=== PATIENT | female | born 1950 | race Caucasian/White ===

== ENCOUNTER → 2018-05-14 15:22 | Outpatient (CLI) | payer OTHER, SELFPAY ==
[2018-05-14 17:30] LABS: Add Manual Diff / Slide Review NO; Basophils Absolute Auto 100 /uL (0-100); Basophils Percent Auto 0.8 % (0-2); Eosinophils Absolute Auto 200 /uL (0-450); Eosinophils Percent Auto 1.7 % (2-4); Hematocrit 35.1 % (36-46); Hemoglobin 11.8 g/dL (12.0-16.0); Lymphocytes Absolute Auto 800 /uL (1100-4500); Mean Corpuscular HGB Conc 33.7 % (30-36); Mean Corpuscular Volume 92.1 fL (80-100); Monocytes Absolute Auto 600 /uL (0-900); Monocytes Percent Auto 6.4 % (3-14); Neutrophils Absolute Auto 7100 /uL (1500-7000); Neutrophils Percent Auto 82.1 % (50-75); Platelet Count 310 X10^3/uL (150-400); Red Blood Cell Count 3.81 X10^6/uL (4.0-5.2); Red Cell Distribution Width 16.1 % (11.6-14.8); White Blood Cell Count 8.6 X10^3/uL (4.5-11.0)
== END ==
DX: D61.818 Other pancytopenia (principal)
CPT/HCPCS: 36415; 85025

== ENCOUNTER → 2018-05-18 15:00 | Oncology outpatient (ONC) | payer OTHER, SELFPAY ==
[2018-04-14 16:05] VITALS: BP 116/63; PULSE 76; RESP 18; TEMP 37.1; O2SAT 99
--- NOTE | 2018-04-14 16:59 | ONC.CONS ---
History of Present Illness - Data of Consult Consult date: 04/14/18 Primary Care Provider: Iraida Elizondo - Consult Narrative Narrative: Diagnosis: Pancytopenia History of present illness: Piper Heath is a 68 year old female who is referred for further evaluation of marked pancytopenia. The patient reports that she has a history of psoriatic arthritis as well as rheumatoid arthritis and diabetes. For the arthritis, she had been taking a combination of methotrexate 7.5 mg weekly as well as Remicade and folic acid. In February, she reports that she had been feeling poorly. She noticed that she was having increasing weakness and fatigue as well as dyspnea on exertion. Her exercise tolerance had been declining. Despite these symptoms, she is anxious to visit her daughter in [place]. While there, she began to have spontaneous bleeding with epistaxis in gingival bleeding as well as vaginal and rectal bleeding and bruising. Because of these symptoms she was brought to the hospital therapy. She was found to have marked pancytopenia with a white count of 0.4 a platelet count of 33 and a hemoglobin of 7.9 and hematocrit of 23. Her neutrophil count was close to 0. Over the ensuing several days, her white count gradually started to improve. She did require both red cell and platelet transfusions. She did have a bone marrow biopsy done that showed a hypocellular marrow but no morphologic evidence of dysplasia or leukemia. There was a left shift suggesting recovery from acute toxic event. 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 Viral studies did not show any have a dense of hepatitis, HIV or EBV or active CMV. The patient was started empirically on steroids and reportedly had rapid recovery after that. During the time when her counts were low, she was treated with antibiotics. She required both platelet and red cell transfusions. She had extensive mucositis as well as what sounds like a petechial skin rash. Those have all resolved. She was put on a prednisone taper at the time of her hospital discharge which she finished about a week or 2 weeks ago. Today, she still has some fatigue but is definitely better than it had been. She has not noted any recent bleeding or bruising. No fevers chills or sweats. She has not had any unexplained pain. Her psoriatic arthritis however has begun to be more active. She notes pain in her hands and her feet. Her past medical history is notable for diabetes. She has chronic renal insufficiency and has had multiple attempts at fistula placement in anticipation of dialysis but has trouble with clotting. She has a history of hypertension and hyperlipidemia. She has a history of psoriatic arthritis. She also has some asthma. Her surgical history is notable for multiple revision the Ann. She has had a prior ankle fracture. She has had a carpal tunnel release. Social history: She is retired. 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 She has a distant history of tobacco but quit many years ago. She does have occasional alcohol use. Her history mother who at age 47 of an unknown rare blood condition. Her father had lymphoma. There is no other family history of malignancy. CC: Ceasar Bear MD Home Medications and Allergies Allergies Allergy/AdvReac Type Severity Reaction Status Date / Time Penicillins Allergy Severe Difficulty Verified 04/14/18 16:12 Breathing Medical History - Social History Smoking Status: Former smoker Substance Use Type: does not use Alcohol Intake: current Alcohol Intake Frequency: 0-2 drinks per day Current Occupational Status: retired Review of Systems - Patient Self-Reported Symptoms SR Constitution: Fatigue/Malaise, Night Sweats SR ears, nose, mouth, throat issues: Cough, Nose bleeds, Mouth sores SR respiratory issues: Shortness of breath SR Cardiovascular issues: Extreme swelling, Dizzy/lightheaded SR Skin issues: Hair loss or scalp prob, Nail changes SR Gastrointestinal issues: Poor or no appetite, Nausea SR Musculoskeletal issues: Joint pain or swelling, Back or neck pain, Difficulty walking SR Neuro issues: Lightheaded/dizzy, Tremors or shaking Constitutional: decreased activity level Ears, nose, mouth, throat: lightheadedness, gingival bleeding, sore throat Cardiovascular: dyspnea on exertion Musculoskeletal: pain Integumentary: rash, bleeding or bruising Exam - Constitutional positive no acute distress, positive average body habitus - Routine HEENT Exam Head: Present: normocephalic, atraumatic Eye: Present: EOMI, PERRL. Absent: conjunctival icterus, scleral injection ENT: Present: mucous membranes moist, oropharynx clear - Routine Neck Exam Present: supple. Absent: lymphadenopathy, thyromegaly - Routine Chest/Breast/Axilla Exam Axillae: Absent: lymphadenopathy - Routine Respiratory Exam Present: Clear to auscultation bilaterally. Absent: rales, wheezes - Routine Cardiovascular Exam Present: RRR, S1, S2. Absent: murmur - Routine Abdominal Exam Present: soft, normoactive bowel sounds. Absent: tenderness, organomegaly, mass - Routine Extremities Exam Absent: cyanosis, clubbing, edema - Routine Back/Spine Exam Back/Spine: Absent: paraspinal tenderness, vertebral tenderness - Routine Skin Exam Present: intact. Absent: petechiae, rash - Routine Neurological Exam Present: alert, oriented X3 - Routine Psychiatric Exam Present: normal affect, normal thought process Results - Labs Her most recent CBC on March 24 showed a white count of 20.8 hemoglobin 10.7 hematocrit 30.8 platelets [id number]. On March 13 her white count had been 0.4 hemoglobin 7.9 hematocrit 23 [place] [address]. Assessment and Plan (1) Pancytopenia Current visit: Yes Status: Acute 68-year-old woman who was hospitalized in [place] with significant pancytopenia. Her bone marrow showed a hypoplasia with a left shift suggesting recovery from a toxic event. She had been on methotrexate and does have chronic renal insufficiency. This could potentially account for cytopenias, thinning of the hair, mucositis and skin rash. Her daughter relates that she recovered quickly after starting on steroids suggesting that there might have been an autoimmune condition as well. Reassuring only this does not look like aplastic anemia or myelodysplasia. There does not seem to be an underlying leukemia. None of her other medications are likely to have caused such profound cytopenias. It is reassuring that she is improving. At this point, I do not think any further evaluation is needed. Instead, we will just observe her blood counts and have her return to clinic in about 4 weeks or so for follow-up. If her counts worsen, we may need to consider additional steroids or perhaps a repeat bone marrow biopsy. Her psoriatic arthritis seems to be flaring. 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 She will return to clinic in about 4 weeks or so for follow-up.
--- NOTE | 2018-05-18 08:21 | ONC.SCHED ---
insurance verified through phone call to patient's insurance [id number], automated response stated patient covered as of 04/20/18
[2018-05-18 15:23] VITALS: BP 122/64; PULSE 64; RESP 16; TEMP 36.6; O2SAT 98
--- NOTE | 2018-05-18 15:37 | P.PNONC_ITS ---
PN -Subjective Interval history: Diagnosis: Pancytopenia Previous treatment has been steroids. Interval history The patient is a 68-year-old woman who returns today for follow-up. She was seen initially in March. She had presented with complaints of fatigue and weakness in [place]. She was found to have a marked pancytopenia requiring both the red cell and platelet transfusions. Her neutrophil count was near 0. She had a bone marrow biopsy done that showed pancytopenia with no significant morphologic abnormalities. Bone marrow was hypocellular. She started treatment with steroids and had rapid improvement in her counts. When I saw her in March, her hemoglobin was 10.7 hematocrit was 30.8 platelets were 387, 000. Her white count was 20.8. Since then, she has tapered off of her prednisone. She has had worsening of her psoriasis. She has had continued fatigue and weakness. She denies any unusual bleeding or bruising. She has had a cold recently but no other infectious complications. Her most recent CBC from earlier this week showed a white count of 8.6 hemoglobin 11.8 hematocrit 35.1 platelets [id number]. Her current medications include albuterol amlodipine try core Advair Lasix gabapentin insulin levothyroxine nortriptyline omeprazole and Crestor. - Patient Self-Reported Symptoms SR Constitution: Fatigue/Malaise, Night Sweats SR ears, nose, mouth, throat issues: Congestion, Hoarseness SR respiratory issues: Cough, Shortness of breath SR Cardiovascular issues: Extreme swelling, Dizzy/lightheaded SR Skin issues: Dry skin, Skin rash or itching, Hair loss or scalp prob SR Gastrointestinal issues: Poor or no appetite, Nausea SR Musculoskeletal issues: Joint pain or swelling, Back or neck pain, Difficulty walking SR Neuro issues: Lightheaded/dizzy Home Medications and Allergies Home Medications Medication Instructions Recorded Confirmed Type Diphenhydramine-Lidocaine Viscous 15 ml PO QID PRN 04/16/18 History Maalox Mouthwash One Touchverio In Vitro Strip 04/16/18 04/16/18 History acebutolol 400 mg PO BID 04/16/18 04/16/18 History albuterol sulfate [Ventolin HFA] 2 puff INHALATION Q4-6H PRN 04/16/18 04/16/18 History amlodipine 5 mg PO DAILY 04/16/18 04/16/18 History fenofibrate nanocrystallized 48 mg PO DAILY 04/16/18 04/16/18 History [Tricor] fluticasone-salmeterol [Advair 1 inh INHALATION BID 04/16/18 04/16/18 History Diskus] furosemide 20 mg PO Q OTHER DAY 04/16/18 04/16/18 History gabapentin 300 mg PO TID 04/16/18 04/16/18 History inhalational spacing device [E-Z 04/16/18 04/16/18 History Spacer] insulin NPH isoph U-100 human 45 unit SUBCUT QPM 04/16/18 04/16/18 History [Novolin N NPH U-100 Insulin] insulin aspart U-100 [Novolog 4 - 10 unit SUBCUT QPM 04/16/18 04/16/18 History Flexpen U-100 Insulin] insulin detemir U-100 [Levemir 36 unit SUBCUT QPM 04/16/18 04/16/18 History FlexTouch U-100 Insuln] insulin syringe-needle U-100 [BD 04/16/18 04/16/18 History Insulin Syringe] levothyroxine [Synthroid] 75 mcg PO DAILY 04/16/18 04/16/18 History nortriptyline 25 mg PO BID 04/16/18 04/16/18 History omega 2-[id number]-fish oil [Fish Oil] 1 cap PO TID 04/16/18 04/16/18 History omeprazole 20 mg PO BID 04/16/18 04/16/18 History pen needle, diabetic [Unifine 04/16/18 04/16/18 History Pentips] rosuvastatin [Crestor] 40 mg PO DAILY 04/16/18 04/16/18 History spironolacton-hydrochlorothiaz 1 tab PO DAILY 04/16/18 04/16/18 History Allergies Allergy/AdvReac Type Severity Reaction Status Date / Time Penicillins Allergy Severe Difficulty Verified 04/14/18 16:12 Breathing Exam - Constitutional positive no acute distress, positive obese - Routine HEENT Exam Head: Present: normocephalic, atraumatic Eye: Present: EOMI, PERRL. Absent: conjunctival icterus, scleral injection ENT: Present: mucous membranes moist, oropharynx clear - Routine Neck Exam Present: supple. Absent: lymphadenopathy, thyromegaly - Routine Respiratory Exam Present: Clear to auscultation bilaterally. Absent: rales, wheezes - Routine Cardiovascular Exam Present: RRR, S1, S2. Absent: murmur - Routine Abdominal Exam Present: soft, normoactive bowel sounds. Absent: tenderness, organomegaly, mass - Routine Extremities Exam Absent: cyanosis, clubbing, edema - Routine Skin Exam Present: intact, rash Comments: She has a rash involving both hands forehead and scalp. - Routine Neurological Exam Present: alert, oriented X3 - Routine Psychiatric Exam Present: normal affect, normal thought process Assessment and Plan (1) Pancytopenia Current visit: Yes Status: Acute 68-year-old woman who was hospitalized in [place] with significant pancytopenia. Her bone marrow showed a hypoplasia with a left shift suggesting recovery from a toxic event. She had been on methotrexate and does have chronic renal insufficiency. This could potentially account for cytopenias, thinning of the hair, mucositis and skin rash. Her daughter relates that she recovered quickly after starting on steroids suggesting that there might have been an autoimmune condition as well. Reassuring only this does not look like aplastic anemia or myelodysplasia. There does not seem to be an underlying leukemia. None of her other medications are likely to have caused such profound cytopenias. It is reassuring that she is improving. Currently, her CBC has almost completely normalized. I think whatever caused her cytopenias has resolved. I think it is okay for her to resume treatment for her psoriasis although I would caution against methotrexate. I have not scheduled a follow-up appointment for her here but would be happy to see her again in the future should the need arise.
== END ==
DX: D61.818 Other pancytopenia (principal)
CPT/HCPCS: 99205; 99214; 99215

== ENCOUNTER 2019-02-18 12:30 | Outpatient (RCR) | payer OTHER, SELFPAY ==
--- NOTE | 2019-01-24 12:44 | PT.OIE ---
Current Diagnoses Fibromyalgia (01/24/19) Visit Care Team Role Provider Type Demetra Winston MD Attending Provider Non-Staff Specialty: Rheumatology Address: [address] [place] [address] [place], [address] Email: Physical Therapy Initial Evaluation PT-OP-A Visit Information Start: 01/24/19 07:53 Freq: Status: Active Protocol: Document 01/24/19 09:45 MB (Rec: 01/24/19 12:42 MB [id number]) Out-Patient Physical Therapy Visit Information Visit Information Visit Type Initial Evaluation Visit Note See assessment Visit Start Time 09:45 Visit Stop Time 10:28 Total Visit Minutes 43 Visit Number 1 Number of PHOTO INTERN Visits 0 Evaluation Information Evaluation Date 01/24/19 Precautions Precautions Pt has fear of falling, reports light-headedness upon sitting up. Lots of pain with little tolerance to ROM and no tolerance to MMT PT-OP-B Current Condition Start: 01/24/19 07:53 Freq: Status: Active Protocol: Document 01/24/19 09:45 MB (Rec: 01/24/19 12:42 MB [id number]) Current Condition History of Current Condition Onset Date Chronic progressive Current Complaints Multi-joint pain History of Current Condition Pt with history of chronic, progressive pain in setting of new dx fibromyaglia. She reports long illness last year d/t immunocompromised. She reports history of psoriatic arthritis and getting Remicade infusions every 6 weeks. She reports pain in B knees, ankles, back, neck and B shoulders. Most pain rated 8/ 10 at rest and with ROM in shoulder and neck. Prior Treatments and Tests Remicade, Methotrexate Treatment Goals Patient/Caregiver Goals To decrease pain and be able to walk with less pain Prior Functional Status Baseline Function- Other I gait with occ use of cane. She does not bring cane to appointment Personal Factors Other Personal Factors That May Effect Multi-joint pain, decreased Therapy/Recovery affect, fear of falling, fear of being looked at (she would like to get in the pool but has concerns about being in her swimsuit), overall fear of movement, balance testing, guarded PT-OP-C Subjective Start: 01/24/19 07:53 Freq: Status: Active Protocol: Document 01/24/19 09:45 MB (Rec: 01/24/19 12:42 MB [id number]) OP-PT Subjective Patient Comments Patient Comments Pt reports constant pain as described above, worse in her shoulders and neck. OP-PT Pain Assessment Comments Pain Comments B ankle, B knee, back, B shoulder and neck pain, worse pain in neck and shoulders rated as 8/10 at rest and with ROM this date. She limits ROM and cannot tolerate MMT d/t pain PT-OP-D Balance Start: 01/24/19 07:53 Freq: Status: Active Protocol: Document 01/24/19 09:45 MB (Rec: 01/24/19 12:44 MB [id number]) Balance Tests Other Other Balance Tests Performed Romberg with socks 30 sec; Romberg eyes closed--pt stops test d/t fear of falling PT-OP-J Posture/Palpation/Skin Start: 01/24/19 07:53 Freq: Status: Active Protocol: Document 01/24/19 09:45 MB (Rec: 01/24/19 12:42 MB [id number]) Posture Evaluation Comments Posture Comments Standing posture: forward head , rounded shoulders, Dowager's hump, decreased thoracic kyphosis, increased lumbar lordosis. Active cervical ROM in standing with reports of 8/ 10 pain and crunching in neck with all movement: extension 10 deg; flexion 20 deg; B SB 10 deg; rotation left 20 deg, right 24 deg Skin Assessment Other Assessments Skin Assessment Comments Some psoriatic patches that are small red dots over her wrists and dorsum of hands PT-OP-M Strength Start: 01/24/19 07:53 Freq: Status: Active Protocol: Document 01/24/19 09:45 MB (Rec: 01/24/19 12:42 MB [id number]) Shoulder Strength Shoulder Manual Muscle Testing Left Comments Pt does not tolerate any MMT. She presents with decreased AROM left shoulder flexion to 70 deg and abduction to 75 deg . Reports neck and scapular pain Right Comments Pt does not tolerate any MMT. She presents with decreased AROM right shoulder flexion to 80 deg and abduction to 80 deg. Reports neck and scapular pain PT-OP-T Assessment and Plan Start: 01/24/19 07:53 Freq: Status: Active Protocol: Document 01/24/19 09:45 MB (Rec: 01/24/19 12:42 MB [id number]) Physical Therapy Assessment Rehab Potential Rehabilitation Potential Fair Evaluation Complexity Number of Personal Factors/Comorbidities 1-2 Impairments Impairments Activity Tolerance,Balance, Gait,Pain,Posture,ROM,Soft Tissue Mobility,Strength, Vestibular Other Impairments Pt reports light headedness when moving from lying to sitting and may benefit from having orthostatics checked in future treatments. She presents with dizziness with eyes closed Romberg and may benefit from having VOR checked/exercises Other Concerns Fall Risk Yes, at least 5 falls in 5 years, light headedness Barriers to Rehabilitation Fearfulness/guarding d/t pain, fear of pain, fear of falling , not wanting people to see her in swimsuit but stating that getting in the pool was helpful on vacation to [place] Goals 5 Fpc Goal (LTG) Pt will perform progressive HEP with I by 03/26/19. LTG Duration 8 weeks 4 Lab Pack Chemist Goal (LTG) Pt will present with improved cervical ROM to at least 30 deg extension, 30 deg flexion, 15 deg B SB and B rotation 35 deg by 03/26/19. LTG Duration 8 weeks 3 Impairment Decreased shoulder range of motion Fpc Goal (LTG) Pt will present with B active shoulder flexion and abduction to at least 140 deg by . LTG Duration 8 weeks 2 Impairment Pain Fpc Goal (LTG) Pt will report a 25% improvement in neck and shoulder pain by 03/26/19. LTG Duration 8 weeks 1 Impairment LOB Fpc Goal (LTG) Pt will perform Romberg with eyes closed with socks donned for at least 30 sec to demonstrate decreased fall risk by 03/26/19. LTG Duration 8 weeks Assessment Summary Assessment Pt is a 68 y/o female presenting with multi-joint pain including ankles, knees, back, shoulders and neck. She reports most pain with her shoulders and neck. She reports 8/10 pain at rest and with PT activities and is very reluctant to participate with ROM, positioning education, and MMT d/t pain and fear of pain. She self-limits balance testing d/t fear of falling. She has a recent dx of fibromyaglia. Other PMH includes automimmune disease, use of Remicade (ongoing infusions), Methotrexate, DM and neuropathy. She reports getting in the pool has helped but is concerned about getting in her swimsuit for acquatic therapy. PT and pt's , Caden, encourage her to consider aquatic therapy and she is agreeable. Pt will benefit from PT to improve flexibility, strength, balance and she may benefit from gentle manual work such as Counterstrain to address fascial changes. PT prognosis is guarded. Physical Therapy Plan Frequency and Duration Frequency of Treatment 2x/Week Duration of Treatment 8 weeks. Start with land treatments and progress to 1x/ wk land, 1x/wk pool Plan of Care Start Date 01/24/19 Plan of Care End Date 03/28/19 Therapeutic Interventions Therapeutic Interventions Aquatic Therapy,Balance Training,Canalithic Repositioning,Coordination Training,Gait Training,Home Exercise Program,Joint Mobilizations,Manual Therapy, Neuromuscular Re-education, Patient/Caregiver Education, Self-Care/Home Management,Soft Tissue Mobilization,Taping, Therapeutic Activities, Therapeutic Exercises, Vestibular Rehabilitation Next Visit Focus/Plan Next Note Type Treatment Note Next Visit Plan Initiate proper positioning, diaphragmatic breathing, tapping, scapular retraction
--- NOTE | 2019-01-26 17:58 | PT.OTN ---
Current Diagnoses Fibromyalgia (01/26/19) Physical Therapy Treatment Note PT-OP-A Visit Information Start: 01/24/19 07:53 Freq: Status: Active Protocol: Document 01/26/19 15:14 MB (Rec: 01/26/19 17:57 MB [id number]) Out-Patient Physical Therapy Visit Information Visit Information Visit Type Treatment Note Visit Note First treatment after eval. Initiated Counterstrain. Progress thoracic flexibility and breathing soon. Visit Start Time 15:14 Visit Stop Time 15:59 Total Visit Minutes 45 Visit Number 2 Number of HABITAT BIOLOGIST Visits 0 PT-OP-B Current Condition Start: 01/24/19 07:53 Freq: Status: Active Protocol: Document 01/24/19 09:45 MB (Rec: 01/24/19 12:42 MB [id number]) Current Condition History of Current Condition Onset Date Chronic progressive Current Complaints Multi-joint pain History of Current Condition Pt with history of chronic, progressive pain in setting of new dx fibromyaglia. She reports long illness last year d/t immunocompromised. She reports history of psoriatic arthritis and getting Remicade infusions every 6 weeks. She reports pain in B knees, ankles, back, neck and B shoulders. Most pain rated 8/ 10 at rest and with ROM in shoulder and neck. Prior Treatments and Tests Remicade, Methotrexate Treatment Goals Patient/Caregiver Goals To decrease pain and be able to walk with less pain Prior Functional Status Baseline Function- Other I gait with occ use of cane. She does not bring cane to appointment Personal Factors Other Personal Factors That May Effect Multi-joint pain, decreased Therapy/Recovery affect, fear of falling, fear of being looked at (she would like to get in the pool but has concerns about being in her swimsuit), overall fear of movement, balance testing, guarded PT-OP-C Subjective Start: 01/24/19 07:53 Freq: Status: Active Protocol: Document 01/26/19 15:14 MB (Rec: 01/26/19 17:57 MB [id number]) OP-PT Subjective Patient Comments Patient Comments Pt states that her left knee is bothering her today. She arrives with cane. PT-OP-D Balance Start: 01/24/19 07:53 Freq: Status: Active Protocol: Document 01/24/19 09:45 MB (Rec: 01/24/19 12:44 MB [id number]) Balance Tests Other Other Balance Tests Performed Romberg with socks 30 sec; Romberg eyes closed--pt stops test d/t fear of falling PT-OP-J Posture/Palpation/Skin Start: 01/24/19 07:53 Freq: Status: Active Protocol: Document 01/24/19 09:45 MB (Rec: 01/24/19 12:42 MB [id number]) Posture Evaluation Comments Posture Comments Standing posture: forward head , rounded shoulders, Dowager's hump, decreased thoracic kyphosis, increased lumbar lordosis. Active cervical ROM in standing with reports of 8/ 10 pain and crunching in neck with all movement: extension 10 deg; flexion 20 deg; B SB 10 deg; rotation left 20 deg, right 24 deg Skin Assessment Other Assessments Skin Assessment Comments Some psoriatic patches that are small red dots over her wrists and dorsum of hands PT-OP-M Strength Start: 01/24/19 07:53 Freq: Status: Active Protocol: Document 01/24/19 09:45 MB (Rec: 01/24/19 12:42 MB [id number]) Shoulder Strength Shoulder Manual Muscle Testing Left Comments Pt does not tolerate any MMT. She presents with decreased AROM left shoulder flexion to 70 deg and abduction to 75 deg . Reports neck and scapular pain Right Comments Pt does not tolerate any MMT. She presents with decreased AROM right shoulder flexion to 80 deg and abduction to 80 deg. Reports neck and scapular pain PT-OP-Q Treatments Start: 01/24/19 07:53 Freq: Status: Active Protocol: Document 01/26/19 15:14 MB (Rec: 01/26/19 17:57 MB [id number]) Manual Therapy Treatment Other Other Manual Treatments Counterstrain to assess and treat fascial restrictions. Treated stacks thoracic lymphatic venous--spinal extension bias, stacks cervical white rami, ALL cervical spine, stacks cervical periosteal. Monitor response. PT-OP-T Assessment and Plan Start: 01/24/19 07:53 Freq: Status: Active Protocol: Document 01/26/19 15:14 MB (Rec: 01/26/19 17:57 MB [id number]) Physical Therapy Assessment Goals 5 Detention Goal (LTG) Pt will perform progressive HEP with I by 03/26/19. LTG Duration 8 weeks 4 [employer] Goal (LTG) Pt will present with improved cervical ROM to at least 30 deg extension, 30 deg flexion, 15 deg B SB and B rotation 35 deg by 03/26/19. LTG Duration 8 weeks 3 Impairment Decreased shoulder range of motion [employer] Goal (LTG) Pt will present with B active shoulder flexion and abduction to at least 140 deg by . LTG Duration 8 weeks 2 Impairment Pain [employer] Goal (LTG) Pt will report a 25% improvement in neck and shoulder pain by 03/26/19. LTG Duration 8 weeks 1 Impairment LOB [employer] Goal (LTG) Pt will perform Romberg with eyes closed with socks donned for at least 30 sec to demonstrate decreased fall risk by 03/26/19. LTG Duration 8 weeks Assessment Summary Assessment Initiated Countestrain this date. Monitor response. Consider thoracic mobility and breathing exercises next treatment date. Physical Therapy Plan Frequency and Duration Frequency of Treatment 2x/Week Duration of Treatment 8 weeks. Start with land treatments and progress to 1x/ wk land, 1x/wk pool Plan of Care Start Date 01/24/19 Plan of Care End Date 03/28/19 Therapeutic Interventions Therapeutic Interventions Aquatic Therapy,Balance Training,Canalithic Repositioning,Coordination Training,Gait Training,Home Exercise Program,Joint Mobilizations,Manual Therapy, Neuromuscular Re-education, Patient/Caregiver Education, Self-Care/Home Management,Soft Tissue Mobilization,Taping, Therapeutic Activities, Therapeutic Exercises, Vestibular Rehabilitation Next Visit Focus/Plan Next Note Type Treatment Note Next Visit Plan Initiate proper positioning, diaphragmatic breathing, tapping, scapular retraction
--- NOTE | 2019-01-31 14:30 | PT-OP ANOTE ---
Pt called late to cancel appt, feeling to sick to come in, thought might feel better earlier in the day to attend.
--- NOTE | 2019-02-02 15:47 | PT.OTN ---
Current Diagnoses Fibromyalgia (02/02/19) Physical Therapy Treatment Note PT-OP-A Visit Information Start: 01/24/19 07:53 Freq: Status: Active Protocol: Document 02/02/19 15:18 SP (Rec: 02/02/19 15:47 SP [id number]) Out-Patient Physical Therapy Visit Information Visit Information Visit Type Treatment Note Visit Start Time 14:28 Visit Stop Time 15:18 Total Visit Minutes 50 Visit Number 3 Number of ROUTE SALES TRAINEE Visits 1 PT-OP-B Current Condition Start: 01/24/19 07:53 Freq: Status: Active Protocol: Document 01/24/19 09:45 MB (Rec: 01/24/19 12:42 MB [id number]) Current Condition History of Current Condition Onset Date Chronic progressive Current Complaints Multi-joint pain History of Current Condition Pt with history of chronic, progressive pain in setting of new dx fibromyaglia. She reports long illness last year d/t immunocompromised. She reports history of psoriatic arthritis and getting Remicade infusions every 6 weeks. She reports pain in B knees, ankles, back, neck and B shoulders. Most pain rated 8/ 10 at rest and with ROM in shoulder and neck. Prior Treatments and Tests Remicade, Methotrexate Treatment Goals Patient/Caregiver Goals To decrease pain and be able to walk with less pain Prior Functional Status Baseline Function- Other I gait with occ use of cane. She does not bring cane to appointment Personal Factors Other Personal Factors That May Effect Multi-joint pain, decreased Therapy/Recovery affect, fear of falling, fear of being looked at (she would like to get in the pool but has concerns about being in her swimsuit), overall fear of movement, balance testing, guarded PT-OP-C Subjective Start: 01/24/19 07:53 Freq: Status: Active Protocol: Document 02/02/19 15:18 SP (Rec: 02/02/19 15:47 SP [id number]) OP-PT Subjective Patient Comments Patient Comments Pt stated reported that her L knee is bothering her still today. She arrived utilizing her SPC. Pt stated still recovering from the counterstrain treatment, it seemed helpful and is more aware of where her is pain is coming from anterior/posterior neck, tension anterior chest forward posture, hard to explain. PT-OP-D Balance Start: 01/24/19 07:53 Freq: Status: Active Protocol: Document 01/24/19 09:45 MB (Rec: 01/24/19 12:44 MB [id number]) Balance Tests Other Other Balance Tests Performed Romberg with socks 30 sec; Romberg eyes closed--pt stops test d/t fear of falling PT-OP-J Posture/Palpation/Skin Start: 01/24/19 07:53 Freq: Status: Active Protocol: Document 01/24/19 09:45 MB (Rec: 01/24/19 12:42 MB [id number]) Posture Evaluation Comments Posture Comments Standing posture: forward head , rounded shoulders, Dowager's hump, decreased thoracic kyphosis, increased lumbar lordosis. Active cervical ROM in standing with reports of 8/ 10 pain and crunching in neck with all movement: extension 10 deg; flexion 20 deg; B SB 10 deg; rotation left 20 deg, right 24 deg Skin Assessment Other Assessments Skin Assessment Comments Some psoriatic patches that are small red dots over her wrists and dorsum of hands PT-OP-M Strength Start: 01/24/19 07:53 Freq: Status: Active Protocol: Document 01/24/19 09:45 MB (Rec: 01/24/19 12:42 MB [id number]) Shoulder Strength Shoulder Manual Muscle Testing Left Comments Pt does not tolerate any MMT. She presents with decreased AROM left shoulder flexion to 70 deg and abduction to 75 deg . Reports neck and scapular pain Right Comments Pt does not tolerate any MMT. She presents with decreased AROM right shoulder flexion to 80 deg and abduction to 80 deg. Reports neck and scapular pain PT-OP-Q Treatments Start: 01/24/19 07:53 Freq: Status: Active Protocol: Document 02/02/19 15:18 SP (Rec: 02/02/19 15:47 SP [id number]) Therapeutic Exercises Supine Exercises scap retraction Reps/Minutes 5 sec hold x5 Comments repeated seated and standing back to wall neck ROM Supine Exercise Name DNF, cervical rotation Side bilateral Reps/Minutes 5 sec hold x5 Comments repeated seated and standing back to wall Sidelying Exercises thoracic rotation Side bilateral Reps/Minutes x5 each side Comments cued for scapular glide into protraction/retraction ROM and TS movement Sitting Exercises scap retraction Reps/Minutes 5 sec hold x5 Comments contact cues for neutral cervical spine with chest lift neck ROM/stretch Sitting Exercise Name DNF, cervical rotation Equipment Used stick behind back (HEP) Reps/Minutes 5 sec hold x5 Comments today therapist arm mid back to back of head for body neutral awareness Standing Exercises scap retraction Reps/Minutes 5 sec hold x5-10 Comments back to wall DNF Reps/Minutes 5 sec hold x5 Comments back to wall Manual Therapy Treatment Soft Tissue Mobilization neck STMs Body Location scm, scalenes, suboccipitals, upper traps Mobilization Type Cross-Friction,Myofascial Release,Rolling,Sustained Pressure Intensity/Depth Superficial Body Position Supine Comments Gentle contact and pressure PT-OP-T Assessment and Plan Start: 01/24/19 07:53 Freq: Status: Active Protocol: Document 02/02/19 15:18 SP (Rec: 02/02/19 15:47 SP [email or web address]) Physical Therapy Assessment Assessment Summary Assessment Tx focused on decreased muscle tension, increase ROM to improve forward posture. Pt reported a little increase in pain from 7/10 pre PT to 8/10 post tx but felt good and able to rotation head more with more open posture. Consider thoracic mobility and breathing exercises next treatment date. Physical Therapy Plan Frequency and Duration Frequency of Treatment 2x/Week Duration of Treatment 8 weeks. Start with land treatments and progress to 1x/ wk land, 1x/wk pool Plan of Care Start Date 01/24/19 Plan of Care End Date 03/28/19 Therapeutic Interventions Therapeutic Interventions Aquatic Therapy,Balance Training,Canalithic Repositioning,Coordination Training,Gait Training,Home Exercise Program,Joint Mobilizations,Manual Therapy, Neuromuscular Re-education, Patient/Caregiver Education, Self-Care/Home Management,Soft Tissue Mobilization,Taping, Therapeutic Activities, Therapeutic Exercises, Vestibular Rehabilitation Next Visit Focus/Plan Next Note Type Treatment Note Next Visit Plan Initiate proper positioning, diaphragmatic breathing, tapping, scapular retraction
--- NOTE | 2019-02-08 15:13 | PT.OTN ---
Current Diagnoses Fibromyalgia (02/08/19) Physical Therapy Treatment Note PT-OP-A Visit Information Start: 01/24/19 07:53 Freq: Status: Active Protocol: Document 02/08/19 12:47 LRN (Rec: 02/08/19 13:31 LRN [id number]) Out-Patient Physical Therapy Visit Information Visit Information Visit Type Treatment Note Visit Start Time 12:47 Visit Stop Time 13:30 Total Visit Minutes 43 Visit Number 4 Number of SALES REVIEW CLERK Visits 1 Evaluation Information Evaluation Date 01/24/19 Precautions Precautions Pt has fear of falling, reports light-headedness upon sitting up. Lots of pain with little tolerance to ROM and no tolerance to MMT PT-OP-B Current Condition Start: 01/24/19 07:53 Freq: Status: Active Protocol: Document 01/24/19 09:45 MB (Rec: 01/24/19 12:42 MB [id number]) Current Condition History of Current Condition Onset Date Chronic progressive Current Complaints Multi-joint pain History of Current Condition Pt with history of chronic, progressive pain in setting of new dx fibromyaglia. She reports long illness last year d/t immunocompromised. She reports history of psoriatic arthritis and getting Remicade infusions every 6 weeks. She reports pain in B knees, ankles, back, neck and B shoulders. Most pain rated 8/ 10 at rest and with ROM in shoulder and neck. Prior Treatments and Tests Remicade, Methotrexate Treatment Goals Patient/Caregiver Goals To decrease pain and be able to walk with less pain Prior Functional Status Baseline Function- Other I gait with occ use of cane. She does not bring cane to appointment Personal Factors Other Personal Factors That May Effect Multi-joint pain, decreased Therapy/Recovery affect, fear of falling, fear of being looked at (she would like to get in the pool but has concerns about being in her swimsuit), overall fear of movement, balance testing, guarded PT-OP-C Subjective Start: 01/24/19 07:53 Freq: Status: Active Protocol: Document 02/08/19 12:47 LRN (Rec: 02/08/19 13:31 LRN [id number]) OP-PT Subjective Patient Comments Patient Comments No change. Patient Reported Progress Same PT-OP-D Balance Start: 01/24/19 07:53 Freq: Status: Active Protocol: Document 01/24/19 09:45 MB (Rec: 01/24/19 12:44 MB [id number]) Balance Tests Other Other Balance Tests Performed Romberg with socks 30 sec; Romberg eyes closed--pt stops test d/t fear of falling PT-OP-J Posture/Palpation/Skin Start: 01/24/19 07:53 Freq: Status: Active Protocol: Document 01/24/19 09:45 MB (Rec: 01/24/19 12:42 MB [id number]) Posture Evaluation Comments Posture Comments Standing posture: forward head , rounded shoulders, Dowager's hump, decreased thoracic kyphosis, increased lumbar lordosis. Active cervical ROM in standing with reports of 8/ 10 pain and crunching in neck with all movement: extension 10 deg; flexion 20 deg; B SB 10 deg; rotation left 20 deg, right 24 deg Skin Assessment Other Assessments Skin Assessment Comments Some psoriatic patches that are small red dots over her wrists and dorsum of hands PT-OP-M Strength Start: 01/24/19 07:53 Freq: Status: Active Protocol: Document 01/24/19 09:45 MB (Rec: 01/24/19 12:42 MB [id number]) Shoulder Strength Shoulder Manual Muscle Testing Left Comments Pt does not tolerate any MMT. She presents with decreased AROM left shoulder flexion to 70 deg and abduction to 75 deg . Reports neck and scapular pain Right Comments Pt does not tolerate any MMT. She presents with decreased AROM right shoulder flexion to 80 deg and abduction to 80 deg. Reports neck and scapular pain PT-OP-Q Treatments Start: 01/24/19 07:53 Freq: Status: Active Protocol: Document 02/08/19 12:47 LRN (Rec: 02/08/19 13:31 LRN [id number]) Therapeutic Exercises Supine Exercises scap retraction Supine Exercise Name Scap retraction Side bilateral Reps/Minutes 5 sec hold x5 Comments repeated seated and standing back to wall neck ROM Supine Exercise Name DNF, cervical rotation Side bilateral Reps/Minutes 5 sec hold x8 Comments repeated seated and standing back to wall Sidelying Exercises thoracic rotation Side bilateral Reps/Minutes x5 each side Comments cued for scapular glide into protraction/retraction ROM and TS movement Sitting Exercises neck ROM/stretch Sitting Exercise Name cervical rotation Reps/Minutes 5 sec hold Comments Corrections needed for head to remain in neutral Manual Therapy Treatment Soft Tissue Mobilization neck STMs Body Location R suboccipitals, upper traps Mobilization Type Sustained Pressure Intensity/Depth Moderate Body Position Supine Manual Techniques MWM Type Mob With Movement: for L facet L3-L4, L4-L5 with C rot right Body Position Sitting Reps/Duration 10 x 2 Comments Pt spouse showed on second set what he can do to assist pt to improve cervical R rotation . PT-OP-T Assessment and Plan Start: 01/24/19 07:53 Freq: Status: Active Protocol: Document 02/08/19 12:47 LRN (Rec: 02/08/19 13:31 LRN [id number]) Physical Therapy Assessment Assessment Summary Assessment Pt needs further training on proper cervical positioning with ex's because she tends to hold her head in flexion. She appears to be doing scapular retraction well, may need to combine with scapular depression. Pt had soft tissue tension in R neck, upper shoulder that was released with sustained pressure but she had limited ability to sustain relaxation of muscle tone. Pt showed improved C/S R rot with MWM and improved mobility immediately after STM. Physical Therapy Plan Frequency and Duration Frequency of Treatment 2x/Week Duration of Treatment 8 weeks. Start with land treatments and progress to 1x/ wk land, 1x/wk pool Plan of Care Start Date 01/24/19 Plan of Care End Date 03/28/19 Next Visit Focus/Plan Next Note Type Treatment Note Next Visit Plan Add diaphragmatic breathing, taping. Continue to work towards improved C/S and shoulder ROM, and progress HEP .
--- NOTE | 2019-02-11 15:21 | PT.OTN ---
Current Diagnoses Fibromyalgia (02/08/19) Physical Therapy Treatment Note PT-OP-A Visit Information Start: 01/24/19 07:53 Freq: Status: Active Protocol: Document 02/11/19 12:30 LJ (Rec: 02/11/19 15:21 LJ [id number]) Out-Patient Physical Therapy Visit Information Visit Information Visit Type Aquatic Treatment Note Visit Start Time 12:30 Visit Stop Time 13:15 Total Visit Minutes 45 Visit Number 5 Number of CUSTOMS COMPLIANCE MANAGER Visits 1 Evaluation Information Evaluation Date 01/24/19 Precautions Precautions Pt has fear of falling, reports light-headedness upon sitting up. Lots of pain with little tolerance to ROM and no tolerance to MMT PT-OP-B Current Condition Start: 01/24/19 07:53 Freq: Status: Active Protocol: Document 01/24/19 09:45 MB (Rec: 01/24/19 12:42 MB [id number]) Current Condition History of Current Condition Onset Date Chronic progressive Current Complaints Multi-joint pain History of Current Condition Pt with history of chronic, progressive pain in setting of new dx fibromyaglia. She reports long illness last year d/t immunocompromised. She reports history of psoriatic arthritis and getting Remicade infusions every 6 weeks. She reports pain in B knees, ankles, back, neck and B shoulders. Most pain rated 8/ 10 at rest and with ROM in shoulder and neck. Prior Treatments and Tests Remicade, Methotrexate Treatment Goals Patient/Caregiver Goals To decrease pain and be able to walk with less pain Prior Functional Status Baseline Function- Other I gait with occ use of cane. She does not bring cane to appointment Personal Factors Other Personal Factors That May Effect Multi-joint pain, decreased Therapy/Recovery affect, fear of falling, fear of being looked at (she would like to get in the pool but has concerns about being in her swimsuit), overall fear of movement, balance testing, guarded PT-OP-C Subjective Start: 01/24/19 07:53 Freq: Status: Active Protocol: Document 02/11/19 12:30 LJ (Rec: 02/11/19 15:21 LJ [id number]) OP-PT Subjective Patient Comments Patient Comments Pt reports she is very tight in her shoulders and neck. Somewhat apprehensive about aquatic therapy. joined her to learn the exercises so he can eventually assist her after DC from therapy. PT-OP-D Balance Start: 01/24/19 07:53 Freq: Status: Active Protocol: Document 01/24/19 09:45 MB (Rec: 01/24/19 12:44 MB [id number]) Balance Tests Other Other Balance Tests Performed Romberg with socks 30 sec; Romberg eyes closed--pt stops test d/t fear of falling PT-OP-J Posture/Palpation/Skin Start: 01/24/19 07:53 Freq: Status: Active Protocol: Document 01/24/19 09:45 MB (Rec: 01/24/19 12:42 MB [id number]) Posture Evaluation Comments Posture Comments Standing posture: forward head , rounded shoulders, Dowager's hump, decreased thoracic kyphosis, increased lumbar lordosis. Active cervical ROM in standing with reports of 8/ 10 pain and crunching in neck with all movement: extension 10 deg; flexion 20 deg; B SB 10 deg; rotation left 20 deg, right 24 deg Skin Assessment Other Assessments Skin Assessment Comments Some psoriatic patches that are small red dots over her wrists and dorsum of hands PT-OP-M Strength Start: 01/24/19 07:53 Freq: Status: Active Protocol: Document 01/24/19 09:45 MB (Rec: 01/24/19 12:42 MB [id number]) Shoulder Strength Shoulder Manual Muscle Testing Left Comments Pt does not tolerate any MMT. She presents with decreased AROM left shoulder flexion to 70 deg and abduction to 75 deg . Reports neck and scapular pain Right Comments Pt does not tolerate any MMT. She presents with decreased AROM right shoulder flexion to 80 deg and abduction to 80 deg. Reports neck and scapular pain PT-OP-Q Treatments Start: 01/24/19 07:53 Freq: Status: Active Protocol: Document 02/08/19 12:47 LRN (Rec: 02/08/19 13:31 LRN [id number]) Therapeutic Exercises Supine Exercises scap retraction Supine Exercise Name Scap retraction Side bilateral Reps/Minutes 5 sec hold x5 Comments repeated seated and standing back to wall neck ROM Supine Exercise Name DNF, cervical rotation Side bilateral Reps/Minutes 5 sec hold x8 Comments repeated seated and standing back to wall Sidelying Exercises thoracic rotation Side bilateral Reps/Minutes x5 each side Comments cued for scapular glide into protraction/retraction ROM and TS movement Sitting Exercises neck ROM/stretch Sitting Exercise Name cervical rotation Reps/Minutes 5 sec hold Comments Corrections needed for head to remain in neutral Manual Therapy Treatment Soft Tissue Mobilization neck STMs Body Location R suboccipitals, upper traps Mobilization Type Sustained Pressure Intensity/Depth Moderate Body Position Supine Manual Techniques MWM Type Mob With Movement: for L facet L3-L4, L4-L5 with C rot right Body Position Sitting Reps/Duration 10 x 2 Comments Pt spouse showed on second set what he can do to assist pt to improve cervical R rotation . PT-OP-S Aquatic Treatment Start: 02/11/19 14:50 Freq: Status: Active Protocol: Document 02/11/19 12:30 LJ (Rec: 02/11/19 15:21 LJ [id number]) Aquatics Treatment Pool Entry/Exit Pool Entry/Exit Method Stairs Assistance Standby Assistance Comments held pts hand getting out of the pool Water Walking forward with UE paddles Water Level Chest Level Walking Equipment UE paddles Level of Assistance Standby Assistance,Contact Guard Assistance,Verbal Cues backwards with breas stroke arms Water Level Chest Level Level of Assistance Standby Assistance,Contact Guard Assistance,Verbal Cues forward with breaststroke arms Water Level Chest Level Level of Assistance Standby Assistance,Contact Guard Assistance,Verbal Cues Backwards Water Level Chest Level Level of Assistance Standby Assistance,Contact Guard Assistance,Verbal Cues Sideways Water Level Chest Level Level of Assistance Standby Assistance,Verbal Cues Forwards Water Level Chest Level Level of Assistance Standby Assistance,Contact Guard Assistance,Verbal Cues Lower Extremity Exercises flex/ext Body Position Standing Water Level Chest Level Reps/Duration 10 ea Comments hand hold on wall, gentle ab,ad Body Position Standing Water Level Chest Level Reps/Duration 10 ea Comments hand hold on wall, gentle hip Details CW CCW Body Position Standing Water Level Chest Level Reps/Duration 10 [address] Comments hand hold on wall, gentle Lower Extremity Stretches adductors Body Position Standing Equipment Small Noodle Reps/Duration 2x30 Comments gentle HS, quads, hip flexor Body Position Standing Water Level Chest Level Equipment Small Noodle Reps/Duration 2x30 Comments gentle Upper Extremity Exercises ab/ad, flex/ext, Body Position Standing Water Level Neck Level Reps/Duration 10 ea Upper Extremity Stretches rhomboids Body Position Standing Water Level Chest Level Reps/Duration 2x30 Comments at wall traps Body Position Standing Water Level Chest Level Reps/Duration 2x30 Comments at wall Spinal Exercises cervical rotation Water Level [place] Comments during gentle movements [place] Activities [place] Activities Bicycle,Bicycle Backwards Other Activities breast stroke arms, flex/ext arms Equipment belt Duration 8 min Comments gentle movements Manual Techniques Bad Ragaz for trunk and UE ROM Aquatic Massage Upper traps, cervical spine, thoracic spine PT-OP-T Assessment and Plan Start: 01/24/19 07:53 Freq: Status: Active Protocol: Document 02/11/19 12:30 VIPUL (Rec: 02/11/19 15:21 LJ [id number]) Physical Therapy Assessment Rehab Potential Rehabilitation Potential Fair Evaluation Complexity Number of Personal Factors/Comorbidities 1-2 Impairments Impairments Activity Tolerance,Balance, Gait,Pain,Posture,ROM,Soft Tissue Mobility,Strength, Vestibular Other Impairments Pt reports light headedness when moving from lying to sitting and may benefit from having orthostatics checked in future treatments. She presents with dizziness with eyes closed Romberg and may benefit from having VOR checked/exercises Other Concerns Fall Risk Yes, at least 5 falls in 5 years, light headedness Barriers to Rehabilitation Fearfulness/guarding d/t pain, fear of pain, fear of falling , not wanting people to see her in swimsuit but stating that getting in the pool was helpful on vacation to [place] Goals 5 Group Home Goal (LTG) Pt will perform progressive HEP with I by 03/26/19. LTG Duration 8 weeks 4 Group Home Goal (LTG) Pt will present with improved cervical ROM to at least 30 deg extension, 30 deg flexion, 15 deg B SB and B rotation 35 deg by 03/26/19. LTG Duration 8 weeks 3 Impairment Decreased shoulder range of motion Group Home Goal (LTG) Pt will present with B active shoulder flexion and abduction to at least 140 deg by . LTG Duration 8 weeks 2 Impairment Pain Group Home Goal (LTG) Pt will report a 25% improvement in neck and shoulder pain by 03/26/19. LTG Duration 8 weeks 1 Impairment LOB Group Home Goal (LTG) Pt will perform Romberg with eyes closed with socks donned for at least 30 sec to demonstrate decreased fall risk by 03/26/19. LTG Duration 8 weeks Assessment Summary Assessment Pt very guarded and somewhat nervous during Bad Ragaz but able to relax for a short duration then tighten up again . Pt did not experience dizziness but but was kept still upon slow standing to regain balance and orientation . Pt could respond to cueing for relaxing shoulders but would tighten up again. Attempted to perform scapular depression but was unable to hold the position. Cervical ROM improved some with massage and Bad Ragaz. Physical Therapy Plan Frequency and Duration Frequency of Treatment 2x/Week Duration of Treatment 8 weeks. Start with land treatments and progress to 1x/ wk land, 1x/wk pool Plan of Care Start Date 01/24/19 Plan of Care End Date 03/28/19 Therapeutic Interventions Therapeutic Interventions Aquatic Therapy,Balance Training,Canalithic Repositioning,Coordination Training,Gait Training,Home Exercise Program,Joint Mobilizations,Manual Therapy, Neuromuscular Re-education, Patient/Caregiver Education, Self-Care/Home Management,Soft Tissue Mobilization,Taping, Therapeutic Activities, Therapeutic Exercises, Vestibular Rehabilitation Next Visit Focus/Plan Next Note Type Treatment Note Next Visit Plan Add diaphragmatic breathing, taping. Continue to work towards improved C/S and shoulder ROM, and progress HEP . Chi for next aquatic visit.
--- NOTE | 2019-02-18 15:32 | PT.OTN ---
Current Diagnoses Fibromyalgia (02/18/19) Physical Therapy Treatment Note PT-OP-A Visit Information Start: 01/24/19 07:53 Freq: Status: Active Protocol: Document 02/18/19 12:30 LJ (Rec: 02/18/19 15:32 LJ [id number]) Out-Patient Physical Therapy Visit Information Visit Information Visit Type Aquatic Treatment Note Visit Start Time 12:30 Visit Stop Time 13:09 Total Visit Minutes 39 Visit Number 6 Number of STRIPER SPRAY GUN Visits 1 Evaluation Information Evaluation Date 01/24/19 Precautions Precautions Pt has fear of falling, reports light-headedness upon sitting up. Lots of pain with little tolerance to ROM and no tolerance to MMT PT-OP-B Current Condition Start: 01/24/19 07:53 Freq: Status: Active Protocol: Document 01/24/19 09:45 MB (Rec: 01/24/19 12:42 MB [id number]) Current Condition History of Current Condition Onset Date Chronic progressive Current Complaints Multi-joint pain History of Current Condition Pt with history of chronic, progressive pain in setting of new dx fibromyaglia. She reports long illness last year d/t immunocompromised. She reports history of psoriatic arthritis and getting Remicade infusions every 6 weeks. She reports pain in B knees, ankles, back, neck and B shoulders. Most pain rated 8/ 10 at rest and with ROM in shoulder and neck. Prior Treatments and Tests Remicade, Methotrexate Treatment Goals Patient/Caregiver Goals To decrease pain and be able to walk with less pain Prior Functional Status Baseline Function- Other I gait with occ use of cane. She does not bring cane to appointment Personal Factors Other Personal Factors That May Effect Multi-joint pain, decreased Therapy/Recovery affect, fear of falling, fear of being looked at (she would like to get in the pool but has concerns about being in her swimsuit), overall fear of movement, balance testing, guarded PT-OP-C Subjective Start: 01/24/19 07:53 Freq: Status: Active Protocol: Document 02/18/19 12:30 LJ (Rec: 02/18/19 15:32 LJ [id number]) OP-PT Subjective Patient Comments Patient Comments Pt reports she has been having anxiety and weakness along wiith tremors for several days . States she might not be able to make it through the whole appointment. PT-OP-D Balance Start: 01/24/19 07:53 Freq: Status: Active Protocol: Document 01/24/19 09:45 MB (Rec: 01/24/19 12:44 MB [id number]) Balance Tests Other Other Balance Tests Performed Romberg with socks 30 sec; Romberg eyes closed--pt stops test d/t fear of falling PT-OP-J Posture/Palpation/Skin Start: 01/24/19 07:53 Freq: Status: Active Protocol: Document 01/24/19 09:45 MB (Rec: 01/24/19 12:42 MB [id number]) Posture Evaluation Comments Posture Comments Standing posture: forward head , rounded shoulders, Dowager's hump, decreased thoracic kyphosis, increased lumbar lordosis. Active cervical ROM in standing with reports of 8/ 10 pain and crunching in neck with all movement: extension 10 deg; flexion 20 deg; B SB 10 deg; rotation left 20 deg, right 24 deg Skin Assessment Other Assessments Skin Assessment Comments Some psoriatic patches that are small red dots over her wrists and dorsum of hands PT-OP-M Strength Start: 01/24/19 07:53 Freq: Status: Active Protocol: Document 01/24/19 09:45 MB (Rec: 01/24/19 12:42 MB [id number]) Shoulder Strength Shoulder Manual Muscle Testing Left Comments Pt does not tolerate any MMT. She presents with decreased AROM left shoulder flexion to 70 deg and abduction to 75 deg . Reports neck and scapular pain Right Comments Pt does not tolerate any MMT. She presents with decreased AROM right shoulder flexion to 80 deg and abduction to 80 deg. Reports neck and scapular pain PT-OP-Q Treatments Start: 01/24/19 07:53 Freq: Status: Active Protocol: Document 02/08/19 12:47 LRN (Rec: 02/08/19 13:31 LRN [id number]) Therapeutic Exercises Supine Exercises scap retraction Supine Exercise Name Scap retraction Side bilateral Reps/Minutes 5 sec hold x5 Comments repeated seated and standing back to wall neck ROM Supine Exercise Name DNF, cervical rotation Side bilateral Reps/Minutes 5 sec hold x8 Comments repeated seated and standing back to wall Sidelying Exercises thoracic rotation Side bilateral Reps/Minutes x5 each side Comments cued for scapular glide into protraction/retraction ROM and TS movement Sitting Exercises neck ROM/stretch Sitting Exercise Name cervical rotation Reps/Minutes 5 sec hold Comments Corrections needed for head to remain in neutral Manual Therapy Treatment Soft Tissue Mobilization neck STMs Body Location R suboccipitals, upper traps Mobilization Type Sustained Pressure Intensity/Depth Moderate Body Position Supine Manual Techniques MWM Type Mob With Movement: for L facet L3-L4, L4-L5 with C rot right Body Position Sitting Reps/Duration 10 x 2 Comments Pt spouse showed on second set what he can do to assist pt to improve cervical R rotation . PT-OP-S Aquatic Treatment Start: 02/11/19 14:50 Freq: Status: Active Protocol: Document 02/18/19 12:30 LJ (Rec: 02/18/19 15:32 LJ [id number]) Aquatics Treatment Pool Entry/Exit Pool Entry/Exit Method Stairs Assistance Standby Assistance Comments held pts hand getting into the pool Water Walking backwards with breas stroke arms Water Level Chest Level Level of Assistance Standby Assistance,Verbal Cues forward with breaststroke arms Water Level Chest Level Level of Assistance Standby Assistance,Verbal Cues Backwards Water Level Chest Level Level of Assistance Standby Assistance,Verbal Cues Sideways Water Level Chest Level Level of Assistance Standby Assistance,Verbal Cues Forwards Water Level Chest Level Level of Assistance Standby Assistance,Verbal Cues Lower Extremity Exercises flex/ext Body Position Standing Water Level Chest Level Reps/Duration 10 ea Comments gentle motions ab,ad Body Position Standing Water Level Chest Level Reps/Duration 10 ea Comments gentle motions hip Details CW CCW Body Position Standing Water Level Chest Level Reps/Duration 10 each dir Comments gentle motion Lower Extremity Stretches adductors Body Position Standing Equipment Small Noodle Reps/Duration 2x30 Comments gentle HS, quads, hip flexor Body Position Standing Water Level Chest Level Equipment Small Noodle Reps/Duration 2x30 Comments gentle Upper Extremity Stretches rhomboids Body Position Standing Water Level Chest Level Reps/Duration 2x30 Comments at wall traps Body Position Standing Water Level Chest Level Reps/Duration 2x30 Comments at wall Spinal Exercises posterior pelvic tilt in standing Body Position Standing Water Level Neck Level Reps/Duration 2x30 Comments during AI Chi cervical rotation Water Level Neck Level Comments during Chi, gentle movements; difficult [place] Activities [place] Activities Bicycle Equipment belt, #2.5 Duration 6 min Comments gentle movements req'd cueing to relax and slow down Chi Chi Duration (Minutes) 15 Comments Pt with difficulty in coordination and relaxation Manual Techniques Aquatic Massage Upper traps, cervical spine, thoracic spine PT-OP-T Assessment and Plan Start: 01/24/19 07:53 Freq: Status: Active Protocol: Document 02/18/19 12:30 VIPUL (Rec: 02/18/19 15:32 VIPUL [id number]) Physical Therapy Assessment Rehab Potential Rehabilitation Potential Fair Evaluation Complexity Number of Personal Factors/Comorbidities 1-2 Impairments Impairments Activity Tolerance,Balance, Gait,Pain,Posture,ROM,Soft Tissue Mobility,Strength, Vestibular Other Impairments Pt reports light headedness when moving from lying to sitting and may benefit from having orthostatics checked in future treatments. She presents with dizziness with eyes closed Romberg and may benefit from having VOR checked/exercises Other Concerns Fall Risk Yes, at least 5 falls in 5 years, light headedness Barriers to Rehabilitation Fearfulness/guarding d/t pain, fear of pain, fear of falling , not wanting people to see her in swimsuit but stating that getting in the pool was helpful on vacation to [place] Goals 5 Shelter Goal (LTG) Pt will perform progressive HEP with I by 03/26/19. LTG Duration 8 weeks 4 Office Rental Clerk Goal (LTG) Pt will present with improved cervical ROM to at least 30 deg extension, 30 deg flexion, 15 deg B SB and B rotation 35 deg by 03/26/19. LTG Duration 8 weeks 3 Impairment Decreased shoulder range of motion Office Rental Clerk Goal (LTG) Pt will present with B active shoulder flexion and abduction to at least 140 deg by . LTG Duration 8 weeks 2 Impairment Pain Shelter Goal (LTG) Pt will report a 25% improvement in neck and shoulder pain by 03/26/19. LTG Duration 8 weeks 1 Impairment LOB Shelter Goal (LTG) Pt will perform Romberg with eyes closed with socks donned for at least 30 sec to demonstrate decreased fall risk by 03/26/19. LTG Duration 8 weeks Assessment Summary Assessment Pt guarded and anxious during session. Reported being able to feel the stretches during Chi portion of therapy. Lcks coordination and balance so she was instructed to brace against wall for support. Was able to remain in the pool for 39 minutes. Exited pool with assist from standing by behind her and therapist on top of stairs for CGA to locker room. Physical Therapy Plan Frequency and Duration Frequency of Treatment 2x/Week Duration of Treatment 8 weeks. Start with land treatments and progress to 1x/ wk land, 1x/wk pool Plan of Care Start Date 01/24/19 Plan of Care End Date 03/28/19 Therapeutic Interventions Therapeutic Interventions Aquatic Therapy,Balance Training,Canalithic Repositioning,Coordination Training,Gait Training,Home Exercise Program,Joint Mobilizations,Manual Therapy, Neuromuscular Re-education, Patient/Caregiver Education, Self-Care/Home Management,Soft Tissue Mobilization,Taping, Therapeutic Activities, Therapeutic Exercises, Vestibular Rehabilitation Next Visit Focus/Plan Next Note Type Treatment Note Next Visit Plan Continue with Chi emphasizing diaphragmaic breathing and relaxing. Continue with Chi and gentle stretching of posterior chain, pectoral mms, and cervical spine.
--- NOTE | 2019-02-22 13:31 | PT.OPDS ---
Current Diagnoses Fibromyalgia (02/18/19) Visit Care Team Role Provider Type Demetra Winston MD Attending Provider Non-Staff Specialty: Rheumatology Address: [address] [place] [address] [place], [address] Email: Visit Number Visit Number 6 Discharge Summary PT-OP-B Current Condition Start: 01/24/19 07:53 Freq: Status: Active Protocol: Document 01/24/19 09:45 MB (Rec: 01/24/19 12:42 MB [id number]) Current Condition History of Current Condition Onset Date Chronic progressive Current Complaints Multi-joint pain History of Current Condition Pt with history of chronic, progressive pain in setting of new dx fibromyaglia. She reports long illness last year d/t immunocompromised. She reports history of psoriatic arthritis and getting Remicade infusions every 6 weeks. She reports pain in B knees, ankles, back, neck and B shoulders. Most pain rated 8/ 10 at rest and with ROM in shoulder and neck. Prior Treatments and Tests Remicade, Methotrexate Treatment Goals Patient/Caregiver Goals To decrease pain and be able to walk with less pain Prior Functional Status Baseline Function- Other I gait with occ use of cane. She does not bring cane to appointment Personal Factors Other Personal Factors That May Effect Multi-joint pain, decreased Therapy/Recovery affect, fear of falling, fear of being looked at (she would like to get in the pool but has concerns about being in her swimsuit), overall fear of movement, balance testing, guarded PT-OP-C Subjective Start: 01/24/19 07:53 Freq: Status: Active Protocol: Document 02/18/19 12:30 LJ (Rec: 02/18/19 15:32 LJ [id number]) OP-PT Subjective Patient Comments Patient Comments Pt reports she has been having anxiety and weakness along wiith tremors for several days . States she might not be able to make it through the whole appointment. PT-OP-D Balance Start: 01/24/19 07:53 Freq: Status: Active Protocol: Document 01/24/19 09:45 MB (Rec: 01/24/19 12:44 MB [id number]) Balance Tests Other Other Balance Tests Performed Romberg with socks 30 sec; Romberg eyes closed--pt stops test d/t fear of falling PT-OP-J Posture/Palpation/Skin Start: 01/24/19 07:53 Freq: Status: Active Protocol: Document 01/24/19 09:45 MB (Rec: 01/24/19 12:42 MB [id number]) Posture Evaluation Comments Posture Comments Standing posture: forward head , rounded shoulders, Dowager's hump, decreased thoracic kyphosis, increased lumbar lordosis. Active cervical ROM in standing with reports of 8/ 10 pain and crunching in neck with all movement: extension 10 deg; flexion 20 deg; B SB 10 deg; rotation left 20 deg, right 24 deg Skin Assessment Other Assessments Skin Assessment Comments Some psoriatic patches that are small red dots over her wrists and dorsum of hands PT-OP-M Strength Start: 01/24/19 07:53 Freq: Status: Active Protocol: Document 01/24/19 09:45 MB (Rec: 01/24/19 12:42 MB [id number]) Shoulder Strength Shoulder Manual Muscle Testing Left Comments Pt does not tolerate any MMT. She presents with decreased AROM left shoulder flexion to 70 deg and abduction to 75 deg . Reports neck and scapular pain Right Comments Pt does not tolerate any MMT. She presents with decreased AROM right shoulder flexion to 80 deg and abduction to 80 deg. Reports neck and scapular pain PT-OP-T Assessment and Plan Start: 01/24/19 07:53 Freq: Status: Active Protocol: Document 02/22/19 13:30 MB (Rec: 02/22/19 13:31 MB [id number]) Physical Therapy Assessment Assessment Summary Assessment PT receives message from front office. Pt's called to cancel all PT treatments d/ t pt having a work-up for PD. Will d/c PT.
== END 2019-02-24 13:09 ==
LOC: PHYS 12:30
PROVIDERS: Visit Provider Internal Medicine Rheumatology
DX: M79.7 Fibromyalgia (principal)
CPT/HCPCS: 97110; 97113; 97140; 97162

== ENCOUNTER 2019-10-28 13:45 | Emergency (ER) | payer MEDICARE, OTHER, SELFPAY ==
[2019-10-28] VITALS (17 sets, daily range): BP systolic 109–146; BP diastolic 54–60; PULSE 66–109; RESP 16–20; TEMP 37.4–38; O2SAT 88–98; BMI 32.1
--- NOTE | 2019-10-28 13:57 | DI.RAD.S_ITS ---
PROCEDURE: XR CHEST 1V INDICATIONS: flu-like symptoms TECHNIQUE: One view of the chest was acquired. COMPARISON: None. FINDINGS: Surgical changes and devices: None. Lungs and pleura: Lungs are clear. No pleural effusions or pneumothorax. Mediastinum: Mediastinal contours appear normal. The heart appears to be enlarged. Bones and chest wall: No suspicious bony lesions. Overlying soft tissues appear unremarkable. IMPRESSION: Cardiomegaly without overt heart failure. No pneumonia. Dictated by: Deion Armstrong M.D. on 10/28/2019 at 14:25 Approved by: Deion Armstrong M.D. on 10/28/2019 at 14:27
--- NOTE | 2019-10-28 13:59 | PC.NURSE ---
Pt's Caden informed of visitor policy, told to wait in car or at home until results were back and we would call when the result are back. Caden [phone]
--- NOTE | 2019-10-28 14:12 | ED.FEVER ---
HPI - Fever General Chief Complaint: Fever Stated Complaint: Weakness, fever Time Seen by Provider: 10/28/19 13:48 Source: patient and EMS Mode of arrival: EMS Limitations: no limitations History of Present Illness HPI Narrative: 70-year-old female former smoker with history of diabetes, arthritis, GERD, asthma, renal failure, elevated liver enzymes, history of neutropenia and mucositis presents by EMS for evaluation of increasing generalized weakness resulting in a fall. She states that over the past few days she has had fever, dry hacking cough and poor appetite. She was so weak today that when trying to ambulate she fell and was caught by her . She did not suffer an injury as a consequence of her fall. She denies any blurred vision or trouble with speech nor any other neurologic findings. She has no chest pain or shortness of breath. She was seen a few days ago at a clinic and swabbed for COVID, but does not know results. MD complaint: fever, malaise and weakness Onset (ago): day(s) Temperature Source: oral Associated symptoms: chills, cough and shortness of breath Relieving factors: nothing Exacerbating factors: nothing Treatments prior to arrival fever: none Related Data Home Medications Medication Instructions Recorded Confirmed Diphenhydramine-Lidocaine Viscous 15 ml PO QID PRN 04/16/18 Maalox Mouthwash One Touchverio In Vitro Strip 04/16/18 04/16/18 acebutolol 400 mg PO BID 04/16/18 04/16/18 albuterol sulfate [Ventolin HFA] 2 puff INHALATION Q4-6H PRN 04/16/18 04/16/18 amlodipine 5 mg PO DAILY 04/16/18 04/16/18 fenofibrate nanocrystallized 48 mg PO DAILY 04/16/18 04/16/18 [Tricor] fluticasone propion-salmeterol 1 inh INHALATION BID 04/16/18 04/16/18 [Advair Diskus] furosemide 20 mg PO Q OTHER DAY 04/16/18 04/16/18 gabapentin 300 mg PO TID 04/16/18 04/16/18 inhalational spacing device [E-Z 04/16/18 04/16/18 Spacer] insulin NPH isoph U-100 human 45 unit SUBCUT QPM 04/16/18 04/16/18 [Novolin N NPH U-100 Insulin] insulin aspart U-100 [Novolog 4 - 10 unit SUBCUT QPM 04/16/18 04/16/18 Flexpen U-100 Insulin] insulin detemir U-100 [Levemir 36 unit SUBCUT QPM 04/16/18 04/16/18 FlexTouch U-100 Insuln] insulin syringe-needle U-100 [BD 04/16/18 04/16/18 Insulin Syringe] levothyroxine [Synthroid] 75 mcg PO DAILY 04/16/18 04/16/18 nortriptyline 25 mg PO BID 04/16/18 04/16/18 omega 4-kxb-[id number]-fish oil [Fish Oil] 1 cap PO TID 04/16/18 04/16/18 omeprazole 20 mg PO BID 04/16/18 04/16/18 pen needle, diabetic [Unifine 04/16/18 04/16/18 Pentips] rosuvastatin [Crestor] 40 mg PO DAILY 04/16/18 04/16/18 spironolacton-hydrochlorothiaz 1 tab PO DAILY 04/16/18 04/16/18 Allergies Allergy/AdvReac Type Severity Reaction Status Date / Time Penicillins Allergy Severe Difficulty Verified 04/14/18 16:12 Breathing Review of Systems Constitutional Constitutional: Reports body ache(s), Reports chills, Reports fatigue, Reports fever(s), Denies frequent falls, Denies lethargy and Denies weakness Eyes Eyes: Denies change in vision, Denies eye discharge, Denies irritation and Denies loss of vision ENT Ears, Nose, Mouth, and Throat: Denies change in voice, Denies dizziness, Denies neck pain, Denies sore throat and Denies throat swelling Cardiovascular Cardiovascular: Denies chest pain, Denies irregular heart rhythm, Denies lightheadedness, Denies palpitations, Reports dyspnea, Denies dyspnea on exertion and Denies orthopnea Respiratory Respiratory: Reports cough, Reports dyspnea, Denies dyspnea on exertion and Denies wheezing Gastrointestinal Gastrointestinal: Denies abdominal pain, Denies change in bowel habits, Denies diarrhea, Denies nausea and Denies vomiting Musculoskeletal Musculoskeletal: Denies neck pain and Denies numbness Integumentary/Breasts Skin/Breast: Denies pruritus, Denies erythema, Denies rash and Denies wounds Neurologic Neurologic: Denies behavioral changes, Denies confusion, Denies dizziness, Denies frequent falls, Denies loss of vision, Denies numbness and Denies weakness Psychiatric Psychiatric: Denies anxiety, Denies behavioral changes, Denies confusion, Denies depression, Denies homicidal ideation and Denies suicidal ideation Endocrine Endocrine: Reports fatigue, Denies flushing and Denies palpitations Hematologic/Lymphatic Hematologic/Lymphatic: Denies easy bruising Allergic/Immunologic Allergic/Immunologic: Denies urticaria, Denies throat swelling and Denies wheezing Patient History Social History Smoking Status: Former smoker alcohol intake: current substance use type: does not use Smoking Status: Former smoker alcohol intake frequency: 0-2 drinks per day Exam Narrative Exam Narrative: GENERAL: [70] year old patient appears stated age. Well-nourished, well-developed patient, in moderate distress. HEAD: Atraumatic. Normocephalic. EYES: Pupils equal round and reactive. Extraocular motions intact. No scleral icterus. No injection or drainage. ENT: Dry mucous membranes Nose without bleeding, purulent drainage. Throat without erythema, tonsillar hypertrophy or exudate. Airway patent. NECK: Trachea midline. Non tender CARDIOVASCULAR: Regular rate and rhythm without murmurs, gallops, or rubs. RESPIRATORY: Faint crackles bilateral bases. GASTROINTESTINAL: Abdomen soft, non-tender, nondistended. EXTREMITIES: No edema or joint tenderness. BACK: Nontender without deformity or crepitance. No flank tenderness. NEURO: AOx3. SKIN: No rash or erythema of visible areas Initial Vital Signs Initial Vital Signs: Vital Signs Pulse Rate 68 10/28/19 13:48 Pulse Oximetry 94 10/28/19 13:48 Course Orders Ordered: ED Orders 10/28/19 13:57 XR chest 1V Stat Blood Culture Stat 10/28/19 14:20 C-Reactive Protein Quant Stat Complete Blood Count AUTO DIFF Stat Comprehensive Metabolic Panel Stat D Dimer Stat Ferritin Stat Lactate (Lactic Acid) Stat NT-proBNP (BNP-Adult 18+) Stat Procalcitonin Stat Troponin & CK Cardiac Panel Stat 10/28/19 15:43 CT chest wo con Stat US renal complete Stat 10/28/19 16:54 Urine Culture Stat Urine Microscopic Stat Sodium Chloride (Normal Saline 0.9%) 1,000 mls @ 125 mls/hr IV CONT WERNER Last Admin: 10/28/19 14:20 Dose: 125 mls/hr Documented by: YESI Discontinued Medications Sodium Chloride (Normal Saline 0.9%) 1,000 mls @ 1,000 mls/hr IV BOLUS ONE Stop: 10/28/19 16:21 Last Infusion: 10/28/19 17:00 Dose: 0 mls/hr Documented by: Admin: 10/28/19 15:29 Dose: 1,000 mls/hr Documented by: YESI Levofloxacin (Levaquin) 500 mg in 100 mls @ 100 mls/hr IV NOW ONE Stop: 10/28/19 16:21 Last Infusion: 10/28/19 17:00 Dose: 0 mls/hr Documented by: Admin: 10/28/19 15:29 Dose: 100 mls/hr Documented by: YESI Consultations Consultation #1: call to hospitalist, unable to keep here given creatinine of over five. Patient certified medical assistant and PCP are in [place], call to [facility] Consultation #2: call to [facility]. Hospitalist is Dr. Najera. Initial call to him, but he is not home energy consultant supervisor for patient's group. Given another number. Dr. Baac at [place] is happy to accept. Vital Signs Vital signs: Vital Signs - 8 hr 10/28/19 13:48 10/28/19 13:49 10/28/19 14:00 Temperature Pulse Rate 68 72 72 Respiratory Rate Blood Pressure 112/57 L 113/57 L Pulse Oximetry 94 95 94 10/28/19 14:30 10/28/19 14:31 10/28/19 15:00 Temperature 100.4 F H Pulse Rate 71 76 71 Respiratory Rate 18 Blood Pressure 117/57 L 112/57 L Pulse Oximetry 95 95 88 L 10/28/19 15:01 Temperature Pulse Rate 70 Respiratory Rate Blood Pressure 146/54 H Pulse Oximetry MDM - Fever Lab Data Result diagrams: 10/28/19 14:20 10/28/19 14:20 Labs: Lab Results 10/28/19 10/28/19 10/28/19 Range/Units 14:10 14:10 14:20 WBC (4.5-11.0) X10^3/uL RBC (4.0-5.2) X10^6/uL Hgb (12.0-16.0) g/dL Hct (36-46) % MCV (80-100) fL MCH (26-34) PG MCHC (30-36) % RDW (11.6-14.8) % Plt Count (150-400) X10^3/uL Neut % (Auto) (50-75) % Lymph % (Auto) (25-40) % [place] % (Auto) (3-14) % Eos % (Auto) (2-4) % Baso % (Auto) (0-2) % Neut # (Auto) (2951-5307) /uL Lymph # (Auto) (4203-1414) /uL [place] # (Auto) (0-900) /uL Eos # (Auto) (0-450) /uL Baso # (Auto) (0-100) /uL D-Dimer 888 H (<230) ng/mL Sodium (137-145) mmol/L Potassium (3.4-5.1) mmol/L Chloride (98-107) mmol/L Carbon Dioxide (22-32) mmol/L BUN (7-17) mg/dL Creatinine (0.52-1.04) mg/dL Estimated GFR (>60) mL/min BUN/Creatinine Ratio (6-22) Glucose (80-110) mg/dL Lactate (0.7-2.1) mmol/L Calcium (8.4-10.2) mg/dL Ferritin (11-264) ng/mL Total Bilirubin (0.2-1.3) mg/dL AST (14-36) IU/L ALT (<35) IU/L Alkaline Phosphatase (38-126) U/L Total Creatine Kinase (30-135) U/L CK-MB (CK-2) (<2.37) ng/mL CK-MB (CK-2) Rel Index (1.5-5.0) % Troponin I (0.01-0.034) ng/mL C-Reactive Protein (<1.0) mg/dL NT-Pro-B Natriuret Pep (<125) pg/mL Total Protein (6.3-8.2) g/dL Albumin (3.5-5.0) g/dL Globulin (1.7-4.1) g/dL Albumin/Globulin Ratio (1.0-2.8) Procalcitonin (<0.5) ng/mL Urine RBC (0-5/HPF) Urine WBC (0-5/HPF) Ur Squamous Epith Cells (0-5/HPF) Ur Renal Epithelial Cell (0-1/HPF) Amorphous Sediment Urine Bacteria (None) Granular Casts (None) Urine Mucus (Negative) Ur Culture Indicated? COVID-19 PCR Cancelled Negative 10/28/19 10/28/19 10/28/19 Range/Units 14:20 14:20 14:20 WBC 18.0 H (4.5-11.0) X10^3/uL RBC 3.37 L (4.0-5.2) X10^6/uL Hgb 10.9 L (12.0-16.0) g/dL Hct 32.1 L (36-46) % MCV 95.5 (80-100) fL MCH 32.2 (26-34) PG MCHC 33.8 (30-36) % RDW 13.2 (11.6-14.8) % Plt Count 138 L (150-400) X10^3/uL Neut % (Auto) 84.7 H (50-75) % Lymph % (Auto) 2.3 L (25-40) % [place] % (Auto) 12.1 (3-14) % Eos % (Auto) 0.2 L (2-4) % Baso % (Auto) 0.7 (0-2) % Neut # (Auto) 15388 H (0970-4983) /uL Lymph # (Auto) 400 L (0016-9653) /uL [place] # (Auto) 2200 H (0-900) /uL Eos # (Auto) 0 (0-450) /uL Baso # (Auto) 100 (0-100) /uL D-Dimer (<230) ng/mL Sodium 127 L (137-145) mmol/L Potassium 3.1 L (3.4-5.1) mmol/L Chloride 88 L (98-107) mmol/L Carbon Dioxide 22 (22-32) mmol/L BUN 64 H (7-17) mg/dL Creatinine 5.13 H (0.52-1.04) mg/dL Estimated GFR 8.4 L (>60) mL/min BUN/Creatinine Ratio 12.5 (6-22) Glucose 227 H (80-110) mg/dL Lactate (0.7-2.1) mmol/L Calcium 9.9 (8.4-10.2) mg/dL Ferritin 279 H (11-264) ng/mL Total Bilirubin 0.6 (0.2-1.3) mg/dL AST 331 H (14-36) IU/L ALT 71 H (<35) IU/L Alkaline Phosphatase 138 H (38-126) U/L Total Creatine Kinase 7953 H (30-135) U/L CK-MB (CK-2) 5.22 H (<2.37) ng/mL CK-MB (CK-2) Rel Index 0.1 L (1.5-5.0) % Troponin I < 0.012 (0.01-0.034) ng/mL C-Reactive Protein 57.2 H (<1.0) mg/dL NT-Pro-B Natriuret Pep 1350 H (<125) pg/mL Total Protein 7.1 (6.3-8.2) g/dL Albumin 3.6 (3.5-5.0) g/dL Globulin 3.5 (1.7-4.1) g/dL Albumin/Globulin Ratio 1.0 (1.0-2.8) Procalcitonin 78.51 H (<0.5) ng/mL Urine RBC (0-5/HPF) Urine WBC (0-5/HPF) Ur Squamous Epith Cells (0-5/HPF) Ur Renal Epithelial Cell (0-1/HPF) Amorphous Sediment Urine Bacteria (None) Granular Casts (None) Urine Mucus (Negative) Ur Culture Indicated? COVID-19 PCR 10/28/19 10/28/19 Range/Units 14:20 16:54 WBC (4.5-11.0) X10^3/uL RBC (4.0-5.2) X10^6/uL Hgb (12.0-16.0) g/dL Hct (36-46) % MCV (80-100) fL MCH (26-34) PG MCHC (30-36) % RDW (11.6-14.8) % Plt Count (150-400) X10^3/uL Neut % (Auto) (50-75) % Lymph % (Auto) (25-40) % [place] % (Auto) (3-14) % Eos % (Auto) (2-4) % Baso % (Auto) (0-2) % Neut # (Auto) (4747-6384) /uL Lymph # (Auto) (5867-1250) /uL [place] # (Auto) (0-900) /uL Eos # (Auto) (0-450) /uL Baso # (Auto) (0-100) /uL D-Dimer (<230) ng/mL Sodium (137-145) mmol/L Potassium (3.4-5.1) mmol/L Chloride (98-107) mmol/L Carbon Dioxide (22-32) mmol/L BUN (7-17) mg/dL Creatinine (0.52-1.04) mg/dL Estimated GFR (>60) mL/min BUN/Creatinine Ratio (6-22) Glucose (80-110) mg/dL Lactate 1.2 (0.7-2.1) mmol/L Calcium (8.4-10.2) mg/dL Ferritin (11-264) ng/mL Total Bilirubin (0.2-1.3) mg/dL AST (14-36) IU/L ALT (<35) IU/L Alkaline Phosphatase (38-126) U/L Total Creatine Kinase (30-135) U/L CK-MB (CK-2) (<2.37) ng/mL CK-MB (CK-2) Rel Index (1.5-5.0) % Troponin I (0.01-0.034) ng/mL C-Reactive Protein (<1.0) mg/dL NT-Pro-B Natriuret Pep (<125) pg/mL Total Protein (6.3-8.2) g/dL Albumin (3.5-5.0) g/dL Globulin (1.7-4.1) g/dL Albumin/Globulin Ratio (1.0-2.8) Procalcitonin (<0.5) ng/mL Urine RBC 5-10/hpf H (0-5/HPF) Urine WBC 30-100/hpf H (0-5/HPF) Ur Squamous Epith Cells 0-1 /hpf (0-5/HPF) Ur Renal Epithelial Cell 0-1/hpf (0-1/HPF) Amorphous Sediment 2+ Urine Bacteria Many (>30) H (None) Granular Casts 5-10/lpf (None) Urine Mucus 1+ H (Negative) Ur Culture Indicated? Specimen cultured COVID-19 PCR Point of Care Testing Glucose POC 223 Urine Dip Bedside Urine Glucose Negative Bedside Urine Bilirubin - Negative Bedside Urine Ketone - Negative Urine Specific [place] 1.025 Bedside Urine Occult Blood +++ Bedside Urine pH 5.5 Bedside Urine Protein ++ 100 Bedside Urine Urobilinogen - Negative Bedside Urine Nitrite - Negative Bedside Urine Leukocytes +++ 500 Esterase Critical Care Time Critical Care Time Critical Care Time: Yes Total Critical Care Time: 30 Attestation: The high probability of a clinically significant, sudden or life threatening deterioration of the [] system(s) required my full and direct attention, intervention and personal management. The aggregate critical care time was [30] minutes. This time is in addition to time spent performing reported procedures but includes the following: [x] Data Review and interpretation [x] Patient assessment and monitoring of vital signs [x] Documentation [x] Medication orders and management Discharge Plan [facility]ression: Sepsis due to urinary tract infection, Acute kidney injury Prescriptions: No Action spironolacton-hydrochlorothiaz 25-25 mg Tablet 1 tab PO DAILY RF: 0 Diphenhydramine-Lidocaine Viscous Maalox Mouthwash 15 ml PO QID PRN (Reason: Mouth Pain) RF: 0 insulin NPH isoph U-100 human [Novolin N NPH U-100 Insulin] 100 unit/mL Suspension 45 unit SUBCUT QPM RF: 0 insulin aspart U-100 [Novolog Flexpen U-100 Insulin] 100 unit/mL Insulin Pen 4 - 10 unit SUBCUT QPM RF: 0 insulin detemir U-100 [Levemir FlexTouch U-100 Insuln] 100 unit/mL (3 mL) Insulin Pen 36 unit SUBCUT QPM RF: 0 amlodipine 5 mg Tablet 5 mg PO DAILY RF: 0 nortriptyline 25 mg Capsule 25 mg PO BID RF: 0 (DME) insulin syringe-needle U-100 [BD Insulin Syringe] 0.3 mL 29 gauge x 1/2 Syringe RF: 0 gabapentin 300 mg Capsule 300 mg PO TID RF: 0 fluticasone propion-salmeterol [Advair Diskus] 250-50 mcg/dose Blister With Device 1 inh INHALATION BID RF: 0 acebutolol 400 mg Capsule 400 mg PO BID RF: 0 levothyroxine [Synthroid] 75 mcg Tablet 75 mcg PO DAILY RF: 0 furosemide 20 mg Tablet 20 mg PO Q OTHER DAY RF: 0 albuterol sulfate [Ventolin HFA] 90 mcg/actuation Hfa Aerosol Inhaler 2 puff INHALATION Q4-6H PRN (Reason: Bronchodilation) RF: 0 rosuvastatin [Crestor] 40 mg Tablet 40 mg PO DAILY RF: 0 fenofibrate nanocrystallized [Tricor] 48 mg Tablet 48 mg PO DAILY RF: 0 omeprazole 20 mg Tablet,Delayed Release (Dr/Ec) 20 mg PO BID RF: 0 (DME) pen needle, diabetic [Unifine Pentips] 31 gauge x 5/16 Needle RF: 0 (DME) inhalational spacing device [E-Z Spacer] Spacer RF: 0 omega 8-jjw-ekf-fish oil [Fish Oil] 1,000 mg (120 mg-180 mg) Capsule 1 cap PO TID RF: 0 (DME) One Touchverio In Vitro Strip strip RF: 0
[2019-10-28] MEDS: SODIUM CHLORIDE 0.9% 1,000 ML 125 ML IV (14:20)
[2019-10-28 14:38] LABS: Add Manual Diff / Slide Review NO; Basophils Absolute Auto 100 /uL (0-100); Basophils Percent Auto 0.7 % (0-2); Eosinophils Absolute Auto 0 /uL (0-450); Eosinophils Percent Auto 0.2 % (2-4); Hematocrit 32.1 % (36-46); Hemoglobin 10.9 g/dL (12.0-16.0); Lymphocytes Absolute Auto 400 /uL (1100-4500); Lymphocytes Percent Auto 2.3 % (25-40); Mean Corpuscular HGB Conc 33.8 % (30-36); Mean Corpuscular Hemoglobin 32.2 PG (26-34); Mean Corpuscular Volume 95.5 fL (80-100); Monocytes Absolute Auto 2200 /uL (0-900); Monocytes Percent Auto 12.1 % (3-14); Neutrophils Absolute Auto 15200 /uL (1500-7000); Neutrophils Percent Auto 84.7 % (50-75); Platelet Count 138 X10^3/uL (150-400); Red Blood Cell Count 3.37 X10^6/uL (4.0-5.2); Red Cell Distribution Width 13.2 % (11.6-14.8)
[2019-10-28 14:48] LABS: D Dimer 888 ng/mL (<230)
[2019-10-28 14:49] LABS: Lactate (Lactic Acid) 1.2 mmol/L (0.7-2.1)
[2019-10-28 14:53] LABS: Alanine Aminotransferase 71 IU/L (<35); Albumin 3.6 g/dL (3.5-5.0); Alkaline Phosphatase 138 U/L (38-126); Aspartate Aminotransferase 331 IU/L (14-36); BUN Creatinine Ratio 12.5 (6-22); Bilirubin Total 0.6 mg/dL (0.2-1.3); Blood Urea Nitrogen 64 mg/dL (7-17); Calcium 9.9 mg/dL (8.4-10.2); Carbon Dioxide 22 mmol/L (22-32); Chloride 88 mmol/L (98-107); Estimated Glomerular Filt Rate 8.4 mL/min (>60); Globulin 3.5 g/dL (1.7-4.1); Glucose 227 mg/dL (80-110); HEMOLYSIS < 15 (0-50); Potassium 3.1 mmol/L (3.4-5.1); Sodium 127 mmol/L (137-145); Total Protein 7.1 g/dL (6.3-8.2)
[2019-10-28 15:03] LABS: NT-proBNP (BNP-Adult 18+) 1350 pg/mL (<125); Troponin I < 0.012 ng/mL (0.01-0.034)
[2019-10-28 15:15] LABS: Procalcitonin 78.51 ng/mL (<0.5)
[2019-10-28 15:25] LABS: Ferritin 279 ng/mL (11-264)
[2019-10-28] MEDS: SODIUM CHLORIDE 0.9% 1,000 ML 1000 ML IV (15:29)
[2019-10-28] MEDS: levoFLOXacin 500 MG/100 ML PIGGYBACK 100 MG IV (15:29)
[2019-10-28 15:36] LABS: Creatine Kinase 7953 U/L (30-135)
[2019-10-28 15:41] LABS: COVID19 -Nasal RAPID Negative (Negative)
--- NOTE | 2019-10-28 15:43 | DI.US.S_ITS ---
PROCEDURE: US RENAL COMPLETE INDICATIONS: RENAL FAILURE TECHNIQUE: Real-time scanning was performed of the kidneys and bladder, with image documentation. COMPARISON: None. FINDINGS: Kidneys: Kidneys are normal in size. Right kidney measures 11.2 cm long; left kidney measures 10.6 cm long. Right renal cortical thickness is 1.4 cm; left renal cortical thickness is 1.7 cm. Renal cortical echotexture is normal. No hydronephrosis or nephrolithiasis. No suspicious solid mass lesions. There is a complex cyst seen involving the superior right kidney with an apparent septation that measures 2.5 x 1.9 x 2.2 cm. No abnormal vascularity is seen. Bladder: The bladder is not seen. Miscellaneous: No free pelvic fluid. IMPRESSION: No hydronephrosis is seen. A 2.5 cm complex cyst is seen involving the right kidney. Please consider a dedicated renal mass protocol CT, when clinically appropriate, for further evaluation. The urinary bladder is not seen. Dictated by: Alfredo Fleming M.D. on 10/28/2019 at 15:17 Approved by: Alfredo Fleming M.D. on 10/28/2019 at 15:19
--- NOTE | 2019-10-28 15:43 | DI.CT.S_ITS ---
PROCEDURE: CT CHEST WO CON INDICATIONS: cough, short of breath, fatigue, weakness TECHNIQUE: Noncontrast 5 mm thick sections acquired from the pulmonary apices to the posterior costophrenic angles. 1 mm lung window, 5 mm thick coronal and sagittal and 7 mm axial MIP reformats were then acquired. For radiation dose reduction, the following was used: automated exposure control, adjustment of mA and/or kV according to patient size. COMPARISON: [facility], US, US RENAL COMPLETE, 10/28/2019, 15:59. [facility], CR, XR CHEST 1V, 10/28/2019, 14:10. FINDINGS: Image quality: Excellent. Lungs and pleura: No acute air space opacities. No pleural effusions or pneumothorax. Central and peripheral airways are patent and normal in caliber. Mediastinum: Heart size is normal. There is a small pericardial effusion. No mediastinal adenopathy by size criteria. Thoracic aorta and central pulmonary arteries are normal in size. Esophagus is normal in caliber. There is a small hiatal hernia. Bones and chest wall: No suspicious bony lesions. There is a remote fracture seen involving the right posterior 1st rib. No vertebral body compression fractures. No axillary or supraclavicular adenopathy by size criteria. Thyroid gland demonstrates no significant noncontrast abnormality. Abdomen: At the posterior aspect of the left kidney, there is an apparent hyperdense cyst seen that measures 15 Hounsfield units and 12 mm. The visualized portions of the upper abdominal structures are otherwise unremarkable for imaging technique. IMPRESSION: Clear lungs. Small pericardial effusion. Apparent hyperdense cyst involving the posterior LEFT kidney. (This is different than the complex cyst involving the RIGHT kidney seen on the accompanying renal ultrasound.) When clinically appropriate, a dedicated renal mass protocol CT is suggested for further evaluation. Incidental note is made of: Small hiatal hernia Remote right posterior 1st rib fracture Dictated by: Alfredo Fleming M.D. on 10/28/2019 at 15:46 Approved by: Alfredo Fleming M.D. on 10/28/2019 at 15:50
[2019-10-28 15:48] LABS: CKMB % Relative Index 0.1 % (1.5-5.0); Creatine Kinase MB 5.22 ng/mL (<2.37)
[2019-10-28 15:57] LABS: C-Reactive Protein Quant 57.2 mg/dL (<1.0)
[2019-10-28 17:24] LABS: RBC Urine 5-10/HPF (0-5/HPF); WBC Urine 30-100/HPF (0-5/HPF)
[2019-10-28 17:25] LABS: Amorphous Sediment Urine 2+; Bacteria Urine Many (>30); Culture Indicated Urine Specimen Cultured; Granular Casts Urine 5-10/LPF; Mucus Urine 1+ (Negative); Renal Epithelial Cells Urine 0-1/HPF (0-1/HPF); Squamous Epithelial Cell Urine 0-1 /HPF (0-5/HPF)
[2019-10-29 07:04] LABS: Enterococcus species Not Detected (Not Detect); Listeria monocytogenes Not Detected (Not Detect); Staphylococcus species Not Detected (Not Detect)
[2019-10-29 07:05] LABS: Acinetobacter baumannii Not Detected (Not Detect); Candida albicans Not Detected (Not Detect); Candida glabrata Not Detected (Not Detect); Candida krusei Not Detected (Not Detect); Candida parapsilosis Not Detected (Not Detect); Candida tropicalis Not Detected (Not Detect); Enterobacter cloacae complex Not Detected (Not Detect); Enterobacteriaceae species Detected (Not Detect); Haemophilus influenzae Not Detected (Not Detect); KPC (carbapenem-resist gene) Not Detected (Not Detect); Neisseria meningitidis Not Detected (Not Detect); Proteus species Not Detected (Not Detect); Pseudomonas aeruginosa Not Detected (Not Detect); Serratia marcescens Not Detected (Not Detect); Streptococcus agalactiae (Gr B Not Detected (Not Detect); Streptococcus pneumonia Not Detected (Not Detect); Streptococcus pyogenes (Gr A) Not Detected (Not Detect); Streptococcus species Not Detected (Not Detect)
[2019-10-29 07:06] LABS: E. coli Detected (Not Detect)
== END 2019-10-28 20:10 | disposition short-term general hospital (02) ==
PROVIDERS: Emergency Provider Emergency Medicine
DX: A41.9 Sepsis, unspecified organism (principal); N39.0 Urinary tract infection, site not specified; N17.9 Acute kidney failure, unspecified; R06.02 Shortness of breath; R05 Cough; R53.1 Weakness; E11.9 Type 2 diabetes mellitus without complications; W19.XXXA Unspecified fall, initial encounter
CPT/HCPCS: 36415; 71045; 71250; 76770; 80053; 81003; 81015; 82550; 82553; 82728; 82962; 83605; 83880; 84145; 84484; 85025; 85379; 86140; 87040; 87077; 87086; 87150; 87186; 87205; 87635; 96365; 96366; 99284; 99291; J1956

== ENCOUNTER 2022-09-29 05:22 | Emergency (ER) | payer MEDICARE, OTHER, SELFPAY ==
[2022-09-29] VITALS (14 sets, daily range): BP systolic 102–176; BP diastolic 55–82; PULSE 85–105; RESP 12–26; TEMP 36.6; O2SAT 94–100; BMI 25.5
--- NOTE | 2022-09-29 05:39 | DI.RAD.S_ITS ---
PROCEDURE: XR CHEST 1V INDICATIONS: cough TECHNIQUE: One view of the chest was acquired. COMPARISON: [facility], CR, XR CHEST 1V, 10/28/2019, 14:10. FINDINGS: Surgical changes and devices: None. Lungs and pleura: Lungs are clear. No pleural effusions or pneumothorax. Mediastinum: Mediastinal contours appear normal. Heart size is normal. Bones and chest wall: No suspicious bony lesions. Overlying soft tissues appear unremarkable. IMPRESSION: No acute cardiopulmonary abnormalities or focal airspace disease. No significant discrepancy with the operations supervisor 2nd shift radiology preliminary report. Dictated by: Chevy Kilpatrick M.D. on 09/29/2022 at 7:10 Approved by: Chevy Kilpatrick M.D. on 09/29/2022 at 7:11
--- NOTE | 2022-09-29 05:39 | ED.NAVMDI ---
HPI - Nausea/Vomiting/Diarrhea <Des Zapata MD - Last Filed: 10/01/22 07:08> General Chief complaint: Nausea/Vomiting/Diarrhea Stated complaint: NVD Time Seen by Provider: 09/29/22 05:32 Source: patient and EMS Mode of arrival: EMS History of Present Illness HPI Narrative: at bedside. Patient brought in by ambulance from home for 1 week of intractable nausea vomiting. No diarrhea. Has had cough congestion as well. states he has been sick as well but no vomiting. They have been both sick for the past 1 week but he is getting better. Patient unable to eat or drink. Has history of kidney failure history of diabetes. Denies any chest pain. No diarrhea. No urinary complaints. Related Data Home Medications Medication Instructions Recorded Confirmed Diphenhydramine-Lidocaine Viscous 15 ml PO QID PRN Mouth Pain 04/16/18 Maalox Mouthwash One Touchverio In Vitro Strip 04/16/18 04/16/18 acebutolol 400 mg capsule 400 mg PO BID 04/16/18 04/16/18 albuterol sulfate 90 mcg/actuation 2 puff inhalation Q4-6H PRN 04/16/18 04/16/18 aerosol inhaler (Ventolin HFA) Bronchodilation amlodipine 5 mg tablet 5 mg PO DAILY 04/16/18 04/16/18 fenofibrate nanocrystallized 48 mg 48 mg PO DAILY 04/16/18 04/16/18 tablet (Tricor) fluticasone 250 mcg-salmeterol 50 1 inh inhalation BID 04/16/18 04/16/18 mcg/dose blistr powdr for inhalation (Advair Diskus) furosemide 20 mg tablet 20 mg PO Q OTHER DAY 04/16/18 04/16/18 gabapentin 300 mg capsule 300 mg PO TID 04/16/18 04/16/18 inhalational spacing device (E-Z 04/16/18 04/16/18 Spacer) insulin NPH isoph U-100 human 100 45 unit SUBCUT QPM 04/16/18 04/16/18 unit/mL subcutaneous suspension (Novolin N NPH U-100 Insulin isophane) insulin aspart U-100 100 unit/mL 4 - 10 unit SUBCUT QPM 04/16/18 04/16/18 (3 mL) subcutaneous pen (Novolog FlexPen U-100 Insulin aspart) insulin detemir U-100 100 unit/mL 36 unit SUBCUT QPM 04/16/18 04/16/18 (3 mL) subcutaneous pen (Levemir FlexTouch U-100 Insulin) insulin syringe-needle U-100 0.3 04/16/18 04/16/18 mL 29 gauge x 1/2 (BD Insulin Syringe) levothyroxine 75 mcg tablet 75 mcg PO DAILY 04/16/18 04/16/18 (Synthroid) nortriptyline 25 mg capsule 25 mg PO BID 04/16/18 04/16/18 omega 7-osc-dpt-fish oil 1,000 mg 1 cap PO TID 04/16/18 04/16/18 (120 mg-180 mg) capsule (Fish Oil) omeprazole 20 mg tablet,delayed 20 mg PO BID 04/16/18 04/16/18 release pen needle, diabetic 31 gauge x 04/16/18 04/16/18/16 (Unifine Pentips) rosuvastatin 40 mg tablet (Crestor) 40 mg PO DAILY 04/16/18 04/16/18 spironolactone 25 1 tab PO DAILY 04/16/18 04/16/18 mg-hydrochlorothiazide 25 mg tablet Previous Rx's Medication Instructions Recorded azithromycin 250 mg tablet See Rx Instructions PO .COMPLEX #6 09/29/22 tabs hydrocodone 5 mg-acetaminophen 325 1 tab PO Q6H PRN pain #10 tabs 09/29/22 mg tablet ondansetron 4 mg disintegrating 4 mg PO Q8H PRN nausea and 09/29/22 tablet vomiting #10 tabs Allergies Allergy/AdvReac Type Severity Reaction Status Date / Time Penicillins Allergy Severe Difficulty Verified 04/14/18 16:12 Breathing Review of Systems <Des Zapata MD - Last Filed: 10/01/22 07:08> Review of Systems Narrative: GENERAL: negative chills, positive fatigue, malaise, negative fever, sweats. HEENT: negative sinus pain, ear pain, sore throat RESPIRATORY: negative dyspnea, positive cough CARDIOVASCULAR: negative chest pain, palpitations GASTROINTESTINAL: Positive nausea, vomiting, abdominal pain : negative dysuria, frequency, hematuria MUSCULOSKELETAL: negative muscle or bony pain SKIN: negative rash, skin lesions NEUROLOGIC: negative weakness, numbness ROS Unobtainable: All systems reviewed & are unremarkable except as noted in HPI and below Patient History <Des Zapata MD - Last Filed: 10/01/22 07:08> Social History Smoking Status: Former smoker alcohol intake: current substance use type: does not use Smoking Status: Former smoker alcohol intake frequency: a few times a week Substance Use Type: does not use Exam <Des Zapata MD - Last Filed: 10/01/22 07:08> Narrative Exam Narrative: GENERAL: in no distress, not toxic not dyspneic HEAD: Normocephalic. EYES: Pupils equal round ENT: Mucous membranes moist. NECK: Trachea midline. CARDIOVASCULAR: Regular rate and rhythm without murmurs RESPIRATORY: Clear to auscultation. Breath sounds equal bilaterally. No wheezes, rales, or rhonchi. GASTROINTESTINAL: Abdomen soft, mild diffuse tenderness but no peritoneal signs bowel sounds are present. No pain out of proportion to exam EXTREMITIES: No gross deformities. NEURO: Patient is awake alert and oriented herself and event. SKIN: Warm and dry PSYCH: Not anxious, is cooperative Initial Vital Signs Initial Vital Signs: Vital Signs Pulse Rate 105 H 09/29/22 05:29 Respiratory Rate 17 09/29/22 05:29 Pulse Oximetry 97 09/29/22 05:29 <Suzi Cazares DO - Last Filed: 09/29/22 18:41> Initial Vital Signs Initial Vital Signs: Vital Signs Pulse Rate 105 H 09/29/22 05:29 Respiratory Rate 17 09/29/22 05:29 Pulse Oximetry 97 09/29/22 05:29 Course <Des Zapata MD - Last Filed: 10/01/22 07:08> Orders Ordered: Discontinued Medications Hydromorphone HCl (Hydromorphone 0.5 Mg Inj) 0.5 mg IV NOW ONE Stop: 09/29/22 09:00 Last Admin: 09/29/22 09:27 Dose: 0.5 mg Documented By: SAUL Sodium Chloride (Normal Saline 0.9%) 1,000 mls @ 1,000 mls/hr IV BOLUS ONE Stop: 09/29/22 06:32 Last Infusion: 09/29/22 06:37 Dose: 0 mls/hr Documented By: Admin: 09/29/22 05:46 Dose: 1,000 mls/hr Documented By: WENDY Sodium Chloride (Normal Saline 0.9%) 1,000 mls @ 1,000 mls/hr IV BOLUS ONE Stop: 09/29/22 08:48 Last Infusion: 09/29/22 09:30 Dose: 0 mls/hr Documented By: Admin: 09/29/22 08:18 Dose: 1,000 mls/hr Documented By: SAUL Morphine Sulfate (Morphine 4 Mg/Ml Inj) 4 mg IV NOW ONE Stop: 09/29/22 05:58 Last Admin: 09/29/22 06:00 Dose: 4 mg Documented By: Ondansetron HCl (Ondansetron 4 Mg/2 Ml Inj) 4 mg IV NOW ONE Stop: 09/29/22 07:59 Last Admin: 09/29/22 08:18 Dose: 4 mg Documented By: SAUL Vital Signs Vital signs: Vital Signs - 8 hr 09/29/22 11:04 Pulse Rate 98 H Respiratory Rate 12 Blood Pressure 169/82 H Pulse Oximetry 96 Oxygen Delivery Method Room Air <Suzi Cazares DO - Last Filed: 09/29/22 18:41> Orders Ordered: Discontinued Medications Hydromorphone HCl (Hydromorphone 0.5 Mg Inj) 0.5 mg IV NOW ONE Stop: 09/29/22 09:00 Last Admin: 09/29/22 09:27 Dose: 0.5 mg Documented By: SAUL Sodium Chloride (Normal Saline 0.9%) 1,000 mls @ 1,000 mls/hr IV BOLUS ONE Stop: 09/29/22 06:32 Last Infusion: 09/29/22 06:37 Dose: 0 mls/hr Documented By: Admin: 09/29/22 05:46 Dose: 1,000 mls/hr Documented By: Sodium Chloride (Normal Saline 0.9%) 1,000 mls @ 1,000 mls/hr IV BOLUS ONE Stop: 09/29/22 08:48 Last Infusion: 09/29/22 09:30 Dose: 0 mls/hr Documented By: Admin: 09/29/22 08:18 Dose: 1,000 mls/hr Documented By: SAUL Morphine Sulfate (Morphine 4 Mg/Ml Inj) 4 mg IV NOW ONE Stop: 09/29/22 05:58 Last Admin: 09/29/22 06:00 Dose: 4 mg Documented By: Ondansetron HCl (Ondansetron 4 Mg/2 Ml Inj) 4 mg IV NOW ONE Stop: 09/29/22 07:59 Last Admin: 09/29/22 08:18 Dose: 4 mg Documented By: SAUL Vital Signs Vital signs: Vital Signs - 8 hr 09/29/22 11:04 Pulse Rate 98 H Respiratory Rate 12 Blood Pressure 169/82 H Pulse Oximetry 96 Oxygen Delivery Method Room Air MDM - Nausea/Vomiting/Diarrhea <Des Zapata MD - Last Filed: 10/01/22 07:08> Lab Data 09/29/22 05:32 09/29/22 08:59 Labs: Lab Results 09/29/22 09/29/22 09/29/22 Range/Units 05:32 05:48 06:35 WBC 9.0 (4.5-11.0) X10^3/uL RBC 3.93 L (4.0-5.2) X10^6/uL Hgb 13.4 (12.0-16.0) g/dL Hct 38.9 (36-46) % MCV 98.9 (80-100) fL MCH 34.2 H (26-34) PG MCHC 34.6 (30-36) % RDW 13.1 (11.6-14.8) % Plt Count 376 (150-400) X10^3/uL Neut % (Auto) 71.1 (50-75) % Lymph % (Auto) 19.9 L (25-40) % Riley % (Auto) 8.5 (3-14) % Eos % (Auto) 0.2 L (2-4) % Baso % (Auto) 0.3 (0-2) % Neut # (Auto) 6400 (1347-8508) /uL Lymph # (Auto) 1800 (8632-5769) /uL Riley # (Auto) 800 (0-900) /uL Eos # (Auto) 0 (0-450) /uL Baso # (Auto) 0 (0-100) /uL Sodium 133 L (137-145) mmol/L Potassium 3.0 L (3.4-5.1) mmol/L Chloride 92 L (98-107) mmol/L Carbon Dioxide 25 (22-32) mmol/L BUN 32 H (7-17) mg/dL Creatinine 2.76 H (0.52-1.04) mg/dL Estimated GFR 18 L (>60) mL/min BUN/Creatinine Ratio 11.6 (6-22) Glucose 272 H (80-110) mg/dL Calcium 8.6 (8.4-10.2) mg/dL Total Bilirubin 0.3 (0.2-1.3) mg/dL AST 38 H (14-36) IU/L ALT 24 (<35) IU/L Alkaline Phosphatase 183 H (38-126) U/L Total Protein 6.7 (6.3-8.2) g/dL Albumin 3.1 L (3.5-5.0) g/dL Globulin 3.6 (1.7-4.1) g/dL Albumin/Globulin Ratio 0.9 L (1.0-2.8) Lipase 111 (23-300) U/L Chlamy pneumoniae PCR Not detected (Not Detect) Adenovirus (PCR) Not detected (Not Detect) B. pertussis DNA (PCR) Not detected (Not Detecte) B.parapertussis DNA PCR Not detected (Not Detecte) Coronavirus OC43 (PCR) Not detected (Not Detect) Coronavirus HKU1 (PCR) Not detected (Not Detect) Coronavirus 229E (PCR) Not detected (Not Detect) SARS-CoV-2 (PCR) Detected H (Not Detecte) Coronavirus NL63 (PCR) Not detected (Not Detect) Human Metapneumovir PCR Not detected (Not Detect) Influenza Type A (PCR) Not detected (Not Detect) Influenza Type B (PCR) Not detected (Not Detect) M. pneumoniae (PCR) Not detected (Not Detect) Parainfluenza 1 (PCR) Not detected (Not Detect) Parainfluenza 2 (PCR) Not detected (Not Detect) Parainfluenza 3 (PCR) Not detected (Not Detect) Parainfluenza 4 (PCR) Not detected (Not Detect) RSV (PCR) Not detected (Not Detect) Entero/Rhino (PCR) Not detected (Not Detect) 09/29/22 Range/Units 08:59 WBC (4.5-11.0) X10^3/uL RBC (4.0-5.2) X10^6/uL Hgb (12.0-16.0) g/dL Hct (36-46) % MCV (80-100) fL MCH (26-34) PG MCHC (30-36) % RDW (11.6-14.8) % Plt Count (150-400) X10^3/uL Neut % (Auto) (50-75) % Lymph % (Auto) (25-40) % Riley % (Auto) (3-14) % Eos % (Auto) (2-4) % Baso % (Auto) (0-2) % Neut # (Auto) (4089-0739) /uL Lymph # (Auto) (3511-1780) /uL Riley # (Auto) (0-900) /uL Eos # (Auto) (0-450) /uL Baso # (Auto) (0-100) /uL Sodium 133 L (137-145) mmol/L Potassium 3.0 L (3.4-5.1) mmol/L Chloride 99 (98-107) mmol/L Carbon Dioxide 23 (22-32) mmol/L BUN 32 H (7-17) mg/dL Creatinine 2.44 H (0.52-1.04) mg/dL Estimated GFR 21 L (>60) mL/min BUN/Creatinine Ratio 13.1 (6-22) Glucose 235 H (80-110) mg/dL Calcium 7.5 L (8.4-10.2) mg/dL Total Bilirubin (0.2-1.3) mg/dL AST (14-36) IU/L ALT (<35) IU/L Alkaline Phosphatase (38-126) U/L Total Protein (6.3-8.2) g/dL Albumin (3.5-5.0) g/dL Globulin (1.7-4.1) g/dL Albumin/Globulin Ratio (1.0-2.8) Lipase (23-300) U/L Chlamy pneumoniae PCR (Not Detect) Adenovirus (PCR) (Not Detect) B. pertussis DNA (PCR) (Not Detecte) B.parapertussis DNA PCR (Not Detecte) Coronavirus OC43 (PCR) (Not Detect) Coronavirus HKU1 (PCR) (Not Detect) Coronavirus 229E (PCR) (Not Detect) SARS-CoV-2 (PCR) (Not Detecte) Coronavirus NL63 (PCR) (Not Detect) Human Metapneumovir PCR (Not Detect) Influenza Type A (PCR) (Not Detect) Influenza Type B (PCR) (Not Detect) M. pneumoniae (PCR) (Not Detect) Parainfluenza 1 (PCR) (Not Detect) Parainfluenza 2 (PCR) (Not Detect) Parainfluenza 3 (PCR) (Not Detect) Parainfluenza 4 (PCR) (Not Detect) RSV (PCR) (Not Detect) Entero/Rhino (PCR) (Not Detect) Imaging Data Chest x-ray: Radiologist's Impression: No acute findings MDM Narrative Medical decision making narrative: at bedside. Patient brought in by ambulance from home for 1 week of intractable nausea vomiting. No diarrhea. Has had cough congestion as well. states he has been sick as well but no vomiting. They have been both sick for the past 1 week but he is getting better. Patient unable to eat or drink. Has history of kidney failure history of diabetes. Denies any chest pain. No diarrhea. No urinary complaints. After history and exam CBC CMP urinalysis normal saline respiratory panel chest x-ray MDM CC: Cough cold congestion vomiting Complicating co-morbidities: History kidney disease/diabetes Data collected from: Patient and Medical records reviewed: No recent visit for this complaint Differential considered: Includes but not limited to viral gastroenteritis UTI dehydration pneumonia Exam documented above, pertinent findings include: Mild diffuse abdominal tenderness Lab Test results independently reviewed as above. Pertinent findings: Viral swab positive for COVID WBC 9.0 hemoglobin 13.4 Imaging studies independently reviewed: Chest x-ray no acute findings Consultations: Treatments: Normal saline Re-evaluations: Discussion: Diagnosis: September 29, 2022 at 7:00 a.m. Benny: Sign out to Dr Cazares respiratory panel is pending. Will need to reassess for improvement with nausea and vomiting <Suzi Cazares, - Last Filed: 09/29/22 18:41> Lab Data Labs: Lab Results 09/29/22 09/29/22 09/29/22 Range/Units 05:32 05:48 06:35 WBC 9.0 (4.5-11.0) X10^3/uL RBC 3.93 L (4.0-5.2) X10^6/uL Hgb 13.4 (12.0-16.0) g/dL Hct 38.9 (36-46) % MCV 98.9 (80-100) fL MCH 34.2 H (26-34) PG MCHC 34.6 (30-36) % RDW 13.1 (11.6-14.8) % Plt Count 376 (150-400) X10^3/uL Neut % (Auto) 71.1 (50-75) % Lymph % (Auto) 19.9 L (25-40) % Riley % (Auto) 8.5 (3-14) % Eos % (Auto) 0.2 L (2-4) % Baso % (Auto) 0.3 (0-2) % Neut # (Auto) 6400 (6547-8753) /uL Lymph # (Auto) 1800 (9652-3648) /uL Riley # (Auto) 800 (0-900) /uL Eos # (Auto) 0 (0-450) /uL Baso # (Auto) 0 (0-100) /uL Sodium 133 L (137-145) mmol/L Potassium 3.0 L (3.4-5.1) mmol/L Chloride 92 L (98-107) mmol/L Carbon Dioxide 25 (22-32) mmol/L BUN 32 H (7-17) mg/dL Creatinine 2.76 H (0.52-1.04) mg/dL Estimated GFR 18 L (>60) mL/min BUN/Creatinine Ratio 11.6 (6-22) Glucose 272 H (80-110) mg/dL Calcium 8.6 (8.4-10.2) mg/dL Total Bilirubin 0.3 (0.2-1.3) mg/dL AST 38 H (14-36) IU/L ALT 24 (<35) IU/L Alkaline Phosphatase 183 H (38-126) U/L Total Protein 6.7 (6.3-8.2) g/dL Albumin 3.1 L (3.5-5.0) g/dL Globulin 3.6 (1.7-4.1) g/dL Albumin/Globulin Ratio 0.9 L (1.0-2.8) Lipase 111 (23-300) U/L Chlamy pneumoniae PCR Not detected (Not Detect) Adenovirus (PCR) Not detected (Not Detect) B. pertussis DNA (PCR) Not detected (Not Detecte) B.parapertussis DNA PCR Not detected (Not Detecte) Coronavirus OC43 (PCR) Not detected (Not Detect) Coronavirus HKU1 (PCR) Not detected (Not Detect) Coronavirus 229E (PCR) Not detected (Not Detect) SARS-CoV-2 (PCR) Detected H (Not Detecte) Coronavirus NL63 (PCR) Not detected (Not Detect) Human Metapneumovir PCR Not detected (Not Detect) Influenza Type A (PCR) Not detected (Not Detect) Influenza Type B (PCR) Not detected (Not Detect) M. pneumoniae (PCR) Not detected (Not Detect) Parainfluenza 1 (PCR) Not detected (Not Detect) Parainfluenza 2 (PCR) Not detected (Not Detect) Parainfluenza 3 (PCR) Not detected (Not Detect) Parainfluenza 4 (PCR) Not detected (Not Detect) RSV (PCR) Not detected (Not Detect) Entero/Rhino (PCR) Not detected (Not Detect) 09/29/22 Range/Units 08:59 WBC (4.5-11.0) X10^3/uL RBC (4.0-5.2) X10^6/uL Hgb (12.0-16.0) g/dL Hct (36-46) % MCV (80-100) fL MCH (26-34) PG MCHC (30-36) % RDW (11.6-14.8) % Plt Count (150-400) X10^3/uL Neut % (Auto) (50-75) % Lymph % (Auto) (25-40) % Riley % (Auto) (3-14) % Eos % (Auto) (2-4) % Baso % (Auto) (0-2) % Neut # (Auto) (0537-3663) /uL Lymph # (Auto) (9755-2396) /uL Riley # (Auto) (0-900) /uL Eos # (Auto) (0-450) /uL Baso # (Auto) (0-100) /uL Sodium 133 L (137-145) mmol/L Potassium 3.0 L (3.4-5.1) mmol/L Chloride 99 (98-107) mmol/L Carbon Dioxide 23 (22-32) mmol/L BUN 32 H (7-17) mg/dL Creatinine 2.44 H (0.52-1.04) mg/dL Estimated GFR 21 L (>60) mL/min BUN/Creatinine Ratio 13.1 (6-22) Glucose 235 H (80-110) mg/dL Calcium 7.5 L (8.4-10.2) mg/dL Total Bilirubin (0.2-1.3) mg/dL AST (14-36) IU/L ALT (<35) IU/L Alkaline Phosphatase (38-126) U/L Total Protein (6.3-8.2) g/dL Albumin (3.5-5.0) g/dL Globulin (1.7-4.1) g/dL Albumin/Globulin Ratio (1.0-2.8) Lipase (23-300) U/L Chlamy pneumoniae PCR (Not Detect) Adenovirus (PCR) (Not Detect) B. pertussis DNA (PCR) (Not Detecte) B.parapertussis DNA PCR (Not Detecte) Coronavirus OC43 (PCR) (Not Detect) Coronavirus HKU1 (PCR) (Not Detect) Coronavirus 229E (PCR) (Not Detect) SARS-CoV-2 (PCR) (Not Detecte) Coronavirus NL63 (PCR) (Not Detect) Human Metapneumovir PCR (Not Detect) Influenza Type A (PCR) (Not Detect) Influenza Type B (PCR) (Not Detect) M. pneumoniae (PCR) (Not Detect) Parainfluenza 1 (PCR) (Not Detect) Parainfluenza 2 (PCR) (Not Detect) Parainfluenza 3 (PCR) (Not Detect) Parainfluenza 4 (PCR) (Not Detect) RSV (PCR) (Not Detect) Entero/Rhino (PCR) (Not Detect) MDM Narrative Medical decision making narrative: at bedside. Patient brought in by ambulance from home for 1 week of intractable nausea vomiting. No diarrhea. Has had cough congestion as well. states he has been sick as well but no vomiting. They have been both sick for the past 1 week but he is getting better. Patient unable to eat or drink. Has history of kidney failure history of diabetes. Denies any chest pain. No diarrhea. No urinary complaints. After history and exam CBC CMP urinalysis normal saline respiratory panel chest x-ray [facility] CC: Cough cold congestion vomiting Complicating co-morbidities: History kidney disease/diabetes Data collected from: Patient and Medical records reviewed: No recent visit for this complaint Differential considered: Includes but not limited to viral gastroenteritis UTI dehydration pneumonia Exam documented above, pertinent findings include: Mild diffuse abdominal tenderness Lab Test results independently reviewed as above. Pertinent findings: Viral swab positive for COVID WBC 9.0 hemoglobin 13.4 Imaging studies independently reviewed: Chest x-ray no acute findings Consultations: Treatments: Normal saline Re-evaluations: Discussion: Diagnosis: September 29, 2022 at 7:00 a.m. Benny: Sign out to Dr Cazares respiratory panel is pending. Will need to reassess for improvement with nausea and vomiting Debora: Patient signed out to me by Dr. Zapata. I have seen evaluated patient myself. She is had nausea vomiting ongoing for last 7-8 days she has a history of chronic kidney disease reports that baseline, assuming that is GFR. Today GFR is 18 with a creatinine of 2.76. She received 1 L of IV fluids mildly hypokalemic 3.0 which has been reports a been trying to get her potassium up for like year probably chronically low. She is positive for COVID but not hypoxic. Now she is asking and tolerating fluids. She also complains of some swelling of her right upper lip and nasal area it is non erythematous she reports that she has chronically poor dentition. She typically gets azithromycin for infection since she has anaphylaxis reaction to penicillin. Shortage on clindamycin will put her on a Z-Shay. Labs improved with 2 L of IV fluids and she is tolerating orals seems appropriate for discharge home Discharge Plan Departure Patient Disposition: Home Clinical Impression: COVID-19, Dental infection, Acute dehydration, Acute hypokalemia Instructions: DI for Dehydration -- Adult Activity Restrictions/Additional Instructions: *You have been diagnosed with dehydration, COVID-19, low potassium *What to do: Increase fluids as tolerated recommend Gatorade or Gatorade like product. 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 You have been prescribed narcotic medications, it does have acetaminophen/Tylenol/paracetamol in it, DO NOT TAKE MORE THAN 4,00mg in 24 hours of Tylenol. TRAMADOL DOES NOT CONTAIN TYLENOL 2. Please understand that we cannot provide further refills of narcotics, benzodiazepines or controlled substances through the ED and her pain management will need to be through your provider. 3. While on these medications you cannot drive or operate heavy machinery. 4. You cannot sign legal documents or perform any duties such as this. 5. As long as you're taking opiate pain medications he should also be taking a stool softener such as Colace, Dulcolax, MiraLAX or prune juice, to help avoid constipation. Prescriptions: New ondansetron 4 mg tablet,disintegrating 4 mg PO Q8H PRN (Reason: nausea and vomiting) Qty: 10 0RF azithromycin 250 mg tablet See Rx Instructions PO .COMPLEX Qty: 6 0RF Rx Instructions: For 250 mg dose pack: take 500 mg today (day 1), then 250 mg for 4 days (days 2-5) hydrocodone-acetaminophen 5-325 mg tablet 1 tab PO Q6H PRN (Reason: pain) Qty: 10 0RF No Action spironolacton-hydrochlorothiaz 25-25 mg Tablet 1 tab PO DAILY Patient Comments: Take by mouth for 7 days Diphenhydramine-Lidocaine Viscous Maalox Mouthwash 15 ml PO QID PRN (Reason: Mouth Pain) insulin NPH isoph U-100 human [Novolin N NPH U-100 Insulin] 100 unit/mL Suspension 45 unit SUBCUT QPM insulin aspart U-100 [Novolog FlexPen U-100 Insulin] 100 unit/mL Insulin Pen 4 - 10 unit SUBCUT QPM insulin detemir U-100 [Levemir FlexTouch U100 Insulin] 100 unit/mL (3 mL) Insulin Pen 36 unit SUBCUT QPM amlodipine 5 mg Tablet 5 mg PO DAILY nortriptyline 25 mg Capsule 25 mg PO BID (DME) insulin syringe-needle U-100 [BD Insulin Syringe] 0.3 mL 29 gauge x 1/2 Syringe gabapentin 300 mg Capsule 300 mg PO TID fluticasone propion-salmeterol [Advair Diskus] 250-50 mcg/dose Blister With Device 1 inh INHALATION BID acebutolol 400 mg Capsule 400 mg PO BID levothyroxine [Synthroid] 75 mcg Tablet 75 mcg PO DAILY furosemide 20 mg Tablet 20 mg PO Q OTHER DAY albuterol sulfate [Ventolin HFA] 90 mcg/actuation Hfa Aerosol Inhaler 2 puff INHALATION Q4-6H PRN (Reason: Bronchodilation) rosuvastatin [Crestor] 40 mg Tablet 40 mg PO DAILY fenofibrate nanocrystallized [Tricor] 48 mg Tablet 48 mg PO DAILY omeprazole 20 mg Tablet,Delayed Release (Dr/Ec) 20 mg PO BID (DME) pen needle, diabetic [Unifine Pentips] 31 gauge x 5/16 Needle (DME) inhalational spacing device [E-Z Spacer] Spacer omega [id number]-[id number]-[id number]-fish oil [Fish Oil] 1,000 mg (120 mg-180 mg) Capsule 1 cap PO TID (DME) One Touchverio In Vitro Strip strip Stand Alone Forms: Patient Portal/API
[2022-09-29 05:40] LABS: Add Manual Diff / Slide Review NO; Basophils Absolute Auto 0 /uL (0-100); Basophils Percent Auto 0.3 % (0-2); Eosinophils Absolute Auto 0 /uL (0-450); Eosinophils Percent Auto 0.2 % (2-4); Hematocrit 38.9 % (36-46); Hemoglobin 13.4 g/dL (12.0-16.0); Lymphocytes Absolute Auto 1800 /uL (1100-4500); Lymphocytes Percent Auto 19.9 % (25-40); Mean Corpuscular HGB Conc 34.6 % (30-36); Mean Corpuscular Hemoglobin 34.2 PG (26-34); Mean Corpuscular Volume 98.9 fL (80-100); Monocytes Absolute Auto 800 /uL (0-900); Monocytes Percent Auto 8.5 % (3-14); Neutrophils Absolute Auto 6400 /uL (1500-7000); Neutrophils Percent Auto 71.1 % (50-75); Platelet Count 376 X10^3/uL (150-400); Red Blood Cell Count 3.93 X10^6/uL (4.0-5.2); Red Cell Distribution Width 13.1 % (11.6-14.8)
[2022-09-29] MEDS: SODIUM CHLORIDE 0.9% 1,000 ML 1000 ML IV ×2 (05:46→08:18)
[2022-09-29] MEDS: MORPHINE 4 MG/ML INJ IV (06:00)
[2022-09-29 06:44] LABS: Adenovirus Not Detected (Not Detect); B. parapertussis Not Detected (Not Detecte); Bordetella pertussis Not Detected (Not Detecte); Chlamydophila pneumoniae Not Detected (Not Detect); Coronavirus 229E Not Detected (Not Detect); Coronavirus HKU1 Not Detected (Not Detect); Coronavirus NL 63 Not Detected (Not Detect); Coronavirus OC43 Not Detected (Not Detect); Human Metapneumovirus Not Detected (Not Detect); Human Rhinovirus/Enterovirus Not Detected (Not Detect); Influenza A Not Detected (Not Detect); Influenza B Not Detected (Not Detect); Mycoplasma pneumoniae Not Detected (Not Detect); Parainfluenza Virus 1 Not Detected (Not Detect); Parainfluenza Virus 2 Not Detected (Not Detect); Parainfluenza Virus 3 Not Detected (Not Detect); Parainfluenza Virus 4 Not Detected (Not Detect); Respiratory Syncytial Virus Not Detected (Not Detect)
[2022-09-29 06:45] LABS: SARS- CoV-2 Detected (Not Detecte)
[2022-09-29 06:54] LABS: Alanine Aminotransferase 24 IU/L (<35); Albumin 3.1 g/dL (3.5-5.0); Albumin Globulin Ratio 0.9 (1.0-2.8); Alkaline Phosphatase 183 U/L (38-126); Aspartate Aminotransferase 38 IU/L (14-36); BUN Creatinine Ratio 11.6 (6-22); Bilirubin Total 0.3 mg/dL (0.2-1.3); Blood Urea Nitrogen 32 mg/dL (7-17); Calcium 8.6 mg/dL (8.4-10.2); Carbon Dioxide 25 mmol/L (22-32); Chloride 92 mmol/L (98-107); Estimated Glomerular Filt Rate 18 mL/min (>60); Globulin 3.6 g/dL (1.7-4.1); Glucose 272 mg/dL (80-110); HEMOLYSIS < 15 (0-50); Lipase 111 U/L (23-300); Sodium 133 mmol/L (137-145); Total Protein 6.7 g/dL (6.3-8.2)
[2022-09-29] MEDS: ONDANSETRON 4 MG/2 ML INJ IV (08:18)
[2022-09-29] MEDS: HYDROMORPHONE 0.5 MG INJ IV (09:27)
[2022-09-29 10:20] LABS: BUN Creatinine Ratio 13.1 (6-22); Blood Urea Nitrogen 32 mg/dL (7-17); Calcium 7.5 mg/dL (8.4-10.2); Carbon Dioxide 23 mmol/L (22-32); Chloride 99 mmol/L (98-107); Estimated Glomerular Filt Rate 21 mL/min (>60); Glucose 235 mg/dL (80-110); HEMOLYSIS < 15 (0-50); Sodium 133 mmol/L (137-145)
== END 2022-09-29 11:08 | disposition home or self-care (01) ==
PROVIDERS: Emergency Medicine; Emergency Provider Emergency Medicine
DX: U07.1 COVID-19 (principal); E87.6 Hypokalemia; E86.0 Dehydration; K04.7 Periapical abscess without sinus; Z79.899 Other long term (current) drug therapy
CPT/HCPCS: 36415; 71045; 80048; 80053; 83690; 85025; 87633; 96361; 96374; 96375; 99284; J1170; J2270; J2405

== ENCOUNTER 2023-03-09 19:14 | Inpatient (IN) | payer OTHER, MEDICARE, SELFPAY ==
[2023-03-09] VITALS (13 sets, daily range): BP systolic 133–155; BP diastolic 65–78; PULSE 76–85; RESP 10–20; TEMP 36.9; O2SAT 91–98; BMI 24.5
--- NOTE | 2023-03-09 19:25 | PC.NURSE ---
EMS reports mika has lost significant amount of weight over last couple months. Has been altering her medications without guidance from PCP.
[2023-03-09 19:38] LABS: Add Manual Diff / Slide Review NO; Alanine Aminotransferase 15 IU/L (<35); Albumin 3.3 g/dL (3.5-5.0); Albumin Globulin Ratio 0.9 (1.0-2.8); Alkaline Phosphatase 183 U/L (38-126); Aspartate Aminotransferase 37 IU/L (14-36); BUN Creatinine Ratio 11.8 (6-22); Basophils Absolute Auto 100 /uL (0-100); Basophils Percent Auto 1.3 % (0-2); Bilirubin Total 0.6 mg/dL (0.2-1.3); Blood Urea Nitrogen 20 mg/dL (7-17); Calcium 8.3 mg/dL (8.4-10.2); Carbon Dioxide 32 mmol/L (22-32); Chloride 84 mmol/L (98-107); Eosinophils Absolute Auto 100 /uL (0-450); Eosinophils Percent Auto 1.1 % (2-4); Estimated Glomerular Filt Rate 32 mL/min (>60); Globulin 3.8 g/dL (1.7-4.1); Glucose 291 mg/dL (80-110); HEMOLYSIS 40 (0-50); Hematocrit 34.7 % (36-46); Hemoglobin 11.7 g/dL (12.0-16.0); Lipase 34 U/L (23-300); Lymphocytes Absolute Auto 1600 /uL (1100-4500); Lymphocytes Percent Auto 29.2 % (25-40); Mean Corpuscular HGB Conc 33.8 % (30-36); Mean Corpuscular Hemoglobin 31.6 PG (26-34); Mean Corpuscular Volume 93.6 fL (80-100); Monocytes Absolute Auto 700 /uL (0-900); Monocytes Percent Auto 11.8 % (3-14); Neutrophils Absolute Auto 3200 /uL (1500-7000); Neutrophils Percent Auto 56.6 % (50-75); Platelet Count 419 X10^3/uL (150-400); Red Blood Cell Count 3.71 X10^6/uL (4.0-5.2); Red Cell Distribution Width 16.6 % (11.6-14.8); Sodium 129 mmol/L (137-145); Total Protein 7.1 g/dL (6.3-8.2); White Blood Cell Count 5.6 X10^3/uL (4.5-11.0)
[2023-03-09 19:42] LABS: Potassium 2.4 mmol/L (3.4-5.1)
--- NOTE | 2023-03-09 19:47 | ED_ITS ---
HPI - General Adult General Chief complaint: Abdominal Pain Stated complaint: AMS Time Seen by Provider: 03/09/23 19:46 Source: EMS Mode of arrival: EMS History of Present Illness HPI narrative: 73-year-old woman with a history of asthma, hypertension, diabetes, hypothyroidism, hyperlipidemia , psoriasis with psoriatic arthritis on Remicade (she did miss her infusion last week) who presents with 3 weeks of progressive ?not doing well?. Her describes an episode on February 19 where she was feeling weak slid forward and had her sternum land against the edge of a chair which apparently caused quite a bit of pain and is back tender insulation board. There was no bruising appreciated to that area. A week later he noticed increasing global weakness, nausea, vomiting, diarrhea. She is had intermittent fevers, intermittent cough. No dysuria no skin changes beyond her usual psoriasis to suggest infection. No significant headaches and aside from global weakness no like localizing neurologic findings Related Data Home Medications Medication Instructions Recorded Confirmed Diphenhydramine-Lidocaine Viscous 15 ml PO QID PRN Mouth Pain 04/16/18 Maalox Mouthwash One Touchverio In Vitro Strip 04/16/18 04/16/18 acebutolol 400 mg capsule 400 mg PO BID 04/16/18 04/16/18 albuterol sulfate 90 mcg/actuation 2 puff inhalation Q4-6H PRN 04/16/18 04/16/18 aerosol inhaler (Ventolin HFA) Bronchodilation amlodipine 5 mg tablet 5 mg PO DAILY 04/16/18 04/16/18 fenofibrate nanocrystallized 48 mg 48 mg PO DAILY 04/16/18 04/16/18 tablet (Tricor) fluticasone 250 mcg-salmeterol 50 1 inh inhalation BID 04/16/18 04/16/18 mcg/dose blistr powdr for inhalation (Advair Diskus) furosemide 20 mg tablet 20 mg PO Q OTHER DAY 04/16/18 04/16/18 gabapentin 300 mg capsule 300 mg PO TID 04/16/18 04/16/18 inhalational spacing device (E-Z 04/16/18 04/16/18 Spacer) insulin NPH isoph U-100 human 100 45 unit SUBCUT QPM 04/16/18 04/16/18 unit/mL subcutaneous suspension (Novolin N NPH U-100 Insulin isophane) insulin aspart U-100 100 unit/mL 4 - 10 unit SUBCUT QPM 04/16/18 04/16/18 (3 mL) subcutaneous pen (Novolog FlexPen U-100 Insulin aspart) insulin detemir U-100 100 unit/mL 36 unit SUBCUT QPM 04/16/18 04/16/18 (3 mL) subcutaneous pen (Levemir FlexTouch U-100 Insulin) insulin syringe-needle U-100 0.3 04/16/18 04/16/18 mL 29 gauge x 1/2 (BD Insulin Syringe) levothyroxine 75 mcg tablet 75 mcg PO DAILY 04/16/18 04/16/18 (Synthroid) nortriptyline 25 mg capsule 25 mg PO BID 04/16/18 04/16/18 omega 1-vjp-mts-fish oil 1,000 mg 1 cap PO TID 04/16/18 04/16/18 (120 mg-180 mg) capsule (Fish Oil) omeprazole 20 mg tablet,delayed 20 mg PO BID 04/16/18 04/16/18 release pen needle, diabetic 31 gauge x 04/16/18 04/16/18 5/16 (Unifine Pentips) rosuvastatin 40 mg tablet (Crestor) 40 mg PO DAILY 04/16/18 04/16/18 spironolactone 25 1 tab PO DAILY 04/16/18 04/16/18 mg-hydrochlorothiazide 25 mg tablet Previous Rx's Medication Instructions Recorded hydrocodone 5 mg-acetaminophen 325 1 tab PO Q6H PRN pain #10 tabs 09/29/22 mg tablet ondansetron 4 mg disintegrating 4 mg PO Q8H PRN nausea and 09/29/22 tablet vomiting #10 tabs Allergies Allergy/AdvReac Type Severity Reaction Status Date / Time Penicillins Allergy Severe Difficulty Verified 03/09/23 19:25 Breathing Review of Systems Review of Systems Narrative: Pertinent positive and negative findings as per HPI Patient History Medical History Chronic hypokalemia Hyperlipidemia Hypertension Type 2 diabetes mellitus Psoriasis Psoriatic arthritis Chronic kidney disease Social History Smoking Status: Former smoker alcohol intake: current substance use type: does not use Smoking Status: Former smoker alcohol intake frequency: a few times a week Substance Use Type: does not use Exam Initial Vital Signs Initial Vital Signs: Vital Signs Temperature 98.5 F 03/09/23 19:20 Pulse Rate 85 03/09/23 19:20 Respiratory Rate 16 03/09/23 19:20 Blood Pressure 155/78 H 03/09/23 19:20 Pulse Oximetry 96 03/09/23 19:20 Oxygen Delivery Method Room Air 03/09/23 19:20 General: Fatigued appearing to the point that she is not participating in history but can answer direct questions. HEENT: Moist mucous membranes, normal sclera with reactive pupils, Neck: No JVD, supple Respiratory: Lungs are clear to auscultation, no wheezing no rales no rhonchi. Full and symmetrical air movement Chest: She does have some sternal tenderness to palpation mid sternum to the xiphoid process without obvious bruising or contusion Cardiac: Regular rate and rhythm no murmurs no bruits Abdomen: Soft, mild diffuse tenderness without rebound or guarding, no flank pain Skin: Warm and dry, no rashes, scattered psoriatic plaques Neurologic: Globally weak but otherwise Grossly neurologically intact with no obvious asymmetries or abnormalities. No complaints of headache and no nuchal rigidity Extremities: No trauma, well perfused Psych: Cooperative, alert and oriented Course Orders Ordered: ED Orders 03/09/23 19:25 Urine Culture Stat Urine Microscopic Stat 03/09/23 19:26 EKG-12 Lead Stat 03/09/23 19:29 Complete Blood Count AUTO DIFF Stat Comprehensive Metabolic Panel Stat Lipase Stat 03/09/23 19:32 Covid-19 + FLU A/B + RSV - PCR Stat Respiratory Panel (Film Array) Stat 03/09/23 20:30 XR chest 2V Stat 03/09/23 20:35 Free T4, Direct Thyroxine Stat Procalcitonin Stat TSH [Thyroid Stimulating Hormone] Stat Troponin & CK Cardiac Panel Stat 03/09/23 20:40 CT head/brain wo con Stat 03/09/23 22:40 BNP [NT-proBNP (BNP-Adult 18+)] Stat Trop I [Troponin I] Stat Hydromorphone HCl (Hydromorphone 0.5 Mg Inj) 0.5 mg IV Q15MIN PRN PRN Reason: Pain, Last Admin: 03/10/23 00:51 Dose: 0.5 mg Documented By: AMJudah Admin: 03/09/23 22:37 Dose: 0.5 mg Documented By: AMV Discontinued Medications Sodium Chloride (Normal Saline 0.9%) 1,000 mls @ 1,000 mls/hr IV BOLUS ONE Stop: 03/09/23 20:54 Last Infusion: 03/09/23 22:27 Dose: Infused Documented By: Infusion: 03/09/23 21:07 Dose: 1,000 mls/hr Documented By: Infusion: 03/09/23 20:43 Dose: 0 mls/hr Documented By: Admin: 03/09/23 20:07 Dose: 1,000 mls/hr Documented By: AMV POTASSIUM CHLORIDE IN WATER (Potassium Cl 10 Meq/100 Ml Adeola) 10 meq in 100 mls @ 100 mls/hr IV Q1H WERNER Stop: 03/09/23 23:59 Last Infusion: 03/10/23 00:49 Dose: Infused Documented By: Admin: 03/09/23 23:45 Dose: 100 mls/hr Documented By: Infusion: 03/09/23 23:34 Dose: Infused Documented By: Admin: 03/09/23 22:34 Dose: 100 mls/hr Documented By: Infusion: 03/09/23 22:29 Dose: Infused Documented By: Admin: 03/09/23 21:29 Dose: 100 mls/hr Documented By: Infusion: 03/09/23 21:29 Dose: Infused Documented By: Infusion: 03/09/23 21:06 Dose: 100 mls/hr Documented By: Infusion: 03/09/23 20:43 Dose: 0 mls/hr Documented By: Admin: 03/09/23 20:07 Dose: 100 mls/hr Documented By: AMV Ondansetron HCl (Ondansetron 4 Mg Odt) 4 mg PO NOW PRN PRN Reason: Nausea And Vomiting Ondansetron HCl (Ondansetron 4 Mg/2 Ml Inj) 4 mg IV NOW PRN PRN Reason: Nausea And Vomiting Vital Signs Vital signs: Vital Signs - 8 hr 03/09/23 19:20 03/09/23 19:20 03/09/23 19:26 Temperature 98.5 F Pulse Rate 85 84 84 Respiratory Rate 16 13 15 Blood Pressure 155/78 H Pulse Oximetry 96 94 94 Oxygen Delivery Method Room Air 03/09/23 19:26 03/09/23 19:30 03/09/23 19:30 Temperature Pulse Rate 80 Respiratory Rate 20 Blood Pressure 149/72 H 137/68 Pulse Oximetry 94 Oxygen Delivery Method 03/09/23 20:00 03/09/23 20:00 03/09/23 20:30 Temperature Pulse Rate 77 76 Respiratory Rate 12 16 Blood Pressure 149/70 H Pulse Oximetry 94 Oxygen Delivery Method 03/09/23 20:30 03/09/23 21:00 03/09/23 21:06 Temperature Pulse Rate 76 76 Respiratory Rate Blood Pressure 148/71 H Pulse Oximetry 96 94 Oxygen Delivery Method 03/09/23 21:06 03/09/23 21:30 03/09/23 21:30 Temperature Pulse Rate 77 Respiratory Rate Blood Pressure 141/70 H 139/65 Pulse Oximetry 94 Oxygen Delivery Method Medical Decision Making Lab Data 03/09/23 19:29 03/09/23 19:29 Labs: Lab Results 03/09/23 03/09/23 03/09/23 Range/Units 19:25 19:29 19:32 WBC 5.6 (4.5-11.0) X10^3/uL RBC 3.71 L (4.0-5.2) X10^6/uL Hgb 11.7 L (12.0-16.0) g/dL Hct 34.7 L (36-46) % MCV 93.6 (80-100) fL MCH 31.6 (26-34) PG MCHC 33.8 (30-36) % RDW 16.6 H (11.6-14.8) % Plt Count 419 H (150-400) X10^3/uL Neut % (Auto) 56.6 (50-75) % Lymph % (Auto) 29.2 (25-40) % [place] % (Auto) 11.8 (3-14) % Eos % (Auto) 1.1 L (2-4) % Baso % (Auto) 1.3 (0-2) % Neut # (Auto) 3200 (0923-4056) /uL Lymph # (Auto) 1600 (2703-4436) /uL [place] # (Auto) 700 (0-900) /uL Eos # (Auto) 100 (0-450) /uL Baso # (Auto) 100 (0-100) /uL Sodium 129 L (137-145) mmol/L Potassium 2.4 L* (3.4-5.1) mmol/L Chloride 84 L (98-107) mmol/L Carbon Dioxide 32 (22-32) mmol/L BUN 20 H (7-17) mg/dL Creatinine 1.69 H (0.52-1.04) mg/dL Estimated GFR 32 L (>60) mL/min BUN/Creatinine Ratio 11.8 (6-22) Glucose 291 H (80-110) mg/dL Calcium 8.3 L (8.4-10.2) mg/dL Total Bilirubin 0.6 (0.2-1.3) mg/dL AST 37 H (14-36) IU/L ALT 15 (<35) IU/L Alkaline Phosphatase 183 H (38-126) U/L Total Creatine Kinase (30-135) U/L Troponin I (0.01-0.034) ng/mL NT-Pro-B Natriuret Pep (<125) pg/mL Total Protein 7.1 (6.3-8.2) g/dL Albumin 3.3 L (3.5-5.0) g/dL Globulin 3.8 (1.7-4.1) g/dL Albumin/Globulin Ratio 0.9 L (1.0-2.8) Lipase 34 (23-300) U/L Procalcitonin (<0.5) ng/mL TSH (0.47-4.68) uIU/mL Free T4 (0.78-2.19) ng/dL Urine RBC 1-5/hpf (0-5/HPF) Urine WBC 1-5/hpf (0-5/HPF) Ur Squamous Epith Cells 1-5 /hpf (0-5/HPF) Urine Bacteria Few (2-10) H (None) Hyaline Casts 1-5/lpf (None) Ur Culture Indicated? Cult not indicated Chlamy pneumoniae PCR Not detected (Not Detect) Adenovirus (PCR) Not detected (Not Detect) B.parapertussis DNA PCR Not detected (Not Detecte) Coronavirus OC43 (PCR) Not detected (Not Detect) Coronavirus HKU1 (PCR) Not detected (Not Detect) Coronavirus 229E (PCR) Not detected (Not Detect) SARS-CoV-2 (PCR) Negative (Negative) Coronavirus NL63 (PCR) (Not Detect) Human Metapneumovir PCR (Not Detect) Influenza A (RT-PCR) (NEGATIVE) Influenza Type A (PCR) (Not Detect) Influenza B (RT-PCR) (NEGATIVE) Influenza Type B (PCR) (Not Detect) M. pneumoniae (PCR) (Not Detect) Parainfluenza 1 (PCR) (Not Detect) Parainfluenza 2 (PCR) (Not Detect) Parainfluenza 3 (PCR) (Not Detect) Parainfluenza 4 (PCR) (Not Detect) RSV (PCR) (Negative) Entero/Rhino (PCR) (Not Detect) 03/09/23 03/09/23 03/09/23 Range/Units 19:32 19:32 20:35 WBC (4.5-11.0) X10^3/uL RBC (4.0-5.2) X10^6/uL Hgb (12.0-16.0) g/dL Hct (36-46) % MCV (80-100) fL MCH (26-34) PG MCHC (30-36) % RDW (11.6-14.8) % Plt Count (150-400) X10^3/uL Neut % (Auto) (50-75) % Lymph % (Auto) (25-40) % [place] % (Auto) (3-14) % Eos % (Auto) (2-4) % Baso % (Auto) (0-2) % Neut # (Auto) (2204-5567) /uL Lymph # (Auto) (3282-0308) /uL [place] # (Auto) (0-900) /uL Eos # (Auto) (0-450) /uL Baso # (Auto) (0-100) /uL Sodium (137-145) mmol/L Potassium (3.4-5.1) mmol/L Chloride (98-107) mmol/L Carbon Dioxide (22-32) mmol/L BUN (7-17) mg/dL Creatinine (0.52-1.04) mg/dL Estimated GFR (>60) mL/min BUN/Creatinine Ratio (6-22) Glucose (80-110) mg/dL Calcium (8.4-10.2) mg/dL Total Bilirubin (0.2-1.3) mg/dL AST (14-36) IU/L ALT (<35) IU/L Alkaline Phosphatase (38-126) U/L Total Creatine Kinase 32 (30-135) U/L Troponin I 0.035 H (0.01-0.034) ng/mL NT-Pro-B Natriuret Pep (<125) pg/mL Total Protein (6.3-8.2) g/dL Albumin (3.5-5.0) g/dL Globulin (1.7-4.1) g/dL Albumin/Globulin Ratio (1.0-2.8) Lipase (23-300) U/L Procalcitonin 0.41 (<0.5) ng/mL TSH 13.2 H (0.47-4.68) uIU/mL Free T4 1.18 (0.78-2.19) ng/dL Urine RBC (0-5/HPF) Urine WBC (0-5/HPF) Ur Squamous Epith Cells (0-5/HPF) Urine Bacteria (None) Hyaline Casts (None) Ur Culture Indicated? Chlamy pneumoniae PCR (Not Detect) Adenovirus (PCR) (Not Detect) B.parapertussis DNA PCR (Not Detecte) Coronavirus OC43 (PCR) (Not Detect) Coronavirus HKU1 (PCR) (Not Detect) Coronavirus 229E (PCR) (Not Detect) SARS-CoV-2 (PCR) Not detected (Negative) Coronavirus NL63 (PCR) Not detected (Not Detect) Human Metapneumovir PCR Not detected (Not Detect) Influenza A (RT-PCR) Flu a negative (NEGATIVE) Influenza Type A (PCR) Not detected (Not Detect) Influenza B (RT-PCR) Flu b negative (NEGATIVE) Influenza Type B (PCR) Not detected (Not Detect) M. pneumoniae (PCR) Not detected (Not Detect) Parainfluenza 1 (PCR) Not detected (Not Detect) Parainfluenza 2 (PCR) Not detected (Not Detect) Parainfluenza 3 (PCR) Not detected (Not Detect) Parainfluenza 4 (PCR) Not detected (Not Detect) RSV (PCR) Negative Not detected (Negative) Entero/Rhino (PCR) Not detected (Not Detect) 03/09/23 Range/Units 22:40 WBC (4.5-11.0) X10^3/uL RBC (4.0-5.2) X10^6/uL Hgb (12.0-16.0) g/dL Hct (36-46) % MCV (80-100) fL MCH (26-34) PG MCHC (30-36) % RDW (11.6-14.8) % Plt Count (150-400) X10^3/uL Neut % (Auto) (50-75) % Lymph % (Auto) (25-40) % [place] % (Auto) (3-14) % Eos % (Auto) (2-4) % Baso % (Auto) (0-2) % Neut # (Auto) (0893-5300) /uL Lymph # (Auto) (4780-0671) /uL [place] # (Auto) (0-900) /uL Eos # (Auto) (0-450) /uL Baso # (Auto) (0-100) /uL Sodium (137-145) mmol/L Potassium (3.4-5.1) mmol/L Chloride (98-107) mmol/L Carbon Dioxide (22-32) mmol/L BUN (7-17) mg/dL Creatinine (0.52-1.04) mg/dL Estimated GFR (>60) mL/min BUN/Creatinine Ratio (6-22) Glucose (80-110) mg/dL Calcium (8.4-10.2) mg/dL Total Bilirubin (0.2-1.3) mg/dL AST (14-36) IU/L ALT (<35) IU/L Alkaline Phosphatase (38-126) U/L Total Creatine Kinase (30-135) U/L Troponin I 0.034 (0.01-0.034) ng/mL NT-Pro-B Natriuret Pep 1880 H (<125) pg/mL Total Protein (6.3-8.2) g/dL Albumin (3.5-5.0) g/dL Globulin (1.7-4.1) g/dL Albumin/Globulin Ratio (1.0-2.8) Lipase (23-300) U/L Procalcitonin (<0.5) ng/mL TSH (0.47-4.68) uIU/mL Free T4 (0.78-2.19) ng/dL Urine RBC (0-5/HPF) Urine WBC (0-5/HPF) Ur Squamous Epith Cells (0-5/HPF) Urine Bacteria (None) Hyaline Casts (None) Ur Culture Indicated? Chlamy pneumoniae PCR (Not Detect) Adenovirus (PCR) (Not Detect) B.parapertussis DNA PCR (Not Detecte) Coronavirus OC43 (PCR) (Not Detect) Coronavirus HKU1 (PCR) (Not Detect) Coronavirus 229E (PCR) (Not Detect) SARS-CoV-2 (PCR) (Negative) Coronavirus NL63 (PCR) (Not Detect) Human Metapneumovir PCR (Not Detect) Influenza A (RT-PCR) (NEGATIVE) Influenza Type A (PCR) (Not Detect) Influenza B (RT-PCR) (NEGATIVE) Influenza Type B (PCR) (Not Detect) M. pneumoniae (PCR) (Not Detect) Parainfluenza 1 (PCR) (Not Detect) Parainfluenza 2 (PCR) (Not Detect) Parainfluenza 3 (PCR) (Not Detect) Parainfluenza 4 (PCR) (Not Detect) RSV (PCR) (Negative) Entero/Rhino (PCR) (Not Detect) Urine Dip Bedside Urine Glucose 100 mg/dl Bedside Urine Bilirubin - Negative Bedside Urine Ketone - Negative Urine Specific [place] 1.015 Bedside Urine Occult Blood + Bedside Urine pH 7.0 Bedside Urine Protein +++ 300 Bedside Urine Urobilinogen - Negative Bedside Urine Nitrite - Negative Bedside Urine Leukocytes - Negative Esterase Point of care testing: Urine Dip Bedside Urine Glucose 100 mg/dl Bedside Urine Bilirubin - Negative Bedside Urine Ketone - Negative Urine Specific [place] 1.015 Bedside Urine Occult Blood + Bedside Urine pH 7.0 Bedside Urine Protein +++ 300 Bedside Urine Urobilinogen - Negative Bedside Urine Nitrite - Negative Bedside Urine Leukocytes - Negative Esterase MDM Narrative Medical decision making narrative: CC: Global weakness progressive over the last 3 weeks Complicating co-morbidities: Kidney disease, chronically low potassium, on Remicade for psoriatic arthritis and psoriasis, diabetes hypertension hyperlipidemia Data collected from: patient, Medical records reviewed: Oncology notes from 2019 indicate pancytopenia with global weakness. Remainder of notes available for review are ER visits Differential considered: Renal failure, significant electrolyte abnormality, sepsis, severe anemia, Exam documented above, pertinent findings include: Global weakness with otherwise nonlocalizing exam. Lab Test results independently reviewed as above. Pertinent findings: CBC shows white count at 5.6, H&H close to her baseline at 11.7 and 34.7 platelets slightly elevated at 419. Chemistries are notable for hyponatremia at 1:29 a.m., hypokalemia at 2.4. Creatinine better than her baseline at 1.69. Glucose is slightly elevated without significantly elevated anion gap. Alk-phos is slightly elevated at 183 which is similar to a number of months ago Lipase is unremarkable Urine shows few bacteria but no red cells or white cells Troponin is minimally elevated at 0.035 (upper limits of normal are 0.034) Procalcitonin is not elevated TSH is slightly elevated at 13.2 Respiratory panel is unremarkable today. Of note, she did test positive for COVID on September 29, 2022 Independently reviewed EKG sinus rhythm with a rate of 78. Intervals are notable for prolonged QTC at 554 milliseconds. She does have a left axis deviation. There are no acute ischemic changes Imaging studies independently reviewed: Chest x-ray shows no acute pulmonary abnormalities. No obvious sternal fractures, subcutaneous air or pneumothorax. No widened mediastinum. CT scan of the head done with concerns for possible seizure shows no significant abnormalities or intracranial bleed Consultations: Dr Meza, telemed hospitalist Treatments: IV potassium, normal saline Re-evaluations:845 on re-evaluation the mentions that she had some ?convulsing type activity today. He describes it as momentary only it does however look like she bit her tongue. She states that she had a similar episode previously was not started on any medications. Discussion: 73-year-old woman with increasing weakness to the point she is having difficulty moving. incidentally notes that she may have had brief seizure-like activity. It certainly does not sound like it lasted for more than seconds. CT scan of the head is unremarkable. There is no evidence of bacterial infection, sepsis or respiratory viral infection. No evidence of acute coronary syndrome. At this point I do not have a complete explanation for her symptoms beyond the significant electrolyte abnormalities. She does have a history of acute kidney injury and kidneys actually seemed to have improved at this point. We will recommend hospitalization for replacement of her potassium, we will continue to follow her sodium levels, may need to adjust her thyroid doses and will need further evaluation tomorrow. Patient requests pain medication for the contusion to her sternum after the fall about 2 weeks ago. We will try small dose of Dilaudid and see if this is effective. Discharge Plan Departure Patient Disposition: Admitted as Observation Clinical Impression: Acute hyponatremia, Acute hypokalemia, Weakness Contusion of sternum Qualifiers: Encounter type: initial encounter Qualified Code(s): S20.219A - Contusion of unspecified front wall of thorax, initial encounter Admit Date/Time: 03/10/23 01:18 Admit Provider: Kendrick Quintero
[2023-03-09 20:00] LABS: Bacteria Urine Few (2-10); Hyaline Casts Urine 1-5/LPF; RBC Urine 1-5/HPF (0-5/HPF); Squamous Epithelial Cell Urine 1-5 /HPF (0-5/HPF); WBC Urine 1-5/HPF (0-5/HPF)
[2023-03-09 20:01] LABS: Culture Indicated Urine Cult Not Indicated
[2023-03-09] MEDS: SODIUM CHLORIDE 0.9% 1,000 ML 1000 ML IV (20:07)
[2023-03-09] MEDS: POTASSIUM CHLORIDE IN WATER 10 MEQ/100 ML PIGGYBACK 100 MEQ IV ×4 (20:07→23:45)
[2023-03-09 20:13] LABS: Influenza A - CEPHEID Flu A NEGATIVE (NEGATIVE); Influenza B - CEPHEID Flu B NEGATIVE (NEGATIVE); Respiratory Syncytial Virus Negative (Negative)
--- NOTE | 2023-03-09 20:30 | DI.RAD.S_ITS ---
PROCEDURE: XR CHEST 2V INDICATIONS: weakness, fall 3 weeks ago TECHNIQUE: 2 views of the chest were acquired. COMPARISON: [facility], CR, XR CHEST 1V, 09/29/2022, 5:41. FINDINGS: Surgical changes and devices: None. Lungs and pleura: Lungs are clear. No pleural effusions or pneumothorax. Mediastinum: Mediastinal contours are normal. Heart size is enlarged. Bones and chest wall: No suspicious bony abnormalities. Soft tissues appear unremarkable. IMPRESSION: No acute pulmonary process. Dictated by: Inga Peres M.D. on 03/09/2023 at 21:14 Approved by: Inga Peres M.D. on 03/09/2023 at 21:14
[2023-03-09 20:35] LABS: COVID-19 CEPHEID 4-PLEX PCR Negative (Negative)
--- NOTE | 2023-03-09 20:40 | DI.CT.S_ITS ---
PROCEDURE: CT HEAD/BRAIN WO CON INDICATIONS: ? seizure TECHNIQUE: Noncontrast 4.5 mm thick angled axial sections acquired from the foramen magnum to the vertex, with coronal and sagittal reformats. For radiation dose reduction, the following was used: automated exposure control, adjustment of mA and/or kV according to patient size. COMPARISON: None. FINDINGS: Image quality: Excellent. CSF spaces: Basal cisterns are patent. No extra-axial fluid collections. The ventricles are symmetric in size and shape. Brain: No intracranial bleeds or masses. There is cerebral volume loss for age, with resultant ventricular and sulcal prominence. There are periventricular and deep white matter chronic small vessel ischemic changes. There is intracranial internal carotid artery atherosclerosis. Skull and face: Calvarium and visualized facial bones appear intact, without suspicious lesions. Sinuses: Visualized sinuses demonstrate prominent mucosal thickening within the right maxillary sinus with possible small fluid levels. IMPRESSION: 1. No acute intracranial process. 2. Mild to moderate atrophy and chronic microvascular ischemic changes. Dictated by: Inga Peres M.D. on 03/09/2023 at 21:04 Approved by: Inga Peres M.D. on 03/09/2023 at 21:06
--- NOTE | 2023-03-09 20:43 | PC.NURSE ---
Pt's states that she had a convulsing episode 1 hr prior to EMS arrival. Reports that it has happened one time before in the past and he believes that it was d/t low BP/being on too many BP meds so he had adjusted those. Pt did bite her tongue today. Dr. Olvera informed.
[2023-03-09 20:45] LABS: Adenovirus Not Detected (Not Detect); B. parapertussis Not Detected (Not Detecte); Bordetella pertussis Not Detected (Not Detect); Chlamydophila pneumoniae Not Detected (Not Detect); Coronavirus 229E Not Detected (Not Detect); Coronavirus HKU1 Not Detected (Not Detect); Coronavirus NL 63 Not Detected (Not Detect); Coronavirus OC43 Not Detected (Not Detect); Human Metapneumovirus Not Detected (Not Detect); Human Rhinovirus/Enterovirus Not Detected (Not Detect); Influenza A Not Detected (Not Detect); Influenza B Not Detected (Not Detect); Mycoplasma pneumoniae Not Detected (Not Detect); Parainfluenza Virus 1 Not Detected (Not Detect); Parainfluenza Virus 2 Not Detected (Not Detect); Parainfluenza Virus 3 Not Detected (Not Detect); Parainfluenza Virus 4 Not Detected (Not Detect); Respiratory Syncytial Virus Not Detected (Not Detect); SARS- CoV-2 Not Detected (Not Detecte)
[2023-03-09 20:45] LABS: Creatine Kinase 32 U/L (30-135)
[2023-03-09 20:58] LABS: Troponin I 0.035 ng/mL (0.01-0.034)
[2023-03-09 21:03] LABS: Procalcitonin 0.41 ng/mL (<0.5)
[2023-03-09 21:17] LABS: Thyroid Stimulating Hormone 13.2 uIU/mL (0.47-4.68)
[2023-03-09] MEDS: HYDROMORPHONE 0.5 MG INJ IV (22:37)
[2023-03-09 23:13] LABS: Free T4, Direct Thyroxine 1.18 ng/dL (0.78-2.19)
[2023-03-09 23:48] LABS: NT-proBNP (BNP-Adult 18+) 1880 pg/mL (<125); Troponin I 0.034 ng/mL (0.01-0.034)
[2023-03-10] VITALS (13 sets, daily range): BP systolic 125–154; BP diastolic 62–84; PULSE 72–104; RESP 11–19; TEMP 36.8–36.9; O2SAT 91–98; BMI 25.1
[2023-03-10] MEDS: HYDROMORPHONE 0.5 MG INJ IV (00:51)
--- NOTE | 2023-03-10 02:48 | P.HP_ITS ---
History of Present Illness History of Present Illness Date Patient Seen: 03/10/23 Chief complaint: AMS Narrative: 73 y/o with PMH of psoriatic artritis, asthma, HTN, HLD, developed generalized weakness 2 weeks ago, followed by frequent episodes of dizziness, nausea and vomiting- starting 1 week ago. On presentation to ED hypokalemic, hyponatremic. reported on likely seizure that happened prior to arrival when she was shaking head and both arms for about 1 minute and bit her tongue. In addition, presented with sternal pain, musculoskeletal, since her GLF 2 weeks ago when she hit her chest wall. She has a history of hypokalemia. In September, this year, she was seen in ED with similar complaints of several days of nausea, vomiting, and with hypokalemia. [facility] Medical History (Updated 03/10/23 @ 05:49 by Kendrick Meza MD) Hypothyroidism GERD (gastroesophageal reflux disease) Chronic hypokalemia Hyperlipidemia Hypertension Type 2 diabetes mellitus Psoriasis Psoriatic arthritis Chronic kidney disease Social History household members: spouse Smoking Status: Former smoker alcohol intake: current substance use type: does not use Meds Home Medications and Allergies Home Medications Medication Instructions Recorded Confirmed Type Diphenhydramine-Lidocaine Viscous 15 ml PO QID PRN Mouth Pain 04/16/18 History Maalox Mouthwash One Touchverio In Vitro Strip 04/16/18 04/16/18 History acebutolol 400 mg capsule 400 mg PO BID 04/16/18 04/16/18 History albuterol sulfate 90 mcg/actuation 2 puff inhalation Q4-6H PRN 04/16/18 04/16/18 History aerosol inhaler (Ventolin HFA) Bronchodilation amlodipine 5 mg tablet 5 mg PO DAILY 04/16/18 04/16/18 History fenofibrate nanocrystallized 48 mg 48 mg PO DAILY 04/16/18 04/16/18 History tablet (Tricor) fluticasone 250 mcg-salmeterol 50 1 inh inhalation BID 04/16/18 04/16/18 History mcg/dose blistr powdr for inhalation (Advair Diskus) furosemide 20 mg tablet 20 mg PO Q OTHER DAY 04/16/18 04/16/18 History gabapentin 300 mg capsule 300 mg PO TID 04/16/18 04/16/18 History inhalational spacing device (E-Z 04/16/18 04/16/18 History Spacer) insulin NPH isoph U-100 human 100 45 unit SUBCUT QPM 04/16/18 04/16/18 History unit/mL subcutaneous suspension (Novolin N NPH U-100 Insulin isophane) insulin aspart U-100 100 unit/mL 4 - 10 unit SUBCUT QPM 04/16/18 04/16/18 History (3 mL) subcutaneous pen (Novolog FlexPen U-100 Insulin aspart) insulin detemir U-100 100 unit/mL 36 unit SUBCUT QPM 04/16/18 04/16/18 History (3 mL) subcutaneous pen (Levemir FlexTouch U-100 Insulin) insulin syringe-needle U-100 0.3 04/16/18 04/16/18 History mL 29 gauge x 1/2 (BD Insulin Syringe) levothyroxine 75 mcg tablet 75 mcg PO DAILY 04/16/18 04/16/18 History (Synthroid) nortriptyline 25 mg capsule 25 mg PO BID 04/16/18 04/16/18 History omega 7-jhd-hyp-fish oil 1,000 mg 1 cap PO TID 04/16/18 04/16/18 History (120 mg-180 mg) capsule (Fish Oil) omeprazole 20 mg tablet,delayed 20 mg PO BID 04/16/18 04/16/18 History release pen needle, diabetic 31 gauge x 04/16/18 04/16/18 History 5/16 (Unifine Pentips) rosuvastatin 40 mg tablet (Crestor) 40 mg PO DAILY 04/16/18 04/16/18 History spironolactone 25 1 tab PO DAILY 04/16/18 04/16/18 History mg-hydrochlorothiazide 25 mg tablet hydrocodone 5 mg-acetaminophen 325 1 tab PO Q6H PRN pain #10 tabs 09/29/22 Rx mg tablet ondansetron 4 mg disintegrating 4 mg PO Q8H PRN nausea and 09/29/22 Rx tablet vomiting #10 tabs Allergies Allergy/AdvReac Type Severity Reaction Status Date / Time Penicillins Allergy Severe Difficulty Verified 03/09/23 19:25 Breathing Review of Systems Constitutional Comments: at present w/o fever, sweats or chills Eyes Comments: w/o recent vision changes ENT Comments: w/o congestion or sore throat Cardiovascular Comments: w/o palpitations or cardiac chest pain Respiratory Comments: w/o cough Has mild shortness of breath, w/o wheezing Gastrointestinal Comments: nausea, vomiting Genitourinary Comments: w/o dysuria Musculoskeletal Comments: chest wall tenderness - sternum Neurologic Comments: reported on likely seizure - see HPI Psychiatric Comments: normal mood Exam Vital Signs (past 8 hours): - 03/09/23 19:20 03/09/23 19:20 03/09/23 19:26 Temperature 98.5 F Pulse Rate 85 84 84 Respiratory Rate 16 13 15 Blood Pressure 155/78 H Pulse Oximetry 96 94 94 Oxygen Delivery Method Room Air 03/09/23 19:26 03/09/23 19:30 03/09/23 19:30 Temperature Pulse Rate 80 Respiratory Rate 20 Blood Pressure 149/72 H 137/68 Pulse Oximetry 94 Oxygen Delivery Method 03/09/23 20:00 03/09/23 20:00 03/09/23 20:30 Temperature Pulse Rate 77 76 Respiratory Rate 12 16 Blood Pressure 149/70 H Pulse Oximetry 94 Oxygen Delivery Method 03/09/23 20:30 03/09/23 21:00 03/09/23 21:06 Temperature Pulse Rate 76 76 Respiratory Rate Blood Pressure 148/71 H Pulse Oximetry 96 94 Oxygen Delivery Method 03/09/23 21:06 03/09/23 21:30 03/09/23 21:30 Temperature Pulse Rate 77 Respiratory Rate Blood Pressure 141/70 H 139/65 Pulse Oximetry 94 Oxygen Delivery Method 03/09/23 22:00 03/09/23 22:00 03/09/23 22:30 Temperature Pulse Rate 77 77 Respiratory Rate Blood Pressure 147/77 H Pulse Oximetry 97 98 Oxygen Delivery Method 03/09/23 22:30 03/09/23 23:00 03/09/23 23:00 Temperature Pulse Rate 78 Respiratory Rate 12 Blood Pressure 151/74 H 136/70 Pulse Oximetry 93 Oxygen Delivery Method 03/09/23 23:12 03/09/23 23:12 03/09/23 23:30 Temperature Pulse Rate 77 77 Respiratory Rate 10 L 12 Blood Pressure 147/71 H Pulse Oximetry 93 91 Oxygen Delivery Method 03/09/23 23:30 03/10/23 00:00 03/10/23 00:00 Temperature Pulse Rate 77 Respiratory Rate 14 Blood Pressure 133/67 137/66 Pulse Oximetry 92 Oxygen Delivery Method 03/10/23 00:30 03/10/23 00:30 03/10/23 01:00 Temperature Pulse Rate 79 84 Respiratory Rate 11 L 13 Blood Pressure 141/72 H Pulse Oximetry 93 91 Oxygen Delivery Method 03/10/23 01:00 03/10/23 01:30 03/10/23 01:30 Temperature Pulse Rate 78 Respiratory Rate 14 Blood Pressure 149/78 H 146/70 H Pulse Oximetry 92 Oxygen Delivery Method 03/10/23 02:18 Temperature 98.3 F Pulse Rate 82 Respiratory Rate 16 Blood Pressure 136/80 Pulse Oximetry 96 Oxygen Delivery Method Oxygen Delivery Method Room Air Narrative Exam Narrative: sitting in bed in no distress, at bedside HENMT Other: Rt side of the tongue swollen from recent bite Eyes Other: PERRLA, EOMI Neck Other: w/o JVD, supple, w/o swelling Chest Other: sternal tenderness Resp Other: CTA Cardio Other: RRR GI Other: soft, not distended Skin Other: w/o rashes Neuro Other: w/o focal deficits Extrem Other: 1 + lower legs edemas Psych Other: flat affect, lucid Objective Labs 03/09/23 19:29 03/09/23 19:29 Labs: Laboratory Results - last 24 hr 03/09/23 03/09/23 03/09/23 19:25 19:29 19:32 WBC 5.6 RBC 3.71 L Hgb 11.7 L Hct 34.7 L MCV 93.6 MCH 31.6 MCHC 33.8 RDW 16.6 H Plt Count 419 H Neut % (Auto) 56.6 Lymph % (Auto) 29.2 Hardin % (Auto) 11.8 Eos % (Auto) 1.1 L Baso % (Auto) 1.3 Neut # (Auto) 3200 Lymph # (Auto) 1600 Hardin # (Auto) 700 Eos # (Auto) 100 Baso # (Auto) 100 Sodium 129 L Potassium 2.4 L* Chloride 84 L Carbon Dioxide 32 BUN 20 H Creatinine 1.69 H Estimated GFR 32 L BUN/Creatinine Ratio 11.8 Glucose 291 H Calcium 8.3 L Total Bilirubin 0.6 AST 37 H ALT 15 Alkaline Phosphatase 183 H Total Creatine Kinase Troponin I NT-Pro-B Natriuret Pep Total Protein 7.1 Albumin 3.3 L Globulin 3.8 Albumin/Globulin Ratio 0.9 L Lipase 34 Procalcitonin TSH Free T4 Urine RBC 1-5/hpf Urine WBC 1-5/hpf Ur Squamous Epith Cells 1-5 /hpf Urine Bacteria Few (2-10) H Hyaline Casts 1-5/lpf Ur Culture Indicated? Cult not indicated Chlamy pneumoniae PCR Not detected Adenovirus (PCR) Not detected B.parapertussis DNA PCR Not detected Coronavirus OC43 (PCR) Not detected Coronavirus HKU1 (PCR) Not detected Coronavirus 229E (PCR) Not detected SARS-CoV-2 (PCR) Negative Coronavirus NL63 (PCR) Human Metapneumovir PCR Influenza A (RT-PCR) Influenza Type A (PCR) Influenza B (RT-PCR) Influenza Type B (PCR) M. pneumoniae (PCR) Parainfluenza 1 (PCR) Parainfluenza 2 (PCR) Parainfluenza 3 (PCR) Parainfluenza 4 (PCR) RSV (PCR) Entero/Rhino (PCR) 03/09/23 03/09/23 03/09/23 19:32 19:32 20:35 WBC RBC Hgb Hct MCV MCH MCHC RDW Plt Count Neut % (Auto) Lymph % (Auto) Hardin % (Auto) Eos % (Auto) Baso % (Auto) Neut # (Auto) Lymph # (Auto) Hardin # (Auto) Eos # (Auto) Baso # (Auto) Sodium Potassium Chloride Carbon Dioxide BUN Creatinine Estimated GFR BUN/Creatinine Ratio Glucose Calcium Total Bilirubin AST ALT Alkaline Phosphatase Total Creatine Kinase 32 Troponin I 0.035 H NT-Pro-B Natriuret Pep Total Protein Albumin Globulin Albumin/Globulin Ratio Lipase Procalcitonin 0.41 TSH 13.2 H Free T4 1.18 Urine RBC Urine WBC Ur Squamous Epith Cells Urine Bacteria Hyaline Casts Ur Culture Indicated? Chlamy pneumoniae PCR Adenovirus (PCR) B.parapertussis DNA PCR Coronavirus OC43 (PCR) Coronavirus HKU1 (PCR) Coronavirus 229E (PCR) SARS-CoV-2 (PCR) Not detected Coronavirus NL63 (PCR) Not detected Human Metapneumovir PCR Not detected Influenza A (RT-PCR) Flu a negative Influenza Type A (PCR) Not detected Influenza B (RT-PCR) Flu b negative Influenza Type B (PCR) Not detected M. pneumoniae (PCR) Not detected Parainfluenza 1 (PCR) Not detected Parainfluenza 2 (PCR) Not detected Parainfluenza 3 (PCR) Not detected Parainfluenza 4 (PCR) Not detected RSV (PCR) Negative Not detected Entero/Rhino (PCR) Not detected 03/09/23 22:40 WBC RBC Hgb Hct MCV MCH MCHC RDW Plt Count Neut % (Auto) Lymph % (Auto) Hardin % (Auto) Eos % (Auto) Baso % (Auto) Neut # (Auto) Lymph # (Auto) Hardin # (Auto) Eos # (Auto) Baso # (Auto) Sodium Potassium Chloride Carbon Dioxide BUN Creatinine Estimated GFR BUN/Creatinine Ratio Glucose Calcium Total Bilirubin AST ALT Alkaline Phosphatase Total Creatine Kinase Troponin I 0.034 NT-Pro-B Natriuret Pep 1880 H Total Protein Albumin Globulin Albumin/Globulin Ratio Lipase Procalcitonin TSH Free T4 Urine RBC Urine WBC Ur Squamous Epith Cells Urine Bacteria Hyaline Casts Ur Culture Indicated? Chlamy pneumoniae PCR Adenovirus (PCR) B.parapertussis DNA PCR Coronavirus OC43 (PCR) Coronavirus HKU1 (PCR) Coronavirus 229E (PCR) SARS-CoV-2 (PCR) Coronavirus NL63 (PCR) Human Metapneumovir PCR Influenza A (RT-PCR) Influenza Type A (PCR) Influenza B (RT-PCR) Influenza Type B (PCR) M. pneumoniae (PCR) Parainfluenza 1 (PCR) Parainfluenza 2 (PCR) Parainfluenza 3 (PCR) Parainfluenza 4 (PCR) RSV (PCR) Entero/Rhino (PCR) Assessment & Plan Assessment and plan (1) Nausea and vomiting: Status: Acute (2) GERD (gastroesophageal reflux disease): Status: Acute (3) Acute hyponatremia: Status: Acute Plan: Had 1 L of NS in ED - GI loses - BMP pending (4) Acute hypokalemia: Status: Acute Plan: Had 40 mEq in ED, iv - GI losses - recurrent BMP pending - at 7 am K K 2.5 - getting additional 40 mEq of K (5) Contusion of sternum: Qualifiers: Encounter type: initial encounter Qualified Code(s): S20.219A - Contusion of unspecified front wall of thorax, initial encounter Status: Acute Plan: Sustained on 02/19 when she bumped her cest wall Without obvious fractures Pain management - required iv small dose of narcotic as she was unable to hold anything down due to nausea (6) Hypertension: Status: Acute (7) Type 2 diabetes mellitus: Status: Acute Plan: Insulin dependent. Possible diabetic gastroparesis. Gastric emptying study to be considered if continues with frequent episodes of nausea / vomiting. - SS, Lantus, diabetic diet (8) Psoriatic arthritis: Problem details: On Remicade Status: Acute Plan: - missed Remicade dose few days ago (9) Chronic kidney disease: Status: Acute Plan: Likely stage 3B (10) Seizure: Status: Acute Plan: I believe that she had a seizure, based on 's description and obvious tongue bite. Doubt it is related to Na of 129 - possible had bradyarrhythmia and briefly brain hypoperfusion (11) Weakness: Status: Acute (12) Hypothyroidism: Status: Acute Plan: - on 75 mcg of Synthroid, TSH 13, repeat level, added T3/4
[2023-03-10] MEDS: PROCHLORPERAZINE 10 MG/2 ML VIAL 5 MG IV (02:59)
[2023-03-10] MEDS: MORPHINE 2 MG/ML INJ 1 MG IV ×4 (04:02→10:12)
--- NOTE | 2023-03-10 04:15 | PC.NURSE ---
Addendum entered by Deborah Vargas R.N. 03/10/23 04:22: Attempted to update medication list however patient & are unsure of what she is currently taking. stated that he will bring in the patient's medication list in the morning. 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 Patient is alert and oriented to self, place, situation, & month/year, although forgetful at times. Experiencing nausea w/ small amount of emesis, unable to keep anything down at the moment. 9/10 sternal pain d/t previous fall when she landed on her chest, pain increases when vomiting. Mild SOB w/ exertion, lung sounds are clear upon auscultation. VSS, 96% on RA. Cardiac monitoring placed. Seizure precautions in place. IV Compazine & Morphine given w/ good effect. Patient resting in bed, oriented to room & call light, in the room, fall precautions in place.
[2023-03-10 06:13] LABS: BUN Creatinine Ratio 11.9 (6-22); Blood Urea Nitrogen 21 mg/dL (7-17); Calcium 8.2 mg/dL (8.4-10.2); Carbon Dioxide 35 mmol/L (22-32); Chloride 90 mmol/L (98-107); Estimated Glomerular Filt Rate 30 mL/min (>60); Glucose 262 mg/dL (80-110); HEMOLYSIS < 15 (0-50); Sodium 129 mmol/L (137-145)
[2023-03-10 06:44] LABS: Potassium 2.5 mmol/L (3.4-5.1)
[2023-03-10 07:25] LABS: Magnesium 1.2 mg/dL (1.6-2.3)
[2023-03-10] MEDS: POTASSIUM CHLORIDE IN WATER 10 MEQ/100 ML PIGGYBACK 100 MEQ IV ×4 (07:31→11:15)
[2023-03-10 07:43] LABS: Free T4, Direct Thyroxine 1.39 ng/dL (0.78-2.19); T4 Total Thyroxine 8.14 ug/dL (5.5-11.0)
[2023-03-10] MEDS: ENOXAPARIN 30 MG/0.3 ML SYRINGE SUBCUT (08:27)
[2023-03-10] MEDS: INSULIN LISPRO 100 UNIT/ML 3ML VIAL SUBCUT ×4 (08:27→20:45)
[2023-03-10] MEDS: ALBUTEROL 2.5 MG/3 ML NEB (ADULT) INH ×4 (08:40→19:05)
[2023-03-10] MEDS: BUDESONIDE 0.5 MG/2 ML NEB INH ×2 (08:40→19:05)
[2023-03-10] MEDS: MAGNESIUM SULFATE 4 GM/100 ML PIGGYBACK IV (12:57)
--- NOTE | 2023-03-10 15:56 | DI.CT.S_ITS ---
PROCEDURE: CT ABDOMEN PELVIS WO CON INDICATIONS: abdominal pain, vomiting TECHNIQUE: Noncontrast 5 mm thick sections acquired from the diaphragms to the symphysis. 5 mm coronal and sagittal reformats were then performed. For radiation dose reduction, the following was used: automated exposure control, adjustment of mA and/or kV according to patient size. COMPARISON: [facility], CT, CT CHEST WO [facility], 10/28/2019, 15:41. FINDINGS: Image quality: Excellent. ABDOMEN: Lung bases: Lung bases are clear. Heart size is normal. Solid organs: Liver is normal in size. Gallbladder is moderately distended. No gallbladder wall thickening or pericholecystic fluid. Pancreas is normal in contours. Spleen is normal in size. No adrenal nodules. Kidneys are normal in size, without hydronephrosis. Nonobstructing 3 and 2 mm calculi are present within the upper pole of the left kidney. There are low-density cortical cystic lesions in the bilateral kidneys. Peritoneum and bowel: Unenhanced bowel loops demonstrate normal wall thickness and caliber. There are scattered sigmoid diverticula. No evidence for diverticulitis. The appendix is thin walled and gas filled. No free fluid or air. Nodes and vessels: No retroperitoneal or mesenteric adenopathy by size criteria. Aorta and inferior vena cava are normal in caliber. There are scattered atheromatous calcifications throughout the aorta and iliac arteries bilaterally. Miscellaneous: No ventral hernias. PELVIS: Genitourinary: Bladder wall thickness is normal. Miscellaneous: No inguinal hernias or adenopathy. Bones: No suspicious bony lesions. No vertebral body compression fractures. IMPRESSION: 1. No acute intra-abdominal findings. Normal appendix. Diverticulosis. No acute diverticulitis. 2. Nonobstructive left nephrolithiasis. 3. Distension of the gallbladder without gallbladder wall thickening, pericholecystic fluid, or intrahepatic biliary ductal dilatation. The significance of this finding is unclear. Correlation with serology markers including alkaline phosphatase and transaminases may be helpful. Dictated by: Nisa Eisenberg M.D. on 03/10/2023 at 16:01 Approved by: Nisa Eisenberg M.D. on 03/10/2023 at 16:06
[2023-03-10 16:12] LABS: Blood Urea Nitrogen 21 mg/dL (7-17); Calcium 8.3 mg/dL (8.4-10.2); Carbon Dioxide 32 mmol/L (22-32); Chloride 89 mmol/L (98-107); Estimated Glomerular Filt Rate 28 mL/min (>60); Glucose 297 mg/dL (80-110); HEMOLYSIS < 15 (0-50); Sodium 127 mmol/L (137-145)
[2023-03-10 16:20] LABS: Potassium 2.7 mmol/L (3.4-5.1)
--- NOTE | 2023-03-10 16:28 | CM.DANOTE ---
Brief DCP Assessment Patient is a 73yo F here for n/v and weakness/acute hyponatremia PCP none in chart Payer Medicare and [facility] reviewed EMR. Patient was gone for at CT when attempted assessment. Per RN, patient doing well. Patient indep in room and has very supportive spouse at bedside. No needs anticipated at this time. Plan: likely home with spouse when medically stable. CM team will complete comprehensive dcp assessment when able. No needs identified at this time per chart review. CM team will continue to follow closely. ABIMBOLA Chan Discharge Planning/Care Management CM Discharge Assessment Start: 03/10/23 16:26 Freq: Status: Active Protocol: Document 03/10/23 16:26 (Rec: 03/10/23 16:28 [id number]) Discharge Planning Assessment Assigned Manager Ethics ABIMBOLA Fernandez DPOA/Assigned Designee Name Lio Heath (spouse) Contact Information [phone] Advance Directives? No History Provided By Medical Record Prior Living Arrangements RV Household Members spouse Discharge Plan Home Whiteboard Updated in Patient Room with No name and ext. # of Manager Ethics Review Status In Process Next Review Type Continued Stay Review
[2023-03-10] MEDS: LORazepam 2 MG/ML INJ 0.5 MG IV ×2 (16:40→20:46)
--- NOTE | 2023-03-10 20:00 | DI.US.S_ITS ---
PROCEDURE: US ABDOMEN LIMITED INDICATIONS: ABDOMINAL PAIN AND VOMITING TECHNIQUE: Real-time scanning was performed of the abdominal and retroperitoneal organs, with image documentation. COMPARISON: [facility], CT, CT ABDOMEN PELVIS WO CON, 03/10/2023, 15:55. FINDINGS: Liver: Liver is normal in size and homogeneous in echotexture. Gallbladder: Distended gallbladder with no wall thickening or pericholecystic fluid. Wall thickness measures 1.6 mm. No stones or sludge. Biliary ducts: Intrahepatic bile ducts are non-dilated. Extrahepatic bile duct caliber measures 5.3 mm. Normal is 6-7 mm or less in diameter, or 10 mm or less post-cholecystectomy. Pancreas: Not well seen secondary to bowel gas. IMPRESSION: Distended gallbladder with no wall thickening, pericholecystic fluid or stones. Findings may be secondary to a fasted state, less likely acute cholecystitis. Correlate with LFTs. If there is high clinical suspicion for acute cholecystitis, a HIDA scan can be performed for further evaluation. Dictated by: Jessica Valdes M.D. on 03/11/2023 at 8:54 Approved by: Jessica Valdes M.D. on 03/11/2023 at 8:58
--- NOTE | 2023-03-10 20:01 | P.PN_ITS ---
Subjective Subjective Date Patient Seen: 03/10/23 Time Patient Seen: 08:00 Interval history: She is hesitant to eat but currently is feeling improved in terms of abdominal discomfort and nausea, she has only had small amounts of sips of liquids Exam Vital Signs (past 8 hours): - 03/10/23 16:00 03/10/23 17:31 03/10/23 19:07 Pulse Rate 94 H 78 Respiratory Rate 18 18 Blood Pressure 125/72 Pulse Oximetry 96 95 96 Oxygen Delivery Method Room Air Room Air Oxygen Flow Rate 0 0 Fraction of Inspired Oxygen 21 Fraction of Inspired Oxygen 21 SaO2/FiO2 Ratio 452 Oxygen Delivery Method Room Air Oxygen Flow Rate 0 Narrative Exam Narrative: GEN: no acute distress CV: regular rate and rhythm, no murmurs PULM: clear bilaerally ABD: soft, nontender EXT: warm and well perfused with no edema Objective Labs 03/09/23 19:29 03/10/23 15:43 Labs: Laboratory Results - last 24 hr 03/09/23 03/09/23 03/09/23 19:25 19:32 19:32 Sodium Potassium Chloride Carbon Dioxide BUN Creatinine Estimated GFR BUN/Creatinine Ratio Glucose Calcium Magnesium Total Creatine Kinase Troponin I NT-Pro-B Natriuret Pep Procalcitonin TSH Free T4 Thyroxine (T4) Urine RBC 1-5/hpf Urine WBC 1-5/hpf Ur Squamous Epith Cells 1-5 /hpf Urine Bacteria Few (2-10) H Hyaline Casts 1-5/lpf Ur Culture Indicated? Cult not indicated Chlamy pneumoniae PCR Not detected Adenovirus (PCR) Not detected B.parapertussis DNA PCR Not detected Coronavirus OC43 (PCR) Not detected Coronavirus HKU1 (PCR) Not detected Coronavirus 229E (PCR) Not detected SARS-CoV-2 (PCR) Negative Not detected Coronavirus NL63 (PCR) Not detected Human Metapneumovir PCR Not detected Influenza A (RT-PCR) Flu a negative Influenza Type A (PCR) Not detected Influenza B (RT-PCR) Flu b negative Influenza Type B (PCR) Not detected M. pneumoniae (PCR) Not detected Parainfluenza 1 (PCR) Not detected Parainfluenza 2 (PCR) Not detected Parainfluenza 3 (PCR) Not detected Parainfluenza 4 (PCR) Not detected RSV (PCR) Negative Entero/Rhino (PCR) 03/09/23 03/09/23 03/09/23 19:32 20:35 22:40 Sodium Potassium Chloride Carbon Dioxide BUN Creatinine Estimated GFR BUN/Creatinine Ratio Glucose Calcium Magnesium Total Creatine Kinase 32 Troponin I 0.035 H 0.034 NT-Pro-B Natriuret Pep 1880 H Procalcitonin 0.41 TSH 13.2 H Free T4 1.18 Thyroxine (T4) Urine RBC Urine WBC Ur Squamous Epith Cells Urine Bacteria Hyaline Casts Ur Culture Indicated? Chlamy pneumoniae PCR Adenovirus (PCR) B.parapertussis DNA PCR Coronavirus OC43 (PCR) Coronavirus HKU1 (PCR) Coronavirus 229E (PCR) SARS-CoV-2 (PCR) Coronavirus NL63 (PCR) Human Metapneumovir PCR Influenza A (RT-PCR) Influenza Type A (PCR) Influenza B (RT-PCR) Influenza Type B (PCR) M. pneumoniae (PCR) Parainfluenza 1 (PCR) Parainfluenza 2 (PCR) Parainfluenza 3 (PCR) Parainfluenza 4 (PCR) RSV (PCR) Not detected Entero/Rhino (PCR) Not detected 03/10/23 03/10/23 05:23 15:43 Sodium 129 L 127 L Potassium 2.5 L* 2.7 L* Chloride 90 L 89 L Carbon Dioxide 35 H 32 BUN 21 H 21 H Creatinine 1.77 H 1.91 H Estimated GFR 30 L 28 L BUN/Creatinine Ratio 11.9 11.0 Glucose 262 H 297 H Calcium 8.2 L 8.3 L Magnesium 1.2 L 2.0 Total Creatine Kinase Troponin I NT-Pro-B Natriuret Pep Procalcitonin TSH Free T4 1.39 Thyroxine (T4) 8.14 Urine RBC Urine WBC Ur Squamous Epith Cells Urine Bacteria Hyaline Casts Ur Culture Indicated? Chlamy pneumoniae PCR Adenovirus (PCR) B.parapertussis DNA PCR Coronavirus OC43 (PCR) Coronavirus HKU1 (PCR) Coronavirus 229E (PCR) SARS-CoV-2 (PCR) Coronavirus NL63 (PCR) Human Metapneumovir PCR Influenza A (RT-PCR) Influenza Type A (PCR) Influenza B (RT-PCR) Influenza Type B (PCR) M. pneumoniae (PCR) Parainfluenza 1 (PCR) Parainfluenza 2 (PCR) Parainfluenza 3 (PCR) Parainfluenza 4 (PCR) RSV (PCR) Entero/Rhino (PCR) [facility] Medical History (Updated 03/10/23 @ 05:49 by Kendrick Meza MD) Hypothyroidism GERD (gastroesophageal reflux disease) Chronic hypokalemia Hyperlipidemia Hypertension Type 2 diabetes mellitus Psoriasis Psoriatic arthritis Chronic kidney disease Social History household members: spouse Smoking Status: Former smoker alcohol intake: current substance use type: does not use Assessment & Plan Assessment and plan (1) Nausea and vomiting: Status: Acute Plan: -ordered CT abdomen for further eval (2) GERD (gastroesophageal reflux disease): Status: Acute (3) Acute hyponatremia: Status: Acute Plan: Had 1 L of NS in ED - GI losses (4) Acute hypokalemia: Status: Acute Plan: secondary to GI losses, continue repletion and check daily (5) Contusion of sternum: Qualifiers: Encounter type: initial encounter Qualified Code(s): S20.219A - Contusion of unspecified front wall of thorax, initial encounter Status: Acute Plan: Sustained on 02/19 when she bumped her cest wall Without obvious fractures Pain management - required iv small dose of narcotic as she was unable to hold anything down due to nausea (6) Hypertension: Status: Acute (7) Type 2 diabetes mellitus: Status: Acute Plan: Insulin dependent. Possible diabetic gastroparesis. Gastric emptying study to be considered if continues with frequent episodes of nausea / vomiting. - SS, Lantus, diabetic diet (8) Psoriatic arthritis: Problem details: On Remicade Status: Acute Plan: - missed Remicade dose few days ago (9) Chronic kidney disease: Status: Acute Plan: Likely stage 3B (10) Seizure: Status: Acute Plan: unclear if she had a seizure, no seizure history, and no symptoms currently head CT unremarkable monitor for any seizure activity and if observed will need to start medications, but hold off for now (11) Weakness: Status: Acute (12) Hypothyroidism: Status: Acute Plan: - on 75 mcg of Synthroid, TSH 13, repeat level, added T3/4
[2023-03-10] MEDS: INSULIN GLARGINE 100 UNIT/ML 3ML PEN 36 UNIT SUBCUT (20:44)
[2023-03-10] MEDS: POTASSIUM CHLORIDE 20 MEQ TAB 40 MEQ PO (20:45)
[2023-03-11] VITALS (10 sets, daily range): BP systolic 133–166; BP diastolic 63–88; PULSE 77–113; RESP 14–20; TEMP 36.6–37.2; O2SAT 96–100
[2023-03-11] MEDS: DEXTROSE 10 % IN WATER 100 ML 1200 ML IV (02:32)
[2023-03-11 02:57] LABS: Hematocrit 29.6 % (36-46); Hemoglobin 10.2 g/dL (12.0-16.0); Mean Corpuscular HGB Conc 34.3 % (30-36); Mean Corpuscular Hemoglobin 32.1 PG (26-34); Mean Corpuscular Volume 93.7 fL (80-100); Platelet Count 314 X10^3/uL (150-400); Red Blood Cell Count 3.16 X10^6/uL (4.0-5.2); Red Cell Distribution Width 17.1 % (11.6-14.8); White Blood Cell Count 6.8 X10^3/uL (4.5-11.0)
[2023-03-11] MEDS: DEXTROSE 5% WATER 1,000 ML 75 ML IV (02:58)
[2023-03-11 03:09] LABS: Glucose 132 mg/dL (80-110)
[2023-03-11 03:16] LABS: Alanine Aminotransferase 14 IU/L (<35); Albumin 2.7 g/dL (3.5-5.0); Albumin Globulin Ratio 0.8 (1.0-2.8); Alkaline Phosphatase 165 U/L (38-126); Aspartate Aminotransferase 25 IU/L (14-36); BUN Creatinine Ratio 10.9 (6-22); Bilirubin Total 0.5 mg/dL (0.2-1.3); Blood Urea Nitrogen 23 mg/dL (7-17); Calcium 8.9 mg/dL (8.4-10.2); Carbon Dioxide 32 mmol/L (22-32); Chloride 92 mmol/L (98-107); Estimated Glomerular Filt Rate 25 mL/min (>60); Globulin 3.4 g/dL (1.7-4.1); Glucose 132 mg/dL (80-110); HEMOLYSIS < 15 (0-50); Magnesium 2.3 mg/dL (1.6-2.3); Sodium 130 mmol/L (137-145); Total Protein 6.1 g/dL (6.3-8.2)
[2023-03-11] MEDS: POTASSIUM CHLORIDE 20 MEQ TAB 40 MEQ PO (03:20)
[2023-03-11 03:25] LABS: Potassium 2.3 mmol/L (3.4-5.1)
--- NOTE | 2023-03-11 03:37 | P.PN_ITS ---
Subjective Subjective Interval history: Called by the nurse initially for hypoglycemia and then for hypokalemia Exam Vital Signs (past 8 hours): - 03/10/23 20:40 03/11/23 01:06 Temperature 98.2 F 98.6 F Pulse Rate 104 H 94 H Respiratory Rate 19 17 Blood Pressure 144/62 H 133/66 Pulse Oximetry 98 96 Oxygen Flow Rate 0 0 Fraction of Inspired Oxygen 21 SaO2/FiO2 Ratio 452 Oxygen Delivery Method Room Air Oxygen Flow Rate 0 Narrative Exam Narrative: no exam done Objective ECG Impression: Sinus arrhythmia, QTc 504 ms Labs 03/11/23 02:49 03/11/23 02:49 Labs: Laboratory Results - last 24 hr 03/10/23 03/10/23 03/11/23 05:23 15:43 02:49 WBC 6.8 RBC 3.16 L Hgb 10.2 L Hct 29.6 L MCV 93.7 MCH 32.1 MCHC 34.3 RDW 17.1 H Plt Count 314 Sodium 129 L 127 L 130 L Potassium 2.5 L* 2.7 L* 2.3 L* Chloride 90 L 89 L 92 L Carbon Dioxide 35 H 32 32 BUN 21 H 21 H 23 H Creatinine 1.77 H 1.91 H 2.11 H Estimated GFR 30 L 28 L 25 L BUN/Creatinine Ratio 11.9 11.0 10.9 Glucose 262 H 297 H 132 H D Calcium 8.2 L 8.3 L Magnesium 1.2 L 2.0 Total Bilirubin AST ALT Alkaline Phosphatase Total Protein Albumin Globulin Albumin/Globulin Ratio Free T4 1.39 Thyroxine (T4) 8.14 03/11/23 02:49 WBC RBC Hgb Hct MCV MCH MCHC RDW Plt Count Sodium Potassium Chloride Carbon Dioxide BUN Creatinine Estimated GFR BUN/Creatinine Ratio Glucose 132 H Calcium 8.9 Magnesium 2.3 Total Bilirubin 0.5 AST 25 ALT 14 Alkaline Phosphatase 165 H Total Protein 6.1 L Albumin 2.7 L Globulin 3.4 Albumin/Globulin Ratio 0.8 L Free T4 Thyroxine (T4) [facility] Medical History (Updated 03/11/23 @ 03:40 by Kendrick Meza MD) Hypothyroidism GERD (gastroesophageal reflux disease) Chronic hypokalemia Hyperlipidemia Hypertension Type 2 diabetes mellitus Psoriasis Psoriatic arthritis Chronic kidney disease Social History household members: spouse Smoking Status: Former smoker alcohol intake: current substance use type: does not use Assessment & Plan Assessment and plan (1) Hypoglycemia: Status: Acute Plan: CBG 35, few hours after hs dose of Lantus. Her PO intake was poor during the day. Discontinued Lantus. Given 1 amp of D50 - afterwards CBG 110 Started [id number] (2) Hypokalemia: Status: Acute Plan: Refractory to all po and iv K given since the admission At 3 am K 2.3 - given 40 mEq po, started IVFs with 20 mEq of K, started 6 10 mEq riders and additional 2 g of Mg Continued telemetry monitoring w/o ventricular arrhythmias or torsades Stable vitals.
[2023-03-11] MEDS: DEXTROSE 5%-0.45NS W/KCL 20MEQ 1,000 ML 84 MEQ IV (03:53)
[2023-03-11] MEDS: MAGNESIUM SULFATE 2 GM/50 ML PIGGYBACK IV (03:54)
[2023-03-11] MEDS: POTASSIUM CHLORIDE IN WATER 10 MEQ/100 ML PIGGYBACK 100 MEQ IV ×3 (03:57→08:16)
[2023-03-11] MEDS: POTASSIUM CHLORIDE IN WATER 10 MEQ/100 ML PIGGYBACK 50 MEQ IV (05:50)
[2023-03-11] MEDS: POTASSIUM CHLORIDE 20 MEQ/15 ML UDC 40 MEQ PO (06:52)
[2023-03-11] MEDS: ENOXAPARIN 30 MG/0.3 ML SYRINGE SUBCUT (08:21)
[2023-03-11] MEDS: BUDESONIDE 0.5 MG/2 ML NEB INH ×2 (08:37→21:00)
[2023-03-11] MEDS: ALBUTEROL 2.5 MG/3 ML NEB (ADULT) INH ×4 (08:37→21:00)
[2023-03-11 09:19] LABS: HEMOLYSIS < 15 (0-50); Potassium 4.7 mmol/L (3.4-5.1)
[2023-03-11] MEDS: ACETAMINOPHEN 325 MG TABLET 650 MG PO (09:25)
[2023-03-11] MEDS: LORazepam 2 MG/ML INJ 0.5 MG IV ×3 (09:26→21:03)
[2023-03-11] MEDS: INSULIN LISPRO 100 UNIT/ML 3ML VIAL SUBCUT ×2 (11:56→17:14)
--- NOTE | 2023-03-11 12:32 | DI.NM.S_ITS ---
PROCEDURE: NM HIDA WITH CCK PHARMACEUTICAL: 5.5 mCi Tc-99m mebrofenin IV; 1.4 mcg CCK IV. INDICATIONS: cholecystitis? TECHNIQUE: Following intravenous administration of Tc-99m mebrofenin, sequential anterior abdominal images were obtained. To evaluate the contractile response of the gallbladder in response to Cholecystokinin (CCK), sincalide (0.02 ?g/kg) was administered by slow intravenous infusion approximately 60 minutes after the administration of the radiopharmaceutical. Sequential imaging was continued for 30 minutes after the start of CCK infusion. Gallbladder ejection fraction was calculated. COMPARISON: [facility], ABDOMEN LIMITED, 03/11/2023, 7:18. FINDINGS: Biliary scan: There is normal tracer uptake and excretion by the liver. There is normal visualization of the intrahepatic ducts, common bile duct, and gallbladder. There is normal tracer transit into the duodenum. CCK stimulation: There is normal contractile response of the gallbladder to CCK infusion. The calculated gallbladder ejection fraction is 71% ; normal values are above 35%. IMPRESSION: The cystic duct is patent. Normal gallbladder ejection fraction. Dictated by: Kamaljit Andre M.D. on 03/13/2023 at 9:31 Approved by: Kamaljit Andre M.D. on 03/13/2023 at 9:32
--- NOTE | 2023-03-11 13:09 | DIET.CONS ---
Dietary Consultation Note Admission Date: 03/10/2023 01:18 Assessment: RD assessment due to MNA of 6 indicating risk of malnutrition. at bedside today. Lauryn states she has been losing weight for about one year due to poor appetite and n/v. States the n/v has been exacerbated over the last month. Reports weight of 237# one year ago, indicating -88.5# loss (almost 40% severe weight loss). Per report, pt has had DM for decades. Per provider reports, potential for gastroparesis. No recent HgA1c value. Reports variable BG at home, sometimes high or low. During visit she is sipping on ensure clear (52g CHO) and BG checked pre lunch, 220mg/dl. Nutrition focused physical exam indicates mild temporal wasting and moderate depressed interosseous muscle. Reports personal experience of weakness since dramatic weight loss. Drinks vanilla ONS at home but cuts with tera's tanna cream due to chalky flavor. Quite variable BG since admission with yesterday's numbers ranging from 260-370mg/dl and today's 35-110mg/dl with one 220mg/dl. Ht: 163.83 cm Wt: 68 kg BMI: 25.1 UBW: 108kg reported Last BM: () MNA: 6 Vick Score: 19 Diet: 03/10/23 Breakfast Carbohydrate Consistent Diet Diet Modifications: Carbohydrate level: Medium (3 CHO) Reflex DM orders: No Food Texture: Level 7 - Regular Liquid Consistency: Level 0 - Thin Nutrition Percent Meal Consumed 75% 03/11/23 09:17 Percent Meal Consumed 50% 03/10/23 18:00 Labs: RBC 3.16 X10^6/uL (4.0-5.2) L 03/11/23 02:49 Hgb 10.2 g/dL (12.0-16.0) L 03/11/23 02:49 Hct 29.6 % (36-46) L 03/11/23 02:49 Creatinine 2.11 mg/dL (0.52-1.04) H 03/11/23 02:49 NT-Pro-B Natriuret Pep 1880 pg/mL (<125) H 03/09/23 22:40 Nutrition Diagnosis: Chronic severe protein calorie malnutrition r/t nausea and vomitting impacting PO aeb severe weight loss of 37% over one year, NFPE indicating mild to moderate muscle/fat losses, and reported inadequate PO. -The patient is at much higher risk for medical and surgical complications because of his malnutrition.? This increases the difficulty and complexity of medical and surgical interventions and increases the chances of poor outcomes such as morbidity and mortality. Interventions: 1. Reviewed potential for more nutrition via full liquids, shakes and ONS-- she prefers to prioritize solids at this time 2. ONS cut with milk BID EER: 1900 kcal (per BMI) 102-125g (1.5-1.8g/kg per malnutrition) Monitoring/Evaluations: PO, BG, ONS tolerance; RD f/u 3-4 days Electronically Signed by: Carmen Silva 03/11/23 13:09 Clinical Dietitian [address] [address]
[2023-03-11] MEDS: NORTRIPTYLINE HCL 25 MG CAPSULE PO (15:28)
--- NOTE | 2023-03-11 16:41 | PM.PN.1 ---
Subjective Subjective Interval history: Overnight she was hypoglycemic, and her long acting insulin has been held. She was more hyokalemic down to 2.3, and given replacement. When I see her today, her symptoms are slightly improved. She is trying to eat food. Exam Vital Signs (past 8 hours): - 03/11/23 12:00 03/11/23 13:32 03/11/23 15:43 Temperature 98.2 F 98.8 F Pulse Rate 90 82 96 H Respiratory Rate 20 16 16 Blood Pressure 166/78 H 149/75 H Pulse Oximetry 98 98 99 Oxygen Delivery Method Room Air Oxygen Flow Rate 0 0 Fraction of Inspired Oxygen 21 Fraction of Inspired Oxygen 21 SaO2/FiO2 Ratio 466 Oxygen Delivery Method Room Air Oxygen Flow Rate 0 Narrative Exam Narrative: GEN: no acute distress CV: regular rate and rhythm, no murmurs PULM: clear bilaerally ABD: soft, nontender EXT: warm and well perfused with no edema Objective Labs 03/11/23 02:49 03/11/23 08:56 Labs: Laboratory Results - last 24 hr 03/11/23 03/11/23 03/11/23 02:49 02:49 08:56 WBC 6.8 RBC 3.16 L Hgb 10.2 L Hct 29.6 L MCV 93.7 MCH 32.1 MCHC 34.3 RDW 17.1 H Plt Count 314 Sodium 130 L Potassium 2.3 L* 4.7 D Chloride 92 L Carbon Dioxide 32 BUN 23 H Creatinine 2.11 H Estimated GFR 25 L BUN/Creatinine Ratio 10.9 Glucose 132 H D 132 H Calcium 8.9 Magnesium 2.3 Total Bilirubin 0.5 AST 25 ALT 14 Alkaline Phosphatase 165 H Total Protein 6.1 L Albumin 2.7 L Globulin 3.4 Albumin/Globulin Ratio 0.8 L [facility] Medical History (Updated 03/11/23 @ 03:40 by Kendrick Meza MD) Hypothyroidism GERD (gastroesophageal reflux disease) Chronic hypokalemia Hyperlipidemia Hypertension Type 2 diabetes mellitus Psoriasis Psoriatic arthritis Chronic kidney disease Social History household members: spouse Smoking Status: Former smoker alcohol intake: current substance use type: does not use Assessment & Plan Assessment and plan (1) Nausea and vomiting: Status: Acute Plan: -ordered CT abdomen for further eval which showed distended gallbladder, but otherwise she has no murphys sign, no fever, no leukocytosis, gb wall thickening so doubt infection, will order HIDA scan to rule out (2) GERD (gastroesophageal reflux disease): Status: Acute (3) Acute hyponatremia: Status: Acute Plan: Had 1 L of NS in ED - GI losses (4) Acute hypokalemia: Status: Acute Plan: secondary to GI losses, continue repletion and check daily (5) Contusion of sternum: Qualifiers: Encounter type: initial encounter Qualified Code(s): S20.219A - Contusion of unspecified front wall of thorax, initial encounter Status: Acute Plan: Sustained on 02/19 when she bumped her cest wall Without obvious fractures Pain management - required iv small dose of narcotic as she was unable to hold anything down due to nausea (6) Hypertension: Status: Acute (7) Type 2 diabetes mellitus: Status: Acute Plan: Insulin dependent. Possible diabetic gastroparesis. Gastric emptying study to be considered if continues with frequent episodes of nausea / vomiting. - SS, Lantus, diabetic diet (8) Psoriatic arthritis: Problem details: On Remicade Status: Acute Plan: - missed Remicade dose few days ago (9) Chronic kidney disease: Status: Acute Plan: Likely stage 3B (10) Seizure: Status: Acute Plan: unclear if she had a seizure, no seizure history, and no symptoms currently head CT unremarkable monitor for any seizure activity and if observed will need to start medications, but hold off for now (11) Weakness: Status: Acute (12) Hypothyroidism: Status: Acute Plan: - on 75 mcg of Synthroid, TSH 13, repeat level, added T3/4
--- NOTE | 2023-03-11 16:51 | CM.DPC ---
DCP continued DREDGE PUMPER reviewed EMR. Provider reports electrolytes unbalanced, blood sugar unbalanced, and had a case of vomiting overnight. August dc Thursday. DREDGE PUMPER entered room and introduced self and role. Patient accompanied by spouse Caden ([phone]) at bedside. Patient and spouse live in an in [place]. Patient uses a walker/cane at baseline. Has a chair that helps her up and down stairs. Patient reports spouse assists her with home chores/shopping, meal prep, and other ADLs. Spouse transports her, patient cannot drive. DREDGE PUMPER provided patient with [facility] booklet for general support. Patient interested in HH services, no preference. Patient not established with PCP. Patient was referred to Stephy Chance PA-C when her PCP retired however, has never seen her. Patient interested in PCP resources. Plan: home with spouse when medically stable. Cm team will follow with potential HH plan pending PCP/need for it. CM team will continue to follow closely. ABIMBOLA Chan
--- NOTE | 2023-03-11 17:02 | PC.NURSE ---
Day shift: Received call from PIERRE who stated gall bladder scan is scheduled for Tuesday 03/13 AM. She stated patient needs to be NPO starting MN 03/13 for procedure. Notified MD Sanchez. Pt had 2 episodes of nausea, IV ativan provided adequate relief. Pain in sternum and headache periodically this shift - gave prescribed pain medication. Pt tolerated meals with no emesis and ate more than she has in weeks per her . OOB SBA. BGs between 90 and 220 this shift. Recheck of potassium improved this AM. Will continue to monitor.
[2023-03-11] MEDS: HYDROCODONE/ACET 5/325 TABLET 2 TAB PO ×2 (17:13→21:07)
[2023-03-11] MEDS: PANTOPRAZOLE 40 MG VIAL IV (21:03)
[2023-03-12] VITALS (7 sets, daily range): BP systolic 142–158; BP diastolic 76–92; PULSE 76–101; RESP 16–20; TEMP 36.4–37.1; O2SAT 94–99
[2023-03-12] MEDS: HYDROCODONE/ACET 5/325 TABLET 2 TAB PO ×3 (00:40→20:46)
[2023-03-12] MEDS: LORazepam 2 MG/ML INJ 0.5 MG IV (00:46)
[2023-03-12 05:13] LABS: Hematocrit 27.9 % (36-46); Hemoglobin 9.5 g/dL (12.0-16.0); Mean Corpuscular HGB Conc 33.9 % (30-36); Mean Corpuscular Hemoglobin 32.4 PG (26-34); Mean Corpuscular Volume 95.4 fL (80-100); Platelet Count 257 X10^3/uL (150-400); Red Blood Cell Count 2.92 X10^6/uL (4.0-5.2); Red Cell Distribution Width 17.8 % (11.6-14.8); White Blood Cell Count 5.9 X10^3/uL (4.5-11.0)
[2023-03-12 05:29] LABS: BUN Creatinine Ratio 11.2 (6-22); Blood Urea Nitrogen 23 mg/dL (7-17); Calcium 9.4 mg/dL (8.4-10.2); Carbon Dioxide 27 mmol/L (22-32); Chloride 96 mmol/L (98-107); Estimated Glomerular Filt Rate 25 mL/min (>60); Glucose 192 mg/dL (80-110); HEMOLYSIS < 15 (0-50); Hemoglobin A1C% w Est Avg Glu 8.2 % (4.0-6.0); Potassium 4.6 mmol/L (3.4-5.1); Sodium 128 mmol/L (137-145)
[2023-03-12] MEDS: LEVOTHYROXINE 75 MCG TABLET PO (06:16)
[2023-03-12] MEDS: PANTOPRAZOLE 40 MG VIAL IV ×2 (08:38→20:46)
[2023-03-12] MEDS: ENOXAPARIN 30 MG/0.3 ML SYRINGE SUBCUT (08:38)
--- NOTE | 2023-03-12 10:46 | CM.DPC ---
DCP Cont. Reviewed EMR and team rounds for status updates. Met with pt/spouse at bedside to discuss d/c planning needs. This BUNGY JUMP MASTER provided the [facility] brochure, as well the the contact info for [facility] to obtain a new PCP. Spouse shares that they are going to wait until the beginning of the year 2023 once he has new insurance to establish with a new PCP. BUNGY JUMP MASTER encouraged them to keep the HH brochure, just in case she has any needs in the future. She is scheduled for a gallbladder scan on 03/13, after which she will either d/c or at the lastest, Thursday. Spouse will transport.
[2023-03-12] MEDS: ALBUTEROL 2.5 MG/3 ML NEB (ADULT) INH (13:23)
--- NOTE | 2023-03-12 14:26 | PM.PN.1 ---
Subjective Subjective Date Patient Seen: 03/12/23 Time Patient Seen: 08:00 Interval history: She was vomiting yesterday and last night. She does not have much pain currently. Exam Vital Signs (past 8 hours): - 03/12/23 08:33 03/12/23 12:00 03/12/23 13:24 Temperature 97.6 F 97.5 F L Pulse Rate 92 H 76 88 Respiratory Rate 20 19 18 Blood Pressure 146/77 H 158/92 H Pulse Oximetry 94 94 98 Oxygen Delivery Method Room Air Oxygen Flow Rate 0 0 0 Fraction of Inspired Oxygen 21 Fraction of Inspired Oxygen 21 SaO2/FiO2 Ratio 466 Oxygen Delivery Method Room Air Oxygen Flow Rate 0 Narrative Exam Narrative: GEN: no acute distress CV: regular rate and rhythm, no murmurs PULM: clear bilaerally ABD: soft, nontender EXT: warm and well perfused with no edema Objective Labs 03/12/23 04:58 03/12/23 04:58 Labs: Laboratory Results - last 24 hr 03/12/23 04:58 WBC 5.9 RBC 2.92 L Hgb 9.5 L Hct 27.9 L MCV 95.4 MCH 32.4 MCHC 33.9 RDW 17.8 H Plt Count 257 Sodium 128 L Potassium 4.6 Chloride 96 L Carbon Dioxide 27 BUN 23 H Creatinine 2.05 H Estimated GFR 25 L BUN/Creatinine Ratio 11.2 Glucose 192 H Hemoglobin A1c 8.2 H Calcium 9.4 PFSH Medical History (Updated 03/11/23 @ 03:40 by Kendrick Meza MD) Hypothyroidism GERD (gastroesophageal reflux disease) Chronic hypokalemia Hyperlipidemia Hypertension Type 2 diabetes mellitus Psoriasis Psoriatic arthritis Chronic kidney disease Social History household members: spouse Smoking Status: Former smoker alcohol intake: current substance use type: does not use Assessment & Plan Assessment and plan (1) Nausea and vomiting: Status: Acute Plan: -ordered CT abdomen for further eval which showed distended gallbladder, but otherwise she has no murphys sign, no fever, no leukocytosis, gb wall thickening so doubt infection, will order HIDA scan to rule out (2) GERD (gastroesophageal reflux disease): Status: Acute (3) Acute hyponatremia: Status: Acute Plan: Had 1 L of NS in ED due to GI losses (4) Acute hypokalemia: Status: Acute Plan: secondary to GI losses, continue repletion and check daily (5) Contusion of sternum: Qualifiers: Encounter type: initial encounter Qualified Code(s): S20.219A - Contusion of unspecified front wall of thorax, initial encounter Status: Acute Plan: Sustained on 02/19 when she bumped her chest wall Without obvious fractures Pain management - required iv small dose of narcotic as she was unable to hold anything down due to nausea (6) Hypertension: Status: Acute (7) Type 2 diabetes mellitus: Status: Acute Plan: Insulin dependent. Possible diabetic gastroparesis. Gastric emptying study to be considered if continues with frequent episodes of nausea / vomiting. - SS, Lantus, diabetic diet (8) Psoriatic arthritis: Problem details: On Remicade Status: Acute Plan: - missed Remicade dose few days ago (9) Chronic kidney disease: Status: Acute Plan: Likely stage 3B (10) Seizure: Status: Acute Plan: unclear if she had a seizure, no seizure history, and no symptoms currently head CT unremarkable monitor for any seizure activity and if observed will need to start medications, but hold off for now (11) Weakness: Status: Acute (12) Hypothyroidism: Status: Acute Plan: - on 75 mcg of Synthroid, TSH 13, repeat level, added T3/4
[2023-03-12] MEDS: ACETAMINOPHEN 325 MG TABLET 650 MG PO (15:32)
--- NOTE | 2023-03-12 16:29 | PC.NURSE ---
Pt had relatively uneventful day. Resting at intervals Med 1 1 w/tylenol for v=back/leg pain w/good relief. HL x 2 intact/patent. Call light w/in reach, spouse in room. Continue w/plan of care.
[2023-03-12] MEDS: INSULIN LISPRO 100 UNIT/ML 3ML VIAL SUBCUT (16:51)
[2023-03-13] VITALS (9 sets, daily range): BP systolic 142–186; BP diastolic 76–106; PULSE 88–106; RESP 16–19; TEMP 36.7–37.1; O2SAT 94–100
[2023-03-13] MEDS: LORazepam 2 MG/ML INJ 0.5 MG IV
[2023-03-13] MEDS: ACETAMINOPHEN 325 MG TABLET 650 MG PO
[2023-03-13] MEDS: METOPROLOL TARTRATE 5 MG/5 ML INJ IV (02:08)
[2023-03-13] MEDS: LEVOTHYROXINE 75 MCG TABLET PO (05:53)
[2023-03-13] MEDS: METOPROLOL IR 25 MG TABLET PO ×2 (07:47→20:32)
[2023-03-13] MEDS: ACETAMINOPHEN 325 MG TABLET 1000 MG PO (07:47)
--- NOTE | 2023-03-13 08:19 | PC.NURSE ---
Addendum entered by Zaira Levy R.N. 03/13/23 10:33: Patient is back from Hida scan, waiting to see what diet she is going to be put on after procedure results. Blood Sugar 194, will recheck at lunch. Original Note: Patient down for Hida Scan. Per tech, she will be gone for about 1 hour and a half. Patient slept well. Blood pressure 170/86. Metoprolol 25mg po given with 975mg of tylenol. 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
[2023-03-13] MEDS: PANTOPRAZOLE 40 MG VIAL IV ×2 (09:38→20:32)
[2023-03-13] MEDS: ENOXAPARIN 30 MG/0.3 ML SYRINGE SUBCUT (09:39)
[2023-03-13] MEDS: ALBUTEROL 2.5 MG/3 ML NEB (ADULT) INH ×2 (09:42→20:28)
[2023-03-13] MEDS: BUDESONIDE 0.5 MG/2 ML NEB INH ×2 (09:50→20:27)
[2023-03-13] MEDS: INSULIN LISPRO 100 UNIT/ML 3ML VIAL SUBCUT ×3 (11:50→20:34)
[2023-03-13 12:02] LABS: Add Manual Diff / Slide Review NO; Basophils Absolute Auto 100 /uL (0-100); Basophils Percent Auto 1.9 % (0-2); Eosinophils Absolute Auto 300 /uL (0-450); Eosinophils Percent Auto 5.6 % (2-4); Hematocrit 30.3 % (36-46); Hemoglobin 10.1 g/dL (12.0-16.0); Lymphocytes Absolute Auto 1400 /uL (1100-4500); Lymphocytes Percent Auto 27.6 % (25-40); Mean Corpuscular HGB Conc 33.4 % (30-36); Mean Corpuscular Hemoglobin 32.2 PG (26-34); Mean Corpuscular Volume 96.3 fL (80-100); Monocytes Absolute Auto 600 /uL (0-900); Monocytes Percent Auto 11.9 % (3-14); Neutrophils Absolute Auto 2800 /uL (1500-7000); Platelet Count 279 X10^3/uL (150-400); Red Blood Cell Count 3.14 X10^6/uL (4.0-5.2); Red Cell Distribution Width 17.6 % (11.6-14.8); White Blood Cell Count 5.3 X10^3/uL (4.5-11.0)
[2023-03-13 12:03] LABS: Alanine Aminotransferase 19 IU/L (<35); Albumin 3.2 g/dL (3.5-5.0); Albumin Globulin Ratio 0.9 (1.0-2.8); Alkaline Phosphatase 164 U/L (38-126); Aspartate Aminotransferase 29 IU/L (14-36); Bilirubin Total 0.5 mg/dL (0.2-1.3); Blood Urea Nitrogen 23 mg/dL (7-17); Calcium 9.8 mg/dL (8.4-10.2); Carbon Dioxide 30 mmol/L (22-32); Chloride 96 mmol/L (98-107); Estimated Glomerular Filt Rate 28 mL/min (>60); Globulin 3.6 g/dL (1.7-4.1); Glucose 220 mg/dL (80-110); HEMOLYSIS < 15 (0-50); Potassium 4.2 mmol/L (3.4-5.1); Sodium 130 mmol/L (137-145); Total Protein 6.8 g/dL (6.3-8.2)
[2023-03-13] MEDS: HYDROCODONE/ACET 5/325 TABLET 2 TAB PO ×2 (15:21→18:41)
--- NOTE | 2023-03-13 17:12 | PM.PN.1 ---
Subjective Subjective Interval history: Patient able to eat today, but still nauseous at times. We spoke about possibility of seizure, and patient would like to try antiseizure medication and see neurology as outpatient. Exam Vital Signs (past 8 hours): - 03/13/23 09:42 03/13/23 09:50 03/13/23 12:00 Temperature 98.1 F Pulse Rate 104 H 106 H 102 H Respiratory Rate 18 18 19 Blood Pressure 142/95 H Pulse Oximetry 95 97 Oxygen Delivery Method Room Air Room Air Oxygen Flow Rate 0 03/13/23 16:00 Temperature 98.7 F Pulse Rate 101 H Respiratory Rate 19 Blood Pressure 144/90 H Pulse Oximetry 99 Oxygen Delivery Method Oxygen Flow Rate 0 Fraction of Inspired Oxygen 21 SaO2/FiO2 Ratio 466 Oxygen Delivery Method Room Air Oxygen Flow Rate 0 Narrative Exam Narrative: GEN: no acute distress CV: regular rate and rhythm, no murmurs PULM: clear bilaerally ABD: soft, nontender EXT: warm and well perfused with no edema Objective Labs 03/13/23 11:43 03/13/23 11:43 Labs: Laboratory Results - last 24 hr 03/13/23 11:43 WBC 5.3 RBC 3.14 L Hgb 10.1 L Hct 30.3 L MCV 96.3 MCH 32.2 MCHC 33.4 RDW 17.6 H Plt Count 279 Neut % (Auto) 53.0 Lymph % (Auto) 27.6 [place] % (Auto) 11.9 Eos % (Auto) 5.6 H Baso % (Auto) 1.9 Neut # (Auto) 2800 Lymph # (Auto) 1400 [place] # (Auto) 600 Eos # (Auto) 300 Baso # (Auto) 100 Sodium 130 L Potassium 4.2 Chloride 96 L Carbon Dioxide 30 BUN 23 H Creatinine 1.91 H Estimated GFR 28 L BUN/Creatinine Ratio 12.0 Glucose 220 H Calcium 9.8 Total Bilirubin 0.5 AST 29 ALT 19 Alkaline Phosphatase 164 H Total Protein 6.8 Albumin 3.2 L Globulin 3.6 Albumin/Globulin Ratio 0.9 L PFSH Medical History (Updated 03/11/23 @ 03:40 by Kendrick Meza MD) Hypothyroidism GERD (gastroesophageal reflux disease) Chronic hypokalemia Hyperlipidemia Hypertension Type 2 diabetes mellitus Psoriasis Psoriatic arthritis Chronic kidney disease Social History household members: spouse Smoking Status: Former smoker alcohol intake: current substance use type: does not use Assessment & Plan Assessment and plan (1) Nausea and vomiting: Status: Acute Plan: -ordered CT abdomen for further eval which showed distended gallbladder, but otherwise she has no murphys sign, no fever, no leukocytosis, gb wall thickening so doubt infection -HIDA scan normal (2) GERD (gastroesophageal reflux disease): Status: Acute (3) Acute hyponatremia: Status: Acute Plan: Had 1 L of NS in ED due to GI losses (4) Acute hypokalemia: Status: Acute Plan: secondary to GI losses, continue repletion and check daily (5) Contusion of sternum: Qualifiers: Encounter type: initial encounter Qualified Code(s): S20.219A - Contusion of unspecified front wall of thorax, initial encounter Status: Acute Plan: Sustained on 02/19 when she bumped her chest wall Without obvious fractures Pain management - required iv small dose of narcotic as she was unable to hold anything down due to nausea (6) Hypertension: Status: Acute (7) Type 2 diabetes mellitus: Status: Acute Plan: Insulin dependent. Possible diabetic gastroparesis. Gastric emptying study to be considered if continues with frequent episodes of nausea / vomiting. - SS, Lantus, diabetic diet (8) Psoriatic arthritis: Problem details: On Remicade Status: Acute Plan: - missed Remicade dose few days ago (9) Chronic kidney disease: Status: Acute Plan: Likely stage 3B (10) Seizure: Status: Acute Plan: unclear if she had a seizure, no seizure history, and no symptoms currently head CT unremarkable given patient's describing 1-2 min of convulsions, biting tongue and a groggy post-ictal like state patient would like to start keppra start keppra 500mg BID and f/up with outpatient neurology (11) Weakness: Status: Acute (12) Hypothyroidism: Status: Acute Plan: - on 75 mcg of Synthroid, TSH 13, repeat level, added T3/4 Plan Dispo: Home on 03/14 likely.
[2023-03-13] MEDS: SODIUM CHLORIDE 0.9% FLUSH 10 ML IV (20:32)
[2023-03-13] MEDS: levETIRAcetam 250 MG TABLET 500 MG PO (20:32)
[2023-03-13] MEDS: NORTRIPTYLINE HCL 25 MG CAPSULE PO (22:32)
--- NOTE | 2023-03-13 23:14 | PC.NURSE ---
Patient is alert and oriented. Breath sounds CTA with RA sat of 100%. HRR w/telemetry reading of ST w/1st degree AVB and rate of 100. BP elevated at 164/76. Reports intermittent nausea but denied at time of assessment. Did reports achy/sharp pain in abdomen and left flank but reported improvement after having received vicodin just prior to shift change. BT present and abdomen is soft; reports having had BM earlier today. Denied dysuria with urination. Is able to move herself in bed. Due to weakness is assisted by spouse when needing to go to the bathroom and uses walker at home when spouse is unavailable. Agreeable to trying bilateral SCD's but did not tolerate them for more than a couple hours. Fall risk score is high but spouse is in rooming assisting patient and both agreeable to calling if assistance needed so alarm is not activated at this time.
[2023-03-14 00:19] VITALS: BP 164/69; PULSE 105; RESP 16; TEMP 36.8; O2SAT 96
[2023-03-14] MEDS: LORazepam 2 MG/ML INJ 0.5 MG IV (02:11)
[2023-03-14] MEDS: HYDROCODONE/ACET 5/325 TABLET 2 TAB PO ×3 (02:11→11:25)
[2023-03-14 04:23] VITALS: BP 147/63; PULSE 100; RESP 16; TEMP 36.6; O2SAT 97
[2023-03-14 06:09] LABS: Add Manual Diff / Slide Review NO; Basophils Absolute Auto 100 /uL (0-100); Basophils Percent Auto 1.3 % (0-2); Eosinophils Absolute Auto 200 /uL (0-450); Eosinophils Percent Auto 5.1 % (2-4); Hematocrit 26.1 % (36-46); Hemoglobin 8.8 g/dL (12.0-16.0); Lymphocytes Absolute Auto 1400 /uL (1100-4500); Lymphocytes Percent Auto 31.7 % (25-40); Mean Corpuscular HGB Conc 33.9 % (30-36); Mean Corpuscular Hemoglobin 32.5 PG (26-34); Mean Corpuscular Volume 95.9 fL (80-100); Monocytes Absolute Auto 700 /uL (0-900); Monocytes Percent Auto 14.5 % (3-14); Neutrophils Absolute Auto 2200 /uL (1500-7000); Neutrophils Percent Auto 47.4 % (50-75); Platelet Count 214 X10^3/uL (150-400); Red Blood Cell Count 2.72 X10^6/uL (4.0-5.2); Red Cell Distribution Width 16.9 % (11.6-14.8); White Blood Cell Count 4.5 X10^3/uL (4.5-11.0)
[2023-03-14] MEDS: LEVOTHYROXINE 75 MCG TABLET PO (06:12)
[2023-03-14 06:17] LABS: BUN Creatinine Ratio 12.5 (6-22); Blood Urea Nitrogen 23 mg/dL (7-17); Calcium 8.9 mg/dL (8.4-10.2); Carbon Dioxide 26 mmol/L (22-32); Chloride 100 mmol/L (98-107); Estimated Glomerular Filt Rate 29 mL/min (>60); Glucose 224 mg/dL (80-110); HEMOLYSIS < 15 (0-50); Potassium 4.2 mmol/L (3.4-5.1); Sodium 130 mmol/L (137-145)
[2023-03-14 08:00] VITALS: BP 132/51; PULSE 89; RESP 16; TEMP 36.3; O2SAT 100
[2023-03-14] MEDS: INSULIN LISPRO 100 UNIT/ML 3ML VIAL SUBCUT ×2 (08:06→12:00)
[2023-03-14] MEDS: hydrOXYzine pamoate 25 MG CAPSULE PO (08:06)
[2023-03-14] MEDS: PANTOPRAZOLE 40 MG VIAL IV (08:06)
[2023-03-14] MEDS: levETIRAcetam 250 MG TABLET 500 MG PO (08:06)
[2023-03-14] MEDS: METOPROLOL IR 25 MG TABLET PO (08:06)
[2023-03-14] MEDS: ENOXAPARIN 30 MG/0.3 ML SYRINGE SUBCUT (08:06)
[2023-03-14] MEDS: SODIUM CHLORIDE 0.9% FLUSH 10 ML IV (09:00)
--- NOTE | 2023-03-14 10:35 | PM.DS.1 ---
History of Present Illness History of Present Illness Date Patient Seen: 03/14/23 Time Patient Seen: 10:35 Chief complaint: AMS Narrative: Per admitting provider, 73 y/o with PMH of psoriatic artritis, asthma, HTN, HLD, developed generalized weakness 2 weeks ago, followed by frequent episodes of dizziness, nausea and vomiting- starting 1 week ago. On presentation to ED hypokalemic, hyponatremic. reported on likely seizure that happened prior to arrival when she was shaking head and both arms for about 1 minute and bit her tongue. In addition, presented with sternal pain, musculoskeletal, since her GLF 2 weeks ago when she hit her chest wall. She has a history of hypokalemia. In September, this year, she was seen in ED with similar complaints of several days of nausea, vomiting, and with hypokalemia. Discharge Providers Provider Date of admission: 03/10/23 01:18 Discharge Date: 03/14/23 Consults: 03/14/23 10:28 Consult to Physical Therapy Evaluate & Treat Comment: Physician Instructions: Evaluate and Treat Discharge provider: Fabrizio Mathias DO Summary Hospital Course Discharge Diagnosis: (1) Nausea and vomiting: (2) GERD (gastroesophageal reflux disease): (3) Acute hyponatremia, improved (4) Acute hypokalemia, improved (5) Contusion of sternum: (6) Hypertension: (7) Type 2 diabetes mellitus: (8) Psoriatic arthritis: (9) Chronic kidney disease, stage III (10) Seizure: (11) Weakness: (12) Hypothyroidism, chronic Hospital Course: This is a 73 year old female with PMH of DM, GERD, HTN, psoriatic arthritis, CKD III who presented with nausea and vomiting and concern for gallbladder disease. There was also concern for possible seizure and she was started on keppra without recurrence of any possible seizure activity. Nausea is of unclear etiology and improved with supportive care including IV fluids, electrolyte replacement (potassium) and antiemetics. Gallbladder was distended but HIDA scan was performed without evidence for biliary disease. Patient was tolerating a diet without difficulty on the day of discharge. She was seen by physical thearpy and cleared for discharge home. She was continued on keppra at discharge, and outpatient neurology follow up is recommended. No other changes to her home medications were recommended on discharge. Creatinine during her admission was around 1.7-2.1 over her stay, unknown baseline but likely indicates CKD stage III. Time Spent with Patient Time spent: Greater than 30 minutes Exam Vital Signs (past 8 hours): - 03/14/23 04:23 03/14/23 08:00 Temperature 97.9 F 97.3 F L Pulse Rate 100 H 89 Respiratory Rate 16 16 Blood Pressure 147/63 H 132/51 L Pulse Oximetry 97 100 Oxygen Flow Rate 0 Fraction of Inspired Oxygen 21 SaO2/FiO2 Ratio 466 Oxygen Delivery Method Room Air Oxygen Flow Rate 0 Narrative Exam Narrative: GEN: no acute distress CV: regular rate and rhythm, no murmurs PULM: clear bilaerally ABD: soft, nontender EXT: warm and well perfused with no edema Objective Labs 03/14/23 05:40 03/14/23 05:40 Labs: Laboratory Results - last 24 hr 03/13/23 03/14/23 11:43 05:40 WBC 5.3 4.5 RBC 3.14 L 2.72 L Hgb 10.1 L 8.8 L Hct 30.3 L 26.1 L MCV 96.3 95.9 MCH 32.2 32.5 MCHC 33.4 33.9 RDW 17.6 H 16.9 H Plt Count 279 214 Neut % (Auto) 53.0 47.4 L Lymph % (Auto) 27.6 31.7 Stoddard % (Auto) 11.9 14.5 H Eos % (Auto) 5.6 H 5.1 H Baso % (Auto) 1.9 1.3 Neut # (Auto) 2800 2200 Lymph # (Auto) 1400 1400 [place]ard # (Auto) 600 700 Eos # (Auto) 300 200 Baso # (Auto) 100 100 Sodium 130 L 130 L Potassium 4.2 4.2 Chloride 96 L 100 Carbon Dioxide 30 26 BUN 23 H 23 H Creatinine 1.91 H 1.84 H Estimated GFR 28 L 29 L BUN/Creatinine Ratio 12.0 12.5 Glucose 220 H 224 H Calcium 9.8 8.9 Total Bilirubin 0.5 AST 29 ALT 19 Alkaline Phosphatase 164 H Total Protein 6.8 Albumin 3.2 L Globulin 3.6 Albumin/Globulin Ratio 0.9 L PFSH Medical History (Updated 03/11/23 @ 03:40 by Kendrick Meza MD) Hypothyroidism GERD (gastroesophageal reflux disease) Chronic hypokalemia Hyperlipidemia Hypertension Type 2 diabetes mellitus Psoriasis Psoriatic arthritis Chronic kidney disease Social History household members: spouse Smoking Status: Former smoker alcohol intake: current substance use type: does not use Discharge Plan Discharge Plan Patient Disposition: Home Provider Discharge Comment: You were admitted to the hospital to further evaluate your gallbladder. Your nausea improved and studies showed that there was no problems with your gallbladder. You may have had a seizure, and were started on antiseizure medications. It is recommended you follow up with a neurologist as an outpatient. No other changes are recommended to your home medications. Discharge orders & Medications Prescriptions: New levetiracetam 500 mg tablet 500 mg PO BID 90 Days Qty: 180 0RF Continued colchicine 0.6 mg Tablet 0.6 mg PO BID Patient Comments: Patient no longer taking states it's making her sick. cinacalcet 30 mg Tablet 30 mg PO DAILY Patient Comments: Patient stopped taking, stating it's making her sick. potassium chloride 20 mEq Tablet,Er Particles/Crystals 20 meq PO BID Patient Comments: Patient stopped taking, stating it's making her sick. topiramate 100 mg Tablet 100 mg PO TID escitalopram oxalate 10 mg tablet 5 mg PO DAILY hydrochlorothiazide 12.5 mg tablet 12.5 mg PO DAILY Mag 64 64 mg tablet,delayed release (DR/EC) 64 mg PO DAILY hydrocodone-acetaminophen 5-325 mg tablet 1 tab PO Q4HR spironolacton-hydrochlorothiaz 25-25 mg Tablet 1 tab PO DAILY Patient Comments: Take by mouth for 7 days Novolin N NPH U-100 Insulin 100 unit/mL Suspension 45 unit SUBCUT QPM insulin aspart U-100 [Novolog FlexPen U-100 Insulin] 100 unit/mL Insulin Pen 4 - 10 unit SUBCUT QPM amlodipine 5 mg Tablet 5 mg PO DAILY nortriptyline 25 mg Capsule 25 mg PO BID (DME) insulin syringe-needle U-100 [BD Insulin Syringe] 0.3 mL 29 gauge x 1/2 Syringe fluticasone propion-salmeterol [Advair Diskus] 250-50 mcg/dose Blister With Device 1 inh INHALATION BID acebutolol 400 mg Capsule 400 mg PO DAILY levothyroxine [Synthroid] 75 mcg Tablet 75 mcg PO DAILY Patient Comments: Patient stopped taking, stating it's making her sick. albuterol sulfate [Ventolin HFA] 90 mcg/actuation Hfa Aerosol Inhaler 2 puff INHALATION Q4-6H PRN (Reason: Bronchodilation) rosuvastatin [Crestor] 40 mg Tablet 40 mg PO DAILY Patient Comments: Patient stopped taking, stating it's making her sick. fenofibrate nanocrystallized [Tricor] 48 mg Tablet 48 mg PO DAILY Patient Comments: Patient stopped taking, stating it's making her sick. omeprazole 20 mg Tablet,Delayed Release (Dr/Ec) 20 mg PO BID (DME) pen needle, diabetic [Unifine Pentips] 31 gauge x 5/16 Needle (DME) E-Z Spacer Spacer (DME) One Touchverio In Vitro Strip strip Diet/Activity/Treatments Diet: Diet as Tolerated and Low-sodium Activity: As tolerated, no restrictions Visit Report/Discharge Packet Instructions: DI for Hypokalemia, How to Prevent Falls, DI for Prescription Opioid Use Stand Alone Forms: Patient Portal/API, Stroke Signs & Symptoms
--- NOTE | 2023-03-14 12:14 | CM.DPNOTE ---
DC Note Patient returning to her RV w/spouse today, discharge orders completed by Dr Mathias. Provided patient with information on the Primary Care clinics at [facility] and the providers that are accepting new patients. Also provided a new patient packet for patient/spouse. Patient appreciative and eager to discharge today. States no further needs from this PROFESSOR OF FAMILY MEDICINE. JW
--- NOTE | 2023-03-14 12:27 | PT.IIE ---
Current Diagnoses Hypothyroidism, unspecified (03/10/23) Type 2 diabetes mellitus without complications (03/10/23) Hypoglycemia, unspecified (03/10/23) Hypo-osmolality and hyponatremia (03/10/23) Hypokalemia (03/10/23) Essential (primary) hypertension (03/10/23) Gastro-esophageal reflux disease without esophagitis (03/10/23) Arthropathic psoriasis, unspecified (03/10/23) Chronic kidney disease, unspecified (03/10/23) Nausea with vomiting, unspecified (03/10/23) Weakness (03/10/23) Unspecified convulsions (03/10/23) Contusion of unspecified front wall of thorax, initial encounter (03/10/23) Medical History (Last Updated 03/10/23 @ 05:49 by Kendrick Meza MD) Chronic hypokalemia Chronic kidney disease GERD (gastroesophageal reflux disease) Hyperlipidemia Hypertension Hypothyroidism Psoriasis Psoriatic arthritis Type 2 diabetes mellitus Physical Therapy Inpatient Evaluation/Re-Eval M1 PT/OT-IP Prior Functional Status Start: 03/14/23 12:03 Freq: NEEDED Status: Active Protocol: Document 03/14/23 12:03 AMB (Rec: 03/14/23 12:26 AMB [id number]) Medical Review Prior Functional Status Medical History Reviewed Yes Mobility and Gait Pt states she was not driving prior to hospital admission. Was using FWW in her home, tends to help a lot. Social History Household Members spouse Living Arrangements RV Number of Floors (Floors) One Floor Number of Stairs To Enter/Railing? 4-5 steps with 1 railing on the left when ascending Home Equipment Front Wheel Walker,Straight Cane Additional Social History Comment Pt's works outside the home during the day M2 PT-IP Current Condition Start: 03/14/23 12:03 Freq: NEEDED Status: Active Protocol: Document 03/14/23 12:03 AMB (Rec: 03/14/23 12:26 AMB [id number]) Physical Therapy Current Condition Current Condition Evaluation Date 03/14/23 Treatment Diagnosis altered mental status, dizziness Onset Date 03/09/23 M3 PT-IP Subjective Start: 03/14/23 12:03 Freq: NEEDED Status: Active Protocol: Document 03/14/23 12:03 AMB (Rec: 03/14/23 12:26 AMB [id number]) Subjective Physical Therapy Visit Type Type Initial Evaluation Visit Start Time 10:30 Visit Stop Time 11:00 Total Visit Minutes 30 Physical Therapy Visit Comments Patient Comments Pt has a hard time answering questions, her assists appropriately Therapy Pain Assessment Pain When Pain Assessed At Rest Pain Present Pain Present Pain Reported M4 PT-IP Mobility and Gait Start: 03/14/23 12:03 Freq: NEEDED Status: Active Protocol: Document 03/14/23 12:03 AMB (Rec: 03/14/23 12:26 AMB [id number]) PT-Bed Mobility Assessment Rolling Type of Rolling Roll to Right Level of Assist Independent Supine to Sit Supine to Sit Standby Assistance Sit to Supine Sit to Supine Standby Assistance Scooting Scooting to Edge of Bed Independent PT-Transfer Assessment Sit to and From Stand Sit to and from Stand Contact Guard Assistance Equipment Transfer Assistive Device Gait Belt,Front Wheeled Walker Transfers Transfer Destination Bed Transfer Technique Stand Step Pivot Transfer Ability Level of Assist Contact Guard Assistance Comments Mobility Comments Piper was independent with bed mobility, but needed CGA with a gait belt for safety with sit to stand. Instructed her in gait belt's usage. Gait Assessment Gait Gait Assistance Required: Contact Guard Assist Distance (Feet) 150 Assistive Devices Assistive Device Gait Belt,Front Wheeled Walker Gait Deviations General Gait Pattern Decreased Stride Length,Flexed Trunk Factors Limiting Gait Function Factors Limiting Gait Function Decreased Strength,Pain,Poor Balance Comments Gait Comments Piper has a slow gait pattern, but was able to ambulate safely with FWW and CGA. Stair Climbing Assessment Evaluation Level of Assist On Stairs Contact Guard Assistance,1 Person Assistance Devices Stair Climbing Assistive Devices Left Railing Technique/Endurance Stair Climbing Technique Step to Step Number of Steps Climbed 3 Query Text: Stair Climbing Set # Repetitions (reps) 1 Comments Stair Climbing Comments Piper is familiar with sidestepping up the stairs with one railing and was able to do this appropriately with CGA. PT-Balance Assessment Sitting Balance and Reactions Static Sitting Balance Ability Good Dynamic Sitting Balance Ability Fair Standing Balance and Reactions Static Standing Balance Ability Fair Dynamic Standing Balance Ability Fair M5 PT-IP Objective Assessments Start: 03/14/23 12:03 Freq: NEEDED Status: Active Protocol: Document 03/14/23 12:03 AMB (Rec: 03/14/23 12:26 AMB [id number]) Orientation Orientation/Cognition Comments Piper struggles to answer questions and needs extra time , sometimes seeming to be off topic Strength Lower Extremity Strength Assessment Bilaterally Impaired M7 PT-IP Assessment and Plan Start: 03/14/23 12:03 Freq: NEEDED Status: Active Protocol: Document 03/14/23 12:03 AMB (Rec: 03/14/23 12:26 AMB [id number]) PT Summary Assessment and Plan Potential Rehabilitation Potential Good Status of Condition at Evaluation Stable Summary Impairments Pain,Strength,Balance,Bed Mobility,Gait,Activity Tolerance Assessment Summary Piper is planning to d/c home today with her . Her states she has had 2 falls in the last 6 months, she was unable to answer that question, and is unable to explain why she falls. She was able to perform bed mobility independently and did well with sit to stand and gait of 150 feet with CGA and FWW. She was able to ascend and descend 3 steps with 1 railing and a sidestepping pattern with CGA. Instructed both Piper and her in walker usage and fitting, gait belt usage. Discussed that she does not currently have a PCP. Discussed that she spends most of her time sitting in their RV while her is working. Discussed the option of home health PT given her deconditioned state. The couple state that they will be getting new health insurance starting in April and expect to get started with a new PCP at that time, encouraged them to start calling now to get a new doctor. At this time she appears safe to return home with her , but she would certainly benefit from a PCP to help her manage her chronic health issues, could consider home health, but pt not interested at this time. Goals Bed Mobility Goal Independent Transfer Goal Standby Assistance Gait Goal Standby Assistance Gait Distance 200 Days to Meet Goals 1 Frequency of Treatment Frequency Of Treatment Discharge Treatment Plan Physical Therapy Treatment Plan Bed Mobility Training,Transfer Training,Gait Training Recommendations To Nursing Amount of Assist Needed 1 Person Assist Discharge Recommendations PT Discharge Recommendations Home with Assistance Transportation Needs at Discharge Private Vehicle
--- NOTE | 2023-03-14 13:12 | PC.NURSE ---
Day shift: Discharge instructions gone over with patient and patient's SO. All questions answered, they both stated understanding. PIV and tele d/c'ed prior to discharge. Pt finishing getting dressed and ready and then will d/c home with SO. Staff to escort patient via wheelchair to exit. All belongings with patient.
== END 2023-03-14 15:25 | disposition home or self-care (01) | DRG 73 ==
LOC: ED 22:30 → AC 03-10 07:10
PROVIDERS: Internal Medicine; Student in an Organized Health Care Education/Training Program; Admitting Provider Internal Medicine; Emergency Provider Emergency Medicine; Referring Provider Emergency Medicine; Visit Provider Internal Medicine
DX: E11.43 Type 2 diabetes mellitus with diabetic autonomic (poly)neuropathy (principal); E43 Unspecified severe protein-calorie malnutrition; E87.1 Hypo-osmolality and hyponatremia; D84.821 Immunodeficiency due to drugs; K31.84 Gastroparesis; S20.214A Contusion of middle front wall of thorax, initial encounter; W18.30XA Fall on same level, unspecified, initial encounter; L40.50 Arthropathic psoriasis, unspecified; R56.9 Unspecified convulsions; E03.9 Hypothyroidism, unspecified; E11.22 Type 2 diabetes mellitus with diabetic chronic kidney disease; I12.9 Hypertensive chronic kidney disease with stage 1 through stage 4 chronic kidney disease, or unspecified chronic kidney disease; N18.32 Chronic kidney disease, stage 3b; E11.649 Type 2 diabetes mellitus with hypoglycemia without coma; K21.9 Gastro-esophageal reflux disease without esophagitis; E78.5 Hyperlipidemia, unspecified; Z79.4 Long term (current) use of insulin; Z87.891 Personal history of nicotine dependence; Z68.25 Body mass index [BMI] 25.0-25.9, adult; Z79.69 Long term (current) use of other immunomodulators and immunosuppressants
CPT/HCPCS: 0241U; 36415; 70450; 71046; 74176; 76705; 78227; 80048; 80053; 81003; 81015; 82550; 82947; 82962; 83036; 83690; 83735; 83880; 84132; 84145; 84436; 84439; 84443; 84484; 85025; 85027; 87077; 87086; 87186; 87633; 93005; 93010; 94640; 94762; 96365; 96366; 96375; 97161; 99284; A9537; C9113; J0780; J1170; J1650; J1815; J2060; J2270; J2805; J3475; J7613

== ENCOUNTER 2023-07-29 12:11 | Emergency (ER) | payer MEDICARE, OTHER, SELFPAY ==
[2023-03-10 02:06] VITALS: BMI 25.1
[2023-07-29] VITALS (57 sets, daily range): BP systolic 92–135; BP diastolic 54–73; PULSE 88–99; RESP 9–26; TEMP 36.4–37.1; O2SAT 92–100; BMI 22.6
--- NOTE | 2023-07-29 12:47 | DI.CT.S_ITS ---
PROCEDURE: CT CHEST ABD PEL WO CON INDICATIONS: T/L back injury/deformity 7D FOREIGN CORRESPONDENT+N/V/weightloss/dizzy 2mo TECHNIQUE: After the administration of oral contrast, 5 mm thick sections acquired from the lung apices to the symphysis pubis. 5 mm thick coronal and sagittal reformats acquired, with additional 7 mm coronal MIP reformats through the lungs. For radiation dose reduction, the following was used: automated exposure control, adjustment of mA and/or kV according to patient size. COMPARISON: [facility], CT, CT CHEST WO CON, 10/28/2019, 15:41. [facility], CT, CT ABDOMEN PELVIS WO CON, 03/10/2023, 15:55. FINDINGS: Image quality: Diagnostic. CHEST: Lower Neck: No enlarged lymph nodes. Thyroid: No thyroid nodules which require sonographic follow up, per consensus guidelines. Axillae: No enlarged lymph nodes. Chest Wall: Unremarkable. Bones: Unremarkable. Lungs and Pleura: Small left pleural effusion with adjacent atelectasis versus consolidation. Biapical pleuroparenchymal scarring. No focal pulmonary consolidations. Scattered pulmonary nodules measuring up to 5 mm are stable compared to prior. Heart: Heart size is normal. Moderate to severe coronary artery calcifications. Trace pericardial effusion. Thoracic Vessels: The aorta and pulmonary arteries demonstrate normal size. Atherosclerotic vascular calcifications. Mediastinum and Lisa: No enlarged lymph nodes. Esophagus: No wall thickening. Small hiatal hernia. ABDOMEN: Liver: No solid mass. Decreased in attenuation, consistent with hepatic steatosis. Gallbladder: Gallbladder is distended. No gallstones or gallbladder wall thickening. No evidence of inflammation. Biliary ducts: No biliary dilation. Pancreas: No ductal dilation. Spleen: Size is within normal limits. Adrenal Glands: No adrenal nodules. Kidneys and Ureters: Nonobstructing 3 mm left renal calcification. Simple appearing renal cysts. No hydronephrosis. No solid mass. No complex renal cystic lesion which requires follow up. Stomach and Bowel: Normal colonic caliber, without significant wall thickening. Diverticulosis without evidence of acute diverticulitis. Normal appendix. Peritoneum: No abnormal intraperitoneal fluid. No free air. Ventral Wall: No hernia. Anasarca. Abdominal Nodes: No retroperitoneal or mesenteric adenopathy by size criteria. Vessels: Aorta and inferior vena cava are normal in size. Atherosclerotic vascular calcifications. PELVIS: Pelvic Organs: Unremarkable. Bladder: Decompressed, limiting evaluation. Pelvic Nodes: No enlarged lymph nodes. Miscellaneous: No inguinal hernias are seen. Bones: Severe anterior wedge compression deformity of T11. No aggressive osseous abnormality. Diffusely decreased osseous mineralization. Multilevel degenerative changes of the spine. Healing fracture deformity of the inferior sternum. IMPRESSION: 1. Severe anterior wedge compression deformity of T11 with mild retropulsion resulting in mild central canal stenosis. 2. Scattered pulmonary nodules measuring up to 5 mm are stable compared to prior. 3. Moderate to severe coronary artery calcifications. 4. Gallbladder is distended. No gallstones or evidence of gallbladder wall inflammation. 5. Nonobstructing 3 mm left renal stone. 6. Mild anasarca. 7. Diverticulosis without evidence of acute diverticulitis. 8. Healing fracture deformity of the inferior sternum. Dictated by: Fahad Barr M.D. on 07/29/2023 at 14:25 Approved by: Fahad Barr M.D. on 07/29/2023 at 14:35
--- NOTE | 2023-07-29 12:52 | ED.FALL ---
HPI - Fall <Demetra Cole PA-C - Last Filed: 07/29/23 19:47> General Chief Complaint: Fall Stated Complaint: Back Pain post Fall Time Seen by Provider: 07/29/23 12:37 Source: patient, family and EMS Mode of arrival: EMS History of Present Illness HPI Narrative: 74-year-old female presents brought in by EMS for fall 7 days ago with worsening back pain history of GERD, hypokalemia, hyponatremia, CKD, type 2 diabetes hypertension, psoriatic arthritis, hyperlipidemia, hypothyroid and pancytopenia; ambulates with cane at baseline. Patient states that she fell 7 days ago she was reaching for something from a shelf while standing lost her balance and fell backwards landing on her mid back. She describes her back pain as sharp mid back and 9/10, worse with movements. She states she landed on the tile floor ?very hard?. Did not lose consciousness or hit her head denies neck pain. Since that time she has been primarily staying in a recliner and her has lifted her and assisted her onto a commode next to the recliner when she needs the bathroom. She has been eating and drinking very little and states the pain has gradually been increasing throughout the past 7 days and became so severe they called 911 today. She has been taking Excedrin with limited relief; and occasionally Hydrocodone. She and her also endorse that she has had 100 lb weight loss in the past year, additionally in the last 2 months she has had decreased appetite and nausea and frequent vomiting; she has been taking her medications inconsistently except for her blood pressure medication. She stopped taking many of her medications in the last few months because they make her nauseous and or vomit. Eating also does the same. Over the last 2 months she has also been dealing with dizziness. They state that she has seen her doctor or ?various doctors? in the past year but none in the past few months since these symptoms of nausea and vomiting and dizziness have begun. They do not check her blood pressures at home but she does take her acebutolol when they find her heart rate is over 100 on pulse ox. She takes her hctz when her ankles look puffy. Patient's and patient state that she pretty much never uses insulin or medications for her diabetes, she checks her blood sugars occasionally and finds them to be sometimes in the 400s and sometimes under 100 this can happen on the same day. Patient denies any dark or bloody stool, abdominal pain, pelvic pain, chest pain, shortness of breath, swelling of ankles, new or one-sided weakness, dysuria, hematuria, or any other symptoms. She states she has not had much in the way of bowel movements for the past week but has eaten very little, she also has not been peeing very much and has not been drinking much. Related Data Home Medications Medication Instructions Recorded Confirmed One Touchverio In Vitro Strip 04/16/18 03/10/23 acebutolol 400 mg capsule 400 mg PO DAILY 04/16/18 03/10/23 albuterol sulfate 90 mcg/actuation 2 puff inhalation Q4-6H PRN 04/16/18 03/10/23 aerosol inhaler (Ventolin HFA) Bronchodilation amlodipine 5 mg tablet 5 mg PO DAILY 04/16/18 03/10/23 fenofibrate nanocrystallized 48 mg 48 mg PO DAILY 04/16/18 03/10/23 tablet (Tricor) fluticasone 250 mcg-salmeterol 50 1 inh inhalation BID 04/16/18 03/10/23 mcg/dose blistr powdr for inhalation (Advair Diskus) inhalational spacing device (E-Z 04/16/18 03/10/23 Spacer) insulin NPH isoph U-100 human 100 45 unit SUBCUT QPM 04/16/18 03/10/23 unit/mL subcutaneous suspension (Novolin N NPH U-100 Insulin isophane) insulin aspart U-100 100 unit/mL 4 - 10 unit SUBCUT QPM 04/16/18 03/10/23 (3 mL) subcutaneous pen (Novolog FlexPen U-100 Insulin aspart) insulin syringe-needle U-100 0.3 04/16/18 03/10/23 mL 29 gauge x 1/2 (BD Insulin Syringe) levothyroxine 75 mcg tablet 75 mcg PO DAILY 04/16/18 03/10/23 (Synthroid) nortriptyline 25 mg capsule 25 mg PO BID 04/16/18 03/10/23 omeprazole 20 mg tablet,delayed 20 mg PO BID 04/16/18 03/10/23 release pen needle, diabetic 31 gauge x 04/16/18 03/10/23 5/16 (Unifine Pentips) rosuvastatin 40 mg tablet (Crestor) 40 mg PO DAILY 04/16/18 03/10/23 spironolactone 25 1 tab PO DAILY 04/16/18 03/10/23 mg-hydrochlorothiazide 25 mg tablet cinacalcet 30 mg tablet 30 mg PO DAILY 03/10/23 03/10/23 colchicine 0.6 mg tablet 0.6 mg PO BID 03/10/23 03/10/23 escitalopram oxalate 10 mg tablet 5 mg PO DAILY 03/10/23 03/10/23 hydrochlorothiazide 12.5 mg tablet 12.5 mg PO DAILY 03/10/23 03/10/23 hydrocodone 5 mg-acetaminophen 325 1 tab PO Q4HR 03/10/23 03/10/23 mg tablet magnesium chloride 64 mg 64 mg PO DAILY 03/10/23 03/10/23 (magnesium chloride) tablet,delayed release (Mag 64) potassium chloride 20 mEq 20 meq PO BID 03/10/23 03/10/23 tablet,extended release(part/cryst) topiramate 100 mg tablet 100 mg PO TID 03/10/23 03/10/23 Allergies Allergy/AdvReac Type Severity Reaction Status Date / Time Penicillins Allergy Severe Difficulty Verified 07/29/23 12:30 Breathing Patient History <Demetra Cole PA-C - Last Filed: 07/29/23 19:47> Medical History (Updated 07/29/23 @ 18:42 by Sarah Cramer RN) Hypothyroidism GERD (gastroesophageal reflux disease) Chronic hypokalemia Hyperlipidemia Hypertension Type 2 diabetes mellitus Psoriasis Psoriatic arthritis Chronic kidney disease Social History household members: spouse Smoking Status: Former smoker alcohol intake: current substance use type: does not use Smoking Status: Former smoker alcohol intake frequency: a few times a week Substance Use Type: does not use Exam <Demetra Cole PA-C - Last Filed: 07/29/23 19:47> Narrative Exam Narrative: GENERAL: [74] year old patient appears stated age. Chronically ill-appearing patient, in mild distress. HEAD: Atraumatic. Normocephalic. EYES: Pupils equal round and reactive. Extraocular motions intact. No scleral icterus. No injection or drainage. ENT: Nose without bleeding, purulent drainage. Mucous membranes are moist. Throat without erythema, tonsillar hypertrophy or exudate. Airway patent. NECK: Trachea midline. Non tender; no lymphadenopathy. CARDIOVASCULAR: Regular rate and rhythm without murmurs, gallops, or rubs. RESPIRATORY: Clear to auscultation. Breath sounds equal bilaterally. No wheezes, rales, or rhonchi. GASTROINTESTINAL: Abdomen soft, mild tenderness at R flank/side, consistent with muscle tenderness vs liver; negative murphys sign, negative mcburney's point tenderness; otherwise non-tender, nondistended. EXTREMITIES: No edema or joint tenderness; distal pulses intact x 4; equal assistant restaurant general manager 4/5 bilaterally, 5/5 equal strength with dorsiflexion/plantar flexion; active flexion at the hip/ knee increases back pain. BACK: There is no midline spinous process tenderness deformity or step-off of the C-spine, nor of the upper thoracic spine however at proximally T 10-12 and L1 to patient has new versus chronic deformity with tenderness present midline, some mild left flank tenderness, no bruising of back or flanks noted, there is a superficial skin abrasion at approximately T 11. No crepitance noted. Patient's spine has kyphosis of the thoracic spine and also appears to have scoliosis/spine curvature Otherwise Nontender without deformity or crepitance. No flank tenderness. NEURO: AOx3. SKIN: very pale appearing, No rash or erythema of visible areas Initial Vital Signs Initial Vital Signs: Vital Signs Temperature 97.6 F 07/29/23 12:30 Pulse Rate 96 H 07/29/23 12:30 Respiratory Rate 16 07/29/23 12:30 Blood Pressure 100/55 L 07/29/23 12:30 Pulse Oximetry 100 07/29/23 12:30 Oxygen Delivery Method Room Air 07/29/23 12:30 <Sobia Charles MD - Last Filed: 07/31/23 20:36> Initial Vital Signs Initial Vital Signs: Vital Signs Temperature 97.6 F 07/29/23 12:30 Pulse Rate 96 H 07/29/23 12:30 Respiratory Rate 16 07/29/23 12:30 Blood Pressure 100/55 L 07/29/23 12:30 Pulse Oximetry 100 07/29/23 12:30 Oxygen Delivery Method Room Air 07/29/23 12:30 Course <Demetra Cole PA-C - Last Filed: 07/29/23 19:47> Course Course Narrative: Spoke with diagnostic imaging, patient has CMP came back showing that her kidney function is quite poor with a GFR of 15, we will do a noncontrast CT today. 1327 Initiating Mg 2g over 5 hrs; lower dose given DARIN. 1407 Spoke with the patient and her and updated them regarding the labs and information we have back so far and anticipated transfer. Counseled them as to the reason for placing a Ibrahim catheter to monitor urine output, discussed patient's pain she has been tolerating it well especially with not moving however still endorses a 12/28 we will begin treating this and try low dose given her lower pressures 25 mcg fentanyl and see how she does with this. All questions answered. 1420 Discussed the ABG results with Dr. Charles will not initiate bicarb at this time based on these results will talk to Nephrology 1st, also requested initiate plan for transfer to [facility] or [facility] depending on availability of beds/nephrology pertinent handed off care to Dr. Charles who remains on shift in the main emergency department. 1521 Decision to Admit Date: 07/29/23 Decision to Admit time: 13:45 Additional Information: Anticipate transfer this for this patient who is in kidney failure, suspect acidosis 2nd to this, also with elevated coags. Awaiting imaging. Orders Ordered: Discontinued Medications Fentanyl (Fentanyl 100 Mcg/2 Ml Inj) 25 mcg IV NOW ONE Stop: 07/29/23 14:20 Last Admin: 07/29/23 14:29 Dose: 25 mcg Documented By: FELI Fentanyl (Fentanyl 100 Mcg/2 Ml Inj) 50 mcg IV NOW ONE Stop: 07/29/23 17:57 Last Admin: 07/29/23 18:00 Dose: 50 mcg Documented By: JUSTO Sodium Chloride (Normal Saline 0.9%) 1,000 mls @ 500 mls/hr IV BOLUS ONE Stop: 07/29/23 14:36 Last Infusion: 07/29/23 17:23 Dose: Infused Documented By: Admin: 07/29/23 13:46 Dose: 500 mls/hr Documented By: FELI Sodium Chloride (Normal Saline 0.9%) 1,000 mls @ 125 mls/hr IV CONT WERNER Last Infusion: 07/29/23 18:35 Dose: 125 mls/hr Documented By: Infusion: 07/29/23 18:33 Dose: 0 mls/hr Documented By: Infusion: 07/29/23 18:31 Dose: 125 mls/hr Documented By: Infusion: 07/29/23 18:30 Dose: 125 mls/hr Documented By: Admin: 07/29/23 14:57 Dose: 125 mls/hr Documented By: FELI Sodium Chloride (Normal Saline 0.9%) 1,000 mls @ 500 mls/hr IV BOLUS ONE Stop: 07/29/23 15:58 Last Infusion: 07/29/23 18:31 Dose: Infused Documented By: Admin: 07/29/23 16:26 Dose: 500 mls/hr Documented By: JUSTO Magnesium Sulfate (Magnesium Sulfate) 2 gm in 50 mls @ 10 mls/hr IV NOW ONE Stop: 07/29/23 19:01 Last Infusion: 07/29/23 18:30 Dose: Infused Documented By: JUSTO Co-signed By: SAUL Admin: 07/29/23 14:27 Dose: 10 mls/hr Documented By: FELI Co-signed By: SAUL Ondansetron HCl (Ondansetron 4 Mg/2 Ml Inj) 4 mg IV NOW ONE Stop: 07/29/23 12:38 Last Admin: 07/29/23 13:44 Dose: 4 mg Documented By: FELI Ondansetron HCl (Ondansetron 4 Mg/2 Ml Inj) 4 mg IV NOW ONE Stop: 07/29/23 17:12 Last Admin: 07/29/23 17:43 Dose: 4 mg Documented By: JUSTO Potassium Chloride (Potassium Chloride 20 Meq Tab) 40 meq PO NOW ONE Stop: 07/29/23 16:05 Last Admin: 07/29/23 16:44 Dose: Not Given Documented By: JUSTO Potassium Chloride (Potassium Chloride 20 Meq/15 Ml Udc) 40 meq PO NOW ONE Stop: 07/29/23 16:55 Last Admin: 07/29/23 17:03 Dose: 40 meq Documented By: JUSTO Vital Signs Vital signs: Vital Signs - 8 hr 07/29/23 12:30 07/29/23 13:02 07/29/23 13:41 Temperature 97.6 F Pulse Rate 96 H 98 H 92 H Respiratory Rate 16 18 Blood Pressure 100/55 L 103/57 L Pulse Oximetry 100 100 95 Oxygen Delivery Method Room Air Room Air 07/29/23 13:41 07/29/23 13:46 07/29/23 13:46 Temperature Pulse Rate 92 H Respiratory Rate Blood Pressure 107/59 L 92/57 L Pulse Oximetry 100 Oxygen Delivery Method 07/29/23 13:50 07/29/23 13:55 07/29/23 14:00 Temperature Pulse Rate 89 89 89 Respiratory Rate 13 11 L 14 Blood Pressure Pulse Oximetry 100 100 100 Oxygen Delivery Method 07/29/23 14:00 07/29/23 14:05 07/29/23 14:10 Temperature Pulse Rate 88 89 Respiratory Rate 9 L 9 L Blood Pressure 102/57 L Pulse Oximetry 100 100 Oxygen Delivery Method 07/29/23 14:15 07/29/23 14:15 07/29/23 14:20 Temperature Pulse Rate 91 H 91 H Respiratory Rate 18 17 Blood Pressure 102/54 L Pulse Oximetry 99 100 Oxygen Delivery Method 07/29/23 14:20 07/29/23 14:25 07/29/23 14:25 Temperature Pulse Rate 91 H Respiratory Rate 15 Blood Pressure 102/59 L 110/58 L Pulse Oximetry 100 Oxygen Delivery Method 07/29/23 14:30 07/29/23 14:30 07/29/23 14:35 Temperature Pulse Rate 90 91 H Respiratory Rate 13 10 L Blood Pressure 106/57 L Pulse Oximetry 99 99 Oxygen Delivery Method 07/29/23 14:35 07/29/23 14:40 07/29/23 14:40 Temperature Pulse Rate 92 H Respiratory Rate 13 Blood Pressure 109/55 L 105/59 L Pulse Oximetry 92 Oxygen Delivery Method 07/29/23 14:45 07/29/23 14:45 07/29/23 14:50 Temperature Pulse Rate 92 H 92 H Respiratory Rate 17 12 Blood Pressure 102/57 L Pulse Oximetry 100 100 Oxygen Delivery Method 07/29/23 14:50 07/29/23 14:55 07/29/23 14:55 Temperature Pulse Rate 92 H Respiratory Rate 12 Blood Pressure 106/60 109/58 L Pulse Oximetry 100 Oxygen Delivery Method 07/29/23 15:00 07/29/23 15:00 07/29/23 15:05 Temperature Pulse Rate 92 H 92 H Respiratory Rate 15 14 Blood Pressure 117/59 L Pulse Oximetry 100 100 Oxygen Delivery Method 07/29/23 15:05 07/29/23 15:10 07/29/23 15:10 Temperature Pulse Rate 92 H Respiratory Rate 20 Blood Pressure 114/57 L 109/58 L Pulse Oximetry 100 Oxygen Delivery Method 07/29/23 15:15 07/29/23 15:16 07/29/23 15:16 Temperature Pulse Rate 93 H 95 H Respiratory Rate 17 16 Blood Pressure 117/54 L Pulse Oximetry 100 99 Oxygen Delivery Method 07/29/23 15:20 07/29/23 15:20 07/29/23 15:25 Temperature Pulse Rate 93 H 92 H Respiratory Rate 13 13 Blood Pressure 115/57 L Pulse Oximetry 100 100 Oxygen Delivery Method 07/29/23 15:25 07/29/23 15:30 07/29/23 15:30 Temperature Pulse Rate 91 H Respiratory Rate 9 L Blood Pressure 113/59 L 117/56 L Pulse Oximetry 100 Oxygen Delivery Method 07/29/23 15:35 07/29/23 15:35 07/29/23 15:40 Temperature Pulse Rate 91 H 91 H Respiratory Rate 9 L 10 L Blood Pressure 116/58 L Pulse Oximetry 100 100 Oxygen Delivery Method 07/29/23 15:40 07/29/23 15:45 07/29/23 15:45 Temperature Pulse Rate 91 H Respiratory Rate 9 L Blood Pressure 118/55 L 113/55 L Pulse Oximetry 100 Oxygen Delivery Method 07/29/23 15:50 07/29/23 15:50 07/29/23 15:55 Temperature Pulse Rate 92 H 92 H Respiratory Rate 11 L 14 Blood Pressure 112/58 L Pulse Oximetry 100 100 Oxygen Delivery Method 07/29/23 15:55 07/29/23 16:00 07/29/23 16:00 Temperature Pulse Rate 91 H Respiratory Rate 10 L Blood Pressure 114/56 L 113/58 L Pulse Oximetry 100 Oxygen Delivery Method 07/29/23 16:05 07/29/23 16:05 07/29/23 16:10 Temperature Pulse Rate 91 H Respiratory Rate 12 Blood Pressure 118/58 L 114/57 L Pulse Oximetry 100 Oxygen Delivery Method 07/29/23 16:10 07/29/23 16:15 07/29/23 16:15 Temperature Pulse Rate 91 H 91 H Respiratory Rate 10 L 14 Blood Pressure 107/55 L Pulse Oximetry 99 100 Oxygen Delivery Method Room Air 07/29/23 16:20 07/29/23 16:20 07/29/23 16:25 Temperature Pulse Rate 91 H 91 H Respiratory Rate 10 L 10 L Blood Pressure 110/59 L Pulse Oximetry 100 100 Oxygen Delivery Method 07/29/23 16:25 07/29/23 16:30 07/29/23 16:30 Temperature Pulse Rate 93 H Respiratory Rate 26 H Blood Pressure 109/56 L 107/59 L Pulse Oximetry 100 Oxygen Delivery Method 07/29/23 16:35 07/29/23 16:35 07/29/23 16:40 Temperature Pulse Rate 96 H 93 H Respiratory Rate 11 L 9 L Blood Pressure 111/59 L Pulse Oximetry 100 100 Oxygen Delivery Method 07/29/23 16:40 07/29/23 16:45 07/29/23 16:45 Temperature Pulse Rate 92 H Respiratory Rate 10 L Blood Pressure 117/56 L 114/55 L Pulse Oximetry 100 Oxygen Delivery Method 07/29/23 16:50 07/29/23 16:50 07/29/23 16:55 Temperature Pulse Rate 95 H 95 H Respiratory Rate 12 11 L Blood Pressure 119/57 L Pulse Oximetry 100 100 Oxygen Delivery Method 07/29/23 16:55 07/29/23 17:00 07/29/23 17:00 Temperature Pulse Rate 93 H Respiratory Rate 12 Blood Pressure 121/59 L 113/61 Pulse Oximetry 100 Oxygen Delivery Method Room Air 07/29/23 17:05 07/29/23 17:05 07/29/23 17:10 Temperature Pulse Rate 95 H 98 H Respiratory Rate 13 16 Blood Pressure 121/62 Pulse Oximetry 100 Oxygen Delivery Method 07/29/23 17:10 07/29/23 17:15 07/29/23 17:15 Temperature Pulse Rate 99 H Respiratory Rate 12 Blood Pressure 126/72 135/73 Pulse Oximetry Oxygen Delivery Method 07/29/23 17:20 07/29/23 17:21 07/29/23 17:21 Temperature Pulse Rate 98 H 99 H Respiratory Rate 20 18 Blood Pressure 123/73 Pulse Oximetry Oxygen Delivery Method 07/29/23 17:25 07/29/23 17:25 07/29/23 17:30 Temperature Pulse Rate 98 H 97 H Respiratory Rate 15 25 H Blood Pressure 129/69 Pulse Oximetry Oxygen Delivery Method 07/29/23 17:30 07/29/23 17:35 07/29/23 17:35 Temperature Pulse Rate 97 H Respiratory Rate 15 Blood Pressure 125/58 L 119/58 L Pulse Oximetry Oxygen Delivery Method 07/29/23 17:40 07/29/23 17:40 07/29/23 17:45 Temperature Pulse Rate 94 H 94 H Respiratory Rate 21 12 Blood Pressure 117/61 Pulse Oximetry Oxygen Delivery Method 07/29/23 17:45 07/29/23 17:50 07/29/23 17:50 Temperature 98.7 F Pulse Rate 93 H Respiratory Rate Blood Pressure 110/59 L 121/60 Pulse Oximetry Oxygen Delivery Method 07/29/23 17:55 07/29/23 17:55 07/29/23 18:00 Temperature Pulse Rate 94 H Respiratory Rate 13 Blood Pressure 117/59 L 129/61 Pulse Oximetry Oxygen Delivery Method 07/29/23 18:00 Temperature Pulse Rate 96 H Respiratory Rate 15 Blood Pressure Pulse Oximetry Oxygen Delivery Method <Sobia Charles MD - Last Filed: 07/31/23 20:36> Course Course Narrative: Spoke with diagnostic imaging, patient has CMP came back showing that her kidney function is quite poor with a GFR of 15, we will do a noncontrast CT today. 1327 Initiating Mg 2g over 5 hrs; lower dose given DARIN. 1407 Spoke with the patient and her and updated them regarding the labs and information we have back so far and anticipated transfer. Counseled them as to the reason for placing a Ibrahim catheter to monitor urine output, discussed patient's pain she has been tolerating it well especially with not moving however still endorses a 12/28 we will begin treating this and try low dose given her lower pressures 25 mcg fentanyl and see how she does with this. All questions answered. 1420 Discussed the ABG results with Dr. Charles will not initiate bicarb at this time based on these results will talk to Nephrology 1st, also requested initiate plan for transfer to [facility] or [facility] depending on availability of beds/nephrology pertinent handed off care to Dr. Charles who remains on shift in the main emergency department. 1521 Patient's case accepted for outside hospital. Patient remained hemodynamically stable, no new complaints. Orders Ordered: Discontinued Medications Fentanyl (Fentanyl 100 Mcg/2 Ml Inj) 25 mcg IV NOW ONE Stop: 07/29/23 14:20 Last Admin: 07/29/23 14:29 Dose: 25 mcg Documented By: FELI Fentanyl (Fentanyl 100 Mcg/2 Ml Inj) 50 mcg IV NOW ONE Stop: 07/29/23 17:57 Last Admin: 07/29/23 18:00 Dose: 50 mcg Documented By: JUSTO Sodium Chloride (Normal Saline 0.9%) 1,000 mls @ 500 mls/hr IV BOLUS ONE Stop: 07/29/23 14:36 Last Infusion: 07/29/23 17:23 Dose: Infused Documented By: Admin: 07/29/23 13:46 Dose: 500 mls/hr Documented By: FELI Sodium Chloride (Normal Saline 0.9%) 1,000 mls @ 125 mls/hr IV CONT WERNER Last Infusion: 07/29/23 18:35 Dose: 125 mls/hr Documented By: Infusion: 07/29/23 18:33 Dose: 0 mls/hr Documented By: Infusion: 07/29/23 18:31 Dose: 125 mls/hr Documented By: Infusion: 07/29/23 18:30 Dose: 125 mls/hr Documented By: Admin: 07/29/23 14:57 Dose: 125 mls/hr Documented By: FELI Sodium Chloride (Normal Saline 0.9%) 1,000 mls @ 500 mls/hr IV BOLUS ONE Stop: 07/29/23 15:58 Last Infusion: 07/29/23 18:31 Dose: Infused Documented By: Admin: 07/29/23 16:26 Dose: 500 mls/hr Documented By: JUSTO Magnesium Sulfate (Magnesium Sulfate) 2 gm in 50 mls @ 10 mls/hr IV NOW ONE Stop: 07/29/23 19:01 Last Infusion: 07/29/23 18:30 Dose: Infused Documented By: JUSTO Co-signed By: SAUL Admin: 07/29/23 14:27 Dose: 10 mls/hr Documented By: FELI Co-signed By: SAUL Ondansetron HCl (Ondansetron 4 Mg/2 Ml Inj) 4 mg IV NOW ONE Stop: 07/29/23 12:38 Last Admin: 07/29/23 13:44 Dose: 4 mg Documented By: FELI Ondansetron HCl (Ondansetron 4 Mg/2 Ml Inj) 4 mg IV NOW ONE Stop: 07/29/23 17:12 Last Admin: 07/29/23 17:43 Dose: 4 mg Documented By: JUSTO Potassium Chloride (Potassium Chloride 20 Meq Tab) 40 meq PO NOW ONE Stop: 07/29/23 16:05 Last Admin: 07/29/23 16:44 Dose: Not Given Documented By: JUSTO Potassium Chloride (Potassium Chloride 20 Meq/15 Ml Udc) 40 meq PO NOW ONE Stop: 07/29/23 16:55 Last Admin: 07/29/23 17:03 Dose: 40 meq Documented By: JUSTO Vital Signs Vital signs: Vital Signs - 8 hr 07/29/23 12:30 07/29/23 13:02 07/29/23 13:41 Temperature 97.6 F Pulse Rate 96 H 98 H 92 H Respiratory Rate 16 18 Blood Pressure 100/55 L 103/57 L Pulse Oximetry 100 100 95 Oxygen Delivery Method Room Air Room Air 07/29/23 13:41 07/29/23 13:46 07/29/23 13:46 Temperature Pulse Rate 92 H Respiratory Rate Blood Pressure 107/59 L 92/57 L Pulse Oximetry 100 Oxygen Delivery Method 07/29/23 13:50 07/29/23 13:55 07/29/23 14:00 Temperature Pulse Rate 89 89 89 Respiratory Rate 13 11 L 14 Blood Pressure Pulse Oximetry 100 100 100 Oxygen Delivery Method 07/29/23 14:00 07/29/23 14:05 07/29/23 14:10 Temperature Pulse Rate 88 89 Respiratory Rate 9 L 9 L Blood Pressure 102/57 L Pulse Oximetry 100 100 Oxygen Delivery Method 07/29/23 14:15 07/29/23 14:15 07/29/23 14:20 Temperature Pulse Rate 91 H 91 H Respiratory Rate 18 17 Blood Pressure 102/54 L Pulse Oximetry 99 100 Oxygen Delivery Method 07/29/23 14:20 07/29/23 14:25 07/29/23 14:25 Temperature Pulse Rate 91 H Respiratory Rate 15 Blood Pressure 102/59 L 110/58 L Pulse Oximetry 100 Oxygen Delivery Method 07/29/23 14:30 07/29/23 14:30 07/29/23 14:35 Temperature Pulse Rate 90 91 H Respiratory Rate 13 10 L Blood Pressure 106/57 L Pulse Oximetry 99 99 Oxygen Delivery Method 07/29/23 14:35 07/29/23 14:40 07/29/23 14:40 Temperature Pulse Rate 92 H Respiratory Rate 13 Blood Pressure 109/55 L 105/59 L Pulse Oximetry 92 Oxygen Delivery Method 07/29/23 14:45 07/29/23 14:45 07/29/23 14:50 Temperature Pulse Rate 92 H 92 H Respiratory Rate 17 12 Blood Pressure 102/57 L Pulse Oximetry 100 100 Oxygen Delivery Method 07/29/23 14:50 07/29/23 14:55 07/29/23 14:55 Temperature Pulse Rate 92 H Respiratory Rate 12 Blood Pressure 106/60 109/58 L Pulse Oximetry 100 Oxygen Delivery Method 07/29/23 15:00 07/29/23 15:00 07/29/23 15:05 Temperature Pulse Rate 92 H 92 H Respiratory Rate 15 14 Blood Pressure 117/59 L Pulse Oximetry 100 100 Oxygen Delivery Method 07/29/23 15:05 07/29/23 15:10 07/29/23 15:10 Temperature Pulse Rate 92 H Respiratory Rate 20 Blood Pressure 114/57 L 109/58 L Pulse Oximetry 100 Oxygen Delivery Method 07/29/23 15:15 07/29/23 15:16 07/29/23 15:16 Temperature Pulse Rate 93 H 95 H Respiratory Rate 17 16 Blood Pressure 117/54 L Pulse Oximetry 100 99 Oxygen Delivery Method 07/29/23 15:20 07/29/23 15:20 07/29/23 15:25 Temperature Pulse Rate 93 H 92 H Respiratory Rate 13 13 Blood Pressure 115/57 L Pulse Oximetry 100 100 Oxygen Delivery Method 07/29/23 15:25 07/29/23 15:30 07/29/23 15:30 Temperature Pulse Rate 91 H Respiratory Rate 9 L Blood Pressure 113/59 L 117/56 L Pulse Oximetry 100 Oxygen Delivery Method 07/29/23 15:35 07/29/23 15:35 07/29/23 15:40 Temperature Pulse Rate 91 H 91 H Respiratory Rate 9 L 10 L Blood Pressure 116/58 L Pulse Oximetry 100 100 Oxygen Delivery Method 07/29/23 15:40 07/29/23 15:45 07/29/23 15:45 Temperature Pulse Rate 91 H Respiratory Rate 9 L Blood Pressure 118/55 L 113/55 L Pulse Oximetry 100 Oxygen Delivery Method 07/29/23 15:50 07/29/23 15:50 07/29/23 15:55 Temperature Pulse Rate 92 H 92 H Respiratory Rate 11 L 14 Blood Pressure 112/58 L Pulse Oximetry 100 100 Oxygen Delivery Method 07/29/23 15:55 07/29/23 16:00 07/29/23 16:00 Temperature Pulse Rate 91 H Respiratory Rate 10 L Blood Pressure 114/56 L 113/58 L Pulse Oximetry 100 Oxygen Delivery Method 07/29/23 16:05 07/29/23 16:05 07/29/23 16:10 Temperature Pulse Rate 91 H Respiratory Rate 12 Blood Pressure 118/58 L 114/57 L Pulse Oximetry 100 Oxygen Delivery Method 07/29/23 16:10 07/29/23 16:15 07/29/23 16:15 Temperature Pulse Rate 91 H 91 H Respiratory Rate 10 L 14 Blood Pressure 107/55 L Pulse Oximetry 99 100 Oxygen Delivery Method Room Air 07/29/23 16:20 07/29/23 16:20 07/29/23 16:25 Temperature Pulse Rate 91 H 91 H Respiratory Rate 10 L 10 L Blood Pressure 110/59 L Pulse Oximetry 100 100 Oxygen Delivery Method 07/29/23 16:25 07/29/23 16:30 07/29/23 16:30 Temperature Pulse Rate 93 H Respiratory Rate 26 H Blood Pressure 109/56 L 107/59 L Pulse Oximetry 100 Oxygen Delivery Method 07/29/23 16:35 07/29/23 16:35 07/29/23 16:40 Temperature Pulse Rate 96 H 93 H Respiratory Rate 11 L 9 L Blood Pressure 111/59 L Pulse Oximetry 100 100 Oxygen Delivery Method 07/29/23 16:40 07/29/23 16:45 07/29/23 16:45 Temperature Pulse Rate 92 H Respiratory Rate 10 L Blood Pressure 117/56 L 114/55 L Pulse Oximetry 100 Oxygen Delivery Method 07/29/23 16:50 07/29/23 16:50 07/29/23 16:55 Temperature Pulse Rate 95 H 95 H Respiratory Rate 12 11 L Blood Pressure 119/57 L Pulse Oximetry 100 100 Oxygen Delivery Method 07/29/23 16:55 07/29/23 17:00 07/29/23 17:00 Temperature Pulse Rate 93 H Respiratory Rate 12 Blood Pressure 121/59 L 113/61 Pulse Oximetry 100 Oxygen Delivery Method Room Air 07/29/23 17:05 07/29/23 17:05 07/29/23 17:10 Temperature Pulse Rate 95 H 98 H Respiratory Rate 13 16 Blood Pressure 121/62 Pulse Oximetry 100 Oxygen Delivery Method 07/29/23 17:10 07/29/23 17:15 07/29/23 17:15 Temperature Pulse Rate 99 H Respiratory Rate 12 Blood Pressure 126/72 135/73 Pulse Oximetry Oxygen Delivery Method 07/29/23 17:20 07/29/23 17:21 07/29/23 17:21 Temperature Pulse Rate 98 H 99 H Respiratory Rate 20 18 Blood Pressure 123/73 Pulse Oximetry Oxygen Delivery Method 07/29/23 17:25 07/29/23 17:25 07/29/23 17:30 Temperature Pulse Rate 98 H 97 H Respiratory Rate 15 25 H Blood Pressure 129/69 Pulse Oximetry Oxygen Delivery Method 07/29/23 17:30 07/29/23 17:35 07/29/23 17:35 Temperature Pulse Rate 97 H Respiratory Rate 15 Blood Pressure 125/58 L 119/58 L Pulse Oximetry Oxygen Delivery Method 07/29/23 17:40 07/29/23 17:40 07/29/23 17:45 Temperature Pulse Rate 94 H 94 H Respiratory Rate 21 12 Blood Pressure 117/61 Pulse Oximetry Oxygen Delivery Method 07/29/23 17:45 07/29/23 17:50 07/29/23 17:50 Temperature 98.7 F Pulse Rate 93 H Respiratory Rate Blood Pressure 110/59 L 121/60 Pulse Oximetry Oxygen Delivery Method 07/29/23 17:55 07/29/23 17:55 07/29/23 18:00 Temperature Pulse Rate 94 H Respiratory Rate 13 Blood Pressure 117/59 L 129/61 Pulse Oximetry Oxygen Delivery Method 07/29/23 18:00 Temperature Pulse Rate 96 H Respiratory Rate 15 Blood Pressure Pulse Oximetry Oxygen Delivery Method MDM - Fall <Demetra Cole PA-C - Last Filed: 07/29/23 19:47> Lab Data Attestation: I reviewed the patient's lab results. 07/29/23 12:50 07/29/23 12:50 Labs: Lab Results 07/29/23 07/29/23 07/29/23 Range/Units 12:50 14:33 14:42 WBC 7.4 (4.5-11.0) X10^3/uL RBC 3.63 L (4.0-5.2) X10^6/uL Hgb 11.3 L (12.0-16.0) g/dL Hct 33.9 L (36-46) % MCV 93.3 (80-100) fL MCH 31.2 (26-34) PG MCHC 33.4 (30-36) % RDW 19.4 H (11.6-14.8) % Plt Count 408 H (150-400) X10^3/uL Neut % (Auto) 84.1 H (50-75) % Lymph % (Auto) 14.0 L (25-40) % [place] % (Auto) 1.8 L (3-14) % Eos % (Auto) 0.0 L (2-4) % Baso % (Auto) 0.1 (0-2) % Neut # (Auto) 6200 (3495-1312) /uL Lymph # (Auto) 1000 L (4351-8186) /uL [place] # (Auto) 100 (0-900) /uL Eos # (Auto) 0 (0-450) /uL Baso # (Auto) 0 (0-100) /uL PT 45.2 H (9.4-12.5) SECONDS INR 3.9 H (0.9-1.3) APTT 61 H (25.1-36.5) SECONDS ABG Sample Site Right brachial ABG pH 7.28 L* (7.35-7.45) ABG pCO2 28.9 L (35-45) mmHg ABG pO2 94 (80-100) mmHg ABG HCO3 14 L (23-27) mmol/L ABG Total CO2 15 L (23-27) mmol/L ABG O2 Saturation 96 (95-100) % ABG Base Excess -13.0 L (-2-3) mmol/L FiO2 21 Sodium 132 L (137-145) mmol/L Potassium 3.0 L (3.4-5.1) mmol/L Chloride 103 (98-107) mmol/L Carbon Dioxide 10 L (22-32) mmol/L BUN 35 H (7-17) mg/dL Creatinine 3.16 H (0.52-1.04) mg/dL Estimated GFR 15 L (>60) mL/min BUN/Creatinine Ratio 11.1 (6-22) Glucose 147 H (80-110) mg/dL Calcium 8.0 L (8.4-10.2) mg/dL Magnesium 1.1 L (1.6-2.3) mg/dL Total Bilirubin 0.5 (0.2-1.3) mg/dL AST 31 (14-36) IU/L ALT 32 (<35) IU/L Alkaline Phosphatase 236 H (38-126) U/L Total Creatine Kinase 74 (30-135) U/L Troponin I < 0.012 (0.01-0.034) ng/mL NT-Pro-B Natriuret Pep 3340 H (<125) pg/mL Total Protein 6.8 (6.3-8.2) g/dL Albumin 2.8 L (3.5-5.0) g/dL Globulin 4.0 (1.7-4.1) g/dL Albumin/Globulin Ratio 0.7 L (1.0-2.8) TSH 9.75 H (0.47-4.68) uIU/mL Urine Color Urine Appearance Urine pH (4.5-8.0) Ur Specific [place] (1.000-1.035) Urine Protein (Negative) Urine Glucose (UA) (Negative) g/dL Urine Ketones (NEGATIVE) Urine Occult Blood (Negative) Urine Nitrate (Negative) Urine Bilirubin (NEGATIVE) Urine Urobilinogen (0.2) E.U./dL Ur Leukocyte Esterase (NEGATIVE) Urine RBC (0-5/HPF) Urine WBC (0-5/HPF) Ur Squamous Epith Cells (0-5/HPF) Ur Renal Epithelial Cell (0-1/HPF) Urine Bacteria (None) Ur Culture Indicated? Vol Urine Centrifuged 07/29/23 Range/Units 16:15 WBC (4.5-11.0) X10^3/uL RBC (4.0-5.2) X10^6/uL Hgb (12.0-16.0) g/dL Hct (36-46) % MCV (80-100) fL MCH (26-34) PG MCHC (30-36) % RDW (11.6-14.8) % Plt Count (150-400) X10^3/uL Neut % (Auto) (50-75) % Lymph % (Auto) (25-40) % [place] % (Auto) (3-14) % Eos % (Auto) (2-4) % Baso % (Auto) (0-2) % Neut # (Auto) (4720-6127) /uL Lymph # (Auto) (2754-6735) /uL [place] # (Auto) (0-900) /uL Eos # (Auto) (0-450) /uL Baso # (Auto) (0-100) /uL PT (9.4-12.5) SECONDS INR (0.9-1.3) APTT (25.1-36.5) SECONDS ABG Sample Site ABG pH (7.35-7.45) ABG pCO2 (35-45) mmHg ABG pO2 (80-100) mmHg ABG HCO3 (23-27) mmol/L ABG Total CO2 (23-27) mmol/L ABG O2 Saturation (95-100) % ABG Base Excess (-2-3) mmol/L FiO2 Sodium (137-145) mmol/L Potassium (3.4-5.1) mmol/L Chloride (98-107) mmol/L Carbon Dioxide (22-32) mmol/L BUN (7-17) mg/dL Creatinine (0.52-1.04) mg/dL Estimated GFR (>60) mL/min BUN/Creatinine Ratio (6-22) Glucose (80-110) mg/dL Calcium (8.4-10.2) mg/dL Magnesium (1.6-2.3) mg/dL Total Bilirubin (0.2-1.3) mg/dL AST (14-36) IU/L ALT (<35) IU/L Alkaline Phosphatase (38-126) U/L Total Creatine Kinase (30-135) U/L Troponin I (0.01-0.034) ng/mL NT-Pro-B Natriuret Pep (<125) pg/mL Total Protein (6.3-8.2) g/dL Albumin (3.5-5.0) g/dL Globulin (1.7-4.1) g/dL Albumin/Globulin Ratio (1.0-2.8) TSH (0.47-4.68) uIU/mL Urine Color Yellow Urine Appearance Clear Urine pH 5.0 (4.5-8.0) Ur Specific [place] 1.025 (1.000-1.035) Urine Protein 2+ H (Negative) Urine Glucose (UA) Negative (Negative) g/dL Urine Ketones Negative (NEGATIVE) Urine Occult Blood Negative (Negative) Urine Nitrate Negative (Negative) Urine Bilirubin Negative (NEGATIVE) Urine Urobilinogen 0.2 (0.2) E.U./dL Ur Leukocyte Esterase Negative (NEGATIVE) Urine RBC None seen (0-5/HPF) Urine WBC None seen (0-5/HPF) Ur Squamous Epith Cells None seen (0-5/HPF) Ur Renal Epithelial Cell 0-1/hpf (0-1/HPF) Urine Bacteria None seen (None) Ur Culture Indicated? Cult not indicated Vol Urine Centrifuged N Imaging Data CT scan - abdomen/pelvis: Radiologist's Impression: [address] [address] [address] Scan Report Signed Patient: Piper Heath MR#: [id number] : 06/07/1949 Acct:[id number] Age/Sex: 74 / F Date of Service: 07/29/23 Loc: ED Accession Number: [id number] Procedure: CT chest abd pel wo con Ordering Provider: Demetra Cole P.A-C PROCEDURE: CT CHEST ABD PEL WO CON INDICATIONS: T/L back injury/deformity 7D MEDICAL COLLECTIONS+N/V/weightloss/dizzy 2mo TECHNIQUE: After the administration of oral contrast, 5 mm thick sections acquired from the lung apices to the symphysis pubis. 5 mm thick coronal and sagittal reformats acquired, with additional 7 mm coronal MIP reformats through the lungs. For radiation dose reduction, the following was used: automated exposure control, adjustment of mA and/or kV according to patient size. COMPARISON: [facility], CT, CT CHEST WO CON, 10/28/2019, 15:41. [facility], CT, CT ABDOMEN PELVIS WO CON, 03/10/2023, 15:55. FINDINGS: Image quality: Diagnostic. CHEST: Lower Neck: No enlarged lymph nodes. Thyroid: No thyroid nodules which require sonographic follow up, per consensus guidelines. Axillae: No enlarged lymph nodes. Chest Wall: Unremarkable. Bones: Unremarkable. Lungs and Pleura: Small left pleural effusion with adjacent atelectasis versus consolidation. Biapical pleuroparenchymal scarring. No focal pulmonary consolidations. Scattered pulmonary nodules measuring up to 5 mm are stable compared to prior. Heart: Heart size is normal. Moderate to severe coronary artery calcifications. Trace pericardial effusion. Thoracic Vessels: The aorta and pulmonary arteries demonstrate normal size. Atherosclerotic vascular calcifications. Mediastinum and Lisa: No enlarged lymph nodes. Esophagus: No wall thickening. Small hiatal hernia. ABDOMEN: Liver: No solid mass. Decreased in attenuation, consistent with hepatic steatosis. Gallbladder: Gallbladder is distended. No gallstones or gallbladder wall thickening. No evidence of inflammation. Biliary ducts: No biliary dilation. Pancreas: No ductal dilation. Spleen: Size is within normal limits. Adrenal Glands: No adrenal nodules. Kidneys and Ureters: Nonobstructing 3 mm left renal calcification. Simple appearing renal cysts. No hydronephrosis. No solid mass. No complex renal cystic lesion which requires follow up. Stomach and Bowel: Normal colonic caliber, without significant wall thickening. Diverticulosis without evidence of acute diverticulitis. Normal appendix. Peritoneum: No abnormal intraperitoneal fluid. No free air. Ventral Wall: No hernia. Anasarca. Abdominal Nodes: No retroperitoneal or mesenteric adenopathy by size criteria. Vessels: Aorta and inferior vena cava are normal in size. Atherosclerotic vascular calcifications. PELVIS: Pelvic Organs: Unremarkable. Bladder: Decompressed, limiting evaluation. Pelvic Nodes: No enlarged lymph nodes. Miscellaneous: No inguinal hernias are seen. Bones: Severe anterior wedge compression deformity of T11. No aggressive osseous abnormality. Diffusely decreased osseous mineralization. Multilevel degenerative changes of the spine. Healing fracture deformity of the inferior sternum. IMPRESSION: 1. Severe anterior wedge compression deformity of T11 with mild retropulsion resulting in mild central canal stenosis. 2. Scattered pulmonary nodules measuring up to 5 mm are stable compared to prior. 3. Moderate to severe coronary artery calcifications. 4. Gallbladder is distended. No gallstones or evidence of gallbladder wall inflammation. 5. Nonobstructing 3 mm left renal stone. 6. Mild anasarca. 7. Diverticulosis without evidence of acute diverticulitis. 8. Healing fracture deformity of the inferior sternum. Dictated by: Fahad Barr M.D. on 07/29/2023 at 14:25 Approved by: Fahad Barr M.D. on 07/29/2023 at 14:35 <Sobia Charles MD - Last Filed: 07/31/23 20:36> Lab Data Labs: Lab Results 07/29/23 07/29/23 07/29/23 Range/Units 12:50 14:33 14:42 WBC 7.4 (4.5-11.0) X10^3/uL RBC 3.63 L (4.0-5.2) X10^6/uL Hgb 11.3 L (12.0-16.0) g/dL Hct 33.9 L (36-46) % MCV 93.3 (80-100) fL MCH 31.2 (26-34) PG MCHC 33.4 (30-36) % RDW 19.4 H (11.6-14.8) % Plt Count 408 H (150-400) X10^3/uL Neut % (Auto) 84.1 H (50-75) % Lymph % (Auto) 14.0 L (25-40) % [place] % (Auto) 1.8 L (3-14) % Eos % (Auto) 0.0 L (2-4) % Baso % (Auto) 0.1 (0-2) % Neut # (Auto) 6200 (5819-0316) /uL Lymph # (Auto) 1000 L (3243-5784) /uL [place] # (Auto) 100 (0-900) /uL Eos # (Auto) 0 (0-450) /uL Baso # (Auto) 0 (0-100) /uL PT 45.2 H (9.4-12.5) SECONDS INR 3.9 H (0.9-1.3) APTT 61 H (25.1-36.5) SECONDS ABG Sample Site Right brachial ABG pH 7.28 L* (7.35-7.45) ABG pCO2 28.9 L (35-45) mmHg ABG pO2 94 (80-100) mmHg ABG HCO3 14 L (23-27) mmol/L ABG Total CO2 15 L (23-27) mmol/L ABG O2 Saturation 96 (95-100) % ABG Base Excess -13.0 L (-2-3) mmol/L FiO2 21 Sodium 132 L (137-145) mmol/L Potassium 3.0 L (3.4-5.1) mmol/L Chloride 103 (98-107) mmol/L Carbon Dioxide 10 L (22-32) mmol/L BUN 35 H (7-17) mg/dL Creatinine 3.16 H (0.52-1.04) mg/dL Estimated GFR 15 L (>60) mL/min BUN/Creatinine Ratio 11.1 (6-22) Glucose 147 H (80-110) mg/dL Calcium 8.0 L (8.4-10.2) mg/dL Magnesium 1.1 L (1.6-2.3) mg/dL Total Bilirubin 0.5 (0.2-1.3) mg/dL AST 31 (14-36) IU/L ALT 32 (<35) IU/L Alkaline Phosphatase 236 H (38-126) U/L Total Creatine Kinase 74 (30-135) U/L Troponin I < 0.012 (0.01-0.034) ng/mL NT-Pro-B Natriuret Pep 3340 H (<125) pg/mL Total Protein 6.8 (6.3-8.2) g/dL Albumin 2.8 L (3.5-5.0) g/dL Globulin 4.0 (1.7-4.1) g/dL Albumin/Globulin Ratio 0.7 L (1.0-2.8) TSH 9.75 H (0.47-4.68) uIU/mL Urine Color Urine Appearance Urine pH (4.5-8.0) Ur Specific [place] (1.000-1.035) Urine Protein (Negative) Urine Glucose (UA) (Negative) g/dL Urine Ketones (NEGATIVE) Urine Occult Blood (Negative) Urine Nitrate (Negative) Urine Bilirubin (NEGATIVE) Urine Urobilinogen (0.2) E.U./dL Ur Leukocyte Esterase (NEGATIVE) Urine RBC (0-5/HPF) Urine WBC (0-5/HPF) Ur Squamous Epith Cells (0-5/HPF) Ur Renal Epithelial Cell (0-1/HPF) Urine Bacteria (None) Ur Culture Indicated? Vol Urine Centrifuged 07/29/23 Range/Units 16:15 WBC (4.5-11.0) X10^3/uL RBC (4.0-5.2) X10^6/uL Hgb (12.0-16.0) g/dL Hct (36-46) % MCV (80-100) fL MCH (26-34) PG MCHC (30-36) % RDW (11.6-14.8) % Plt Count (150-400) X10^3/uL Neut % (Auto) (50-75) % Lymph % (Auto) (25-40) % [place] % (Auto) (3-14) % Eos % (Auto) (2-4) % Baso % (Auto) (0-2) % Neut # (Auto) (8341-5946) /uL Lymph # (Auto) (8163-4235) /uL [place] # (Auto) (0-900) /uL Eos # (Auto) (0-450) /uL Baso # (Auto) (0-100) /uL PT (9.4-12.5) SECONDS INR (0.9-1.3) APTT (25.1-36.5) SECONDS ABG Sample Site ABG pH (7.35-7.45) ABG pCO2 (35-45) mmHg ABG pO2 (80-100) mmHg ABG HCO3 (23-27) mmol/L ABG Total CO2 (23-27) mmol/L ABG O2 Saturation (95-100) % ABG Base Excess (-2-3) mmol/L FiO2 Sodium (137-145) mmol/L Potassium (3.4-5.1) mmol/L Chloride (98-107) mmol/L Carbon Dioxide (22-32) mmol/L BUN (7-17) mg/dL Creatinine (0.52-1.04) mg/dL Estimated GFR (>60) mL/min BUN/Creatinine Ratio (6-22) Glucose (80-110) mg/dL Calcium (8.4-10.2) mg/dL Magnesium (1.6-2.3) mg/dL Total Bilirubin (0.2-1.3) mg/dL AST (14-36) IU/L ALT (<35) IU/L Alkaline Phosphatase (38-126) U/L Total Creatine Kinase (30-135) U/L Troponin I (0.01-0.034) ng/mL NT-Pro-B Natriuret Pep (<125) pg/mL Total Protein (6.3-8.2) g/dL Albumin (3.5-5.0) g/dL Globulin (1.7-4.1) g/dL Albumin/Globulin Ratio (1.0-2.8) TSH (0.47-4.68) uIU/mL Urine Color Yellow Urine Appearance Clear Urine pH 5.0 (4.5-8.0) Ur Specific [place] 1.025 (1.000-1.035) Urine Protein 2+ H (Negative) Urine Glucose (UA) Negative (Negative) g/dL Urine Ketones Negative (NEGATIVE) Urine Occult Blood Negative (Negative) Urine Nitrate Negative (Negative) Urine Bilirubin Negative (NEGATIVE) Urine Urobilinogen 0.2 (0.2) E.U./dL Ur Leukocyte Esterase Negative (NEGATIVE) Urine RBC None seen (0-5/HPF) Urine WBC None seen (0-5/HPF) Ur Squamous Epith Cells None seen (0-5/HPF) Ur Renal Epithelial Cell 0-1/hpf (0-1/HPF) Urine Bacteria None seen (None) Ur Culture Indicated? Cult not indicated Vol Urine Centrifuged N Discharge Plan Departure Patient Disposition: [facility] Clinical Impression: Acute renal failure, Acute hypokalemia, Hypomagnesemia Prescriptions: No Action colchicine 0.6 mg Tablet 0.6 mg PO BID Patient Comments: Patient no longer taking states it's making her sick. cinacalcet 30 mg Tablet 30 mg PO DAILY Patient Comments: Patient stopped taking, stating it's making her sick. potassium chloride 20 mEq Tablet,Er Particles/Crystals 20 meq PO BID Patient Comments: Patient stopped taking, stating it's making her sick. topiramate 100 mg Tablet 100 mg PO TID escitalopram oxalate 10 mg tablet 5 mg PO DAILY hydrochlorothiazide 12.5 mg tablet 12.5 mg PO DAILY Mag 64 64 mg tablet,delayed release (DR/EC) 64 mg PO DAILY hydrocodone-acetaminophen 5-325 mg tablet 1 tab PO Q4HR spironolacton-hydrochlorothiaz 25-25 mg Tablet 1 tab PO DAILY Patient Comments: Take by mouth for 7 days Novolin N NPH U-100 Insulin 100 unit/mL Suspension 45 unit SUBCUT QPM insulin aspart U-100 [Novolog FlexPen U-100 Insulin] 100 unit/mL Insulin Pen 4 - 10 unit SUBCUT QPM amlodipine 5 mg Tablet 5 mg PO DAILY nortriptyline 25 mg Capsule 25 mg PO BID (DME) insulin syringe-needle U-100 [BD Insulin Syringe] 0.3 mL 29 gauge x 1/2 Syringe fluticasone propion-salmeterol [Advair Diskus] 250-50 mcg/dose Blister With Device 1 inh INHALATION BID acebutolol 400 mg Capsule 400 mg PO DAILY levothyroxine [Synthroid] 75 mcg Tablet 75 mcg PO DAILY Patient Comments: Patient stopped taking, stating it's making her sick. albuterol sulfate [Ventolin HFA] 90 mcg/actuation Hfa Aerosol Inhaler 2 puff INHALATION Q4-6H PRN (Reason: Bronchodilation) rosuvastatin [Crestor] 40 mg Tablet 40 mg PO DAILY Patient Comments: Patient stopped taking, stating it's making her sick. fenofibrate nanocrystallized [Tricor] 48 mg Tablet 48 mg PO DAILY Patient Comments: Patient stopped taking, stating it's making her sick. omeprazole 20 mg Tablet,Delayed Release (Dr/Ec) 20 mg PO BID (DME) pen needle, diabetic [Unifine Pentips] 31 gauge x 5/16 Needle (DME) E-Z Spacer Spacer (DME) One Touchverio In Vitro Strip strip Referrals: Miscellaneous,Doctor, MD [Primary Care Provider] -
[2023-07-29 13:02] LABS: Add Manual Diff / Slide Review NO; Basophils Absolute Auto 0 /uL (0-100); Basophils Percent Auto 0.1 % (0-2); Eosinophils Absolute Auto 0 /uL (0-450); Hematocrit 33.9 % (36-46); Hemoglobin 11.3 g/dL (12.0-16.0); Lymphocytes Absolute Auto 1000 /uL (1100-4500); Mean Corpuscular HGB Conc 33.4 % (30-36); Mean Corpuscular Hemoglobin 31.2 PG (26-34); Mean Corpuscular Volume 93.3 fL (80-100); Monocytes Absolute Auto 100 /uL (0-900); Monocytes Percent Auto 1.8 % (3-14); Neutrophils Absolute Auto 6200 /uL (1500-7000); Neutrophils Percent Auto 84.1 % (50-75); Platelet Count 408 X10^3/uL (150-400); Red Blood Cell Count 3.63 X10^6/uL (4.0-5.2); Red Cell Distribution Width 19.4 % (11.6-14.8); White Blood Cell Count 7.4 X10^3/uL (4.5-11.0)
[2023-07-29 13:14] LABS: INR 3.9 (0.9-1.3); Prothrombin Time 45.2 SECONDS (9.4-12.5)
[2023-07-29 13:17] LABS: PTT Partial Thromboplastin Tim 61 SECONDS (25.1-36.5)
[2023-07-29 13:18] LABS: Alanine Aminotransferase 32 IU/L (<35); Albumin 2.8 g/dL (3.5-5.0); Albumin Globulin Ratio 0.7 (1.0-2.8); Alkaline Phosphatase 236 U/L (38-126); Aspartate Aminotransferase 31 IU/L (14-36); BUN Creatinine Ratio 11.1 (6-22); Bilirubin Total 0.5 mg/dL (0.2-1.3); Blood Urea Nitrogen 35 mg/dL (7-17); Carbon Dioxide 10 mmol/L (22-32); Chloride 103 mmol/L (98-107); Estimated Glomerular Filt Rate 15 mL/min (>60); Glucose 147 mg/dL (80-110); HEMOLYSIS < 15 (0-50); Sodium 132 mmol/L (137-145); Total Protein 6.8 g/dL (6.3-8.2)
[2023-07-29 13:36] LABS: NT-proBNP (BNP-Adult 18+) 3340 pg/mL (<125)
[2023-07-29] MEDS: ONDANSETRON 4 MG/2 ML INJ IV ×2 (13:44→17:43)
[2023-07-29] MEDS: SODIUM CHLORIDE 0.9% 1,000 ML 500 ML IV ×2 (13:46→16:26)
[2023-07-29 13:50] LABS: Magnesium 1.1 mg/dL (1.6-2.3)
[2023-07-29 13:58] LABS: Thyroid Stimulating Hormone 9.75 uIU/mL (0.47-4.68)
--- NOTE | 2023-07-29 14:05 | PC.NURSE ---
late entry: upon triage patient and state that she has been feeling dizzy, vomiting, and had decrease in appetite the last 2 months. She has lost over 100lb in the last year. she has seen her doctor in the last year and the weight loss has been noticed, but there has been nothing done with it. going through patient's bag of medications, states she does not take any of them regularly anymore, as she doesn't feel good. admits to taking BP when her heart rate is over 100, but never more than one pill, and takes her HCTZ if her feet are puffy and she does not take her potassium, magnesium, thyroid pills or pain pills since they make her sick. points out that since her fall, she has a new lump in the middle of her back, palpation of this area in most tender. also c/o pain with palpation over kidneys, and left side of abdomen. denies pain with deep breathes or in rib cage. pt states she does usually use a cane or walker at home. 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
[2023-07-29] MEDS: MAGNESIUM SULFATE 2 GM/50 ML PIGGYBACK IV (14:27)
[2023-07-29] MEDS: fentaNYL 100 MCG/2 ML INJ 25 MCG IV (14:29)
[2023-07-29 14:51] LABS: HCO3 ABG 14 mmol/L (23-27); PCO2 ABG 28.9 mmHg (35-45); PO2 ABG 94 mmHg (80-100); pH ABG 7.28 (7.35-7.45)
[2023-07-29 14:52] LABS: Blood Gas Collection Site Right Brachial; Fractionated Inspired Oxygen 21; Oxygen Saturation ABG 96 % (95-100); TCO2 ABG 15 mmol/L (23-27)
[2023-07-29] MEDS: SODIUM CHLORIDE 0.9% 1,000 ML 125 ML IV (14:57)
[2023-07-29 15:38] LABS: Troponin I < 0.012 ng/mL (0.01-0.034)
[2023-07-29 15:56] LABS: Creatine Kinase 74 U/L (30-135)
[2023-07-29 16:38] LABS: Appearance Urine UA CLEAR; Bilirubin Urine UA NEGATIVE (NEGATIVE); Color Urine UA YELLOW; Glucose Urine UA NEGATIVE (Negative); Ketones Urine UA NEGATIVE (NEGATIVE); Leukocyte Esterase Urine UA NEGATIVE (NEGATIVE); Nitrite Urine UA NEGATIVE (Negative); Occult Blood Urine UA NEGATIVE (Negative); Protein Urine UA 2+ (Negative); Specific Gravity Urine UA 1.025 (1.000-1.035); Urobilinogen Urine UA 0.2 E.U./dL (0.2)
--- NOTE | 2023-07-29 16:47 | PC.NURSE ---
this RN spoke with transfer center who reports that the bed is ready. the bed assignment is [id number] but the patient will go to the ED first to check in. nurse to nurse report to the transfer center at [phone] option 1. luc GONZALES, charge and provider aware. transport being arranged and transfer center wants to be updated with an ETA.
[2023-07-29 16:50] LABS: Bacteria Urine None Seen; Culture Indicated Urine Cult Not Indicated; RBC Urine None Seen (0-5/HPF); Urine Volume N; WBC Urine None Seen (0-5/HPF)
[2023-07-29 16:51] LABS: Renal Epithelial Cells Urine 0-1/HPF (0-1/HPF)
[2023-07-29 16:56] LABS: Squamous Epithelial Cell Urine None Seen (0-5/HPF)
[2023-07-29] MEDS: POTASSIUM CHLORIDE 20 MEQ/15 ML UDC 40 MEQ PO (17:03)
[2023-07-29] MEDS: fentaNYL 100 MCG/2 ML INJ 50 MCG IV (18:00)
== END 2023-07-29 18:35 | disposition short-term general hospital (02) ==
PROVIDERS: Student in an Organized Health Care Education/Training Program; Emergency Provider Emergency Medicine
DX: N19 Unspecified kidney failure (principal); E87.6 Hypokalemia; E83.42 Hypomagnesemia; M48.04 Spinal stenosis, thoracic region; W18.30XA Fall on same level, unspecified, initial encounter
CPT/HCPCS: 36415; 36600; 71250; 74176; 80053; 81001; 82550; 83735; 83880; 84443; 84484; 85025; 85610; 85730; 93005; 93010; 96365; 96366; 96375; 96376; 99285; J2405; J3010; J3475

== ENCOUNTER 2023-10-17 06:40 | Inpatient (IN) | payer MEDICARE, OTHER, SELFPAY ==
[2023-03-10 02:06] VITALS: BMI 25.1
[2023-10-17] VITALS (42 sets, daily range): BP systolic 138–207; BP diastolic 65–127; PULSE 66–120; RESP 13–29; TEMP 36.6–37.2; O2SAT 95–100; BMI 22.9
--- NOTE | 2023-10-17 06:57 | PC.NURSE ---
Pt's BS is <30 - Todd EDWARDS made aware. Verbal order of dextrose 50% IV admin - see JUN.
[2023-10-17] MEDS: DEXTROSE 50 % IN WATER 25 GM/50 ML SYRINGE TUBE (07:02)
--- NOTE | 2023-10-17 07:20 | ED_ITS ---
HPI - Seizure General Chief Complaint: Seizure Stated Complaint: seizure, vomiting Time Seen by Provider: 10/17/23 06:59 Source: patient and EMS Mode of arrival: EMS Limitations: altered mental status History of Present Illness HPI Narrative: 74-year-old female with history of GERD, hypokalemia, hyponatremia, CKD, type 2 diabetes on insulin, hypertension, psoriatic arthritis, hyperlipidemia, hypothyroidism brought in by EMS for hypoglycemia. Patient does not recall incidents but was reportedly had a glucose 30, received dex EN route with EMS, had recheck in another amp of dex here in the department. She is 182 on recheck and was fed. Patient does not recall events from earlier today she notes she did had her insulin last night. She presumes she is at [facility], she knows the year the month she knows her name. Mentation appears to be improving. Patient states that she feels a little nauseated and sweaty. Denies any headache, denies any chest pain, states some mild shortness of breath, no vomiting. She denies any GI or urinary symptoms. No numbness tingling weakness of extremities. Patient states that she believes she had her insulin last night she does not know if she had any today. Her family is not at bedside but she was found by her this morning. Reports allergy to penicillin. Related Data Home Medications Medication Instructions Recorded Confirmed One Touchverio In Vitro Strip 04/16/18 03/10/23 acebutolol 400 mg capsule 400 mg PO DAILY 04/16/18 10/17/23 albuterol sulfate 90 mcg/actuation 2 puff inhalation Q4-6H PRN 04/16/18 10/17/23 aerosol inhaler (Ventolin HFA) Bronchodilation amlodipine 5 mg tablet 5 mg PO DAILY 04/16/18 10/17/23 fluticasone 250 mcg-salmeterol 50 1 inh inhalation BID 04/16/18 10/17/23 mcg/dose blistr powdr for inhalation (Advair Diskus) inhalational spacing device (E-Z 04/16/18 03/10/23 Spacer) insulin NPH isoph U-100 human 100 45 unit SUBCUT QPM 04/16/18 10/17/23 unit/mL subcutaneous suspension (Novolin N NPH U-100 Insulin isophane) insulin aspart U-100 100 unit/mL 4 - 10 unit SUBCUT QPM 04/16/18 10/17/23 (3 mL) subcutaneous pen (Novolog FlexPen U-100 Insulin aspart) insulin syringe-needle U-100 0.3 04/16/18 03/10/23 mL 29 gauge x 1/2 (BD Insulin Syringe) levothyroxine 75 mcg tablet 75 mcg PO DAILY 04/16/18 10/17/23 (Synthroid) omeprazole 20 mg tablet,delayed 20 mg PO BID 04/16/18 10/17/23 release pen needle, diabetic 31 gauge x 04/16/18 03/10/23/16 (Unifine Pentips) hydrochlorothiazide 12.5 mg tablet 25 mg PO DAILY 03/10/23 10/17/23 hydrocodone 5 mg-acetaminophen 325 1 tab PO Q4HR 03/10/23 10/17/23 mg tablet aspirin 81 mg capsule 81 mg PO DAILY 10/17/23 10/17/23 escitalopram oxalate 10 mg tablet 10 mg PO DAILY 10/17/23 10/17/23 (Lexapro) fenofibrate nanocrystallized 48 mg 48 mg PO DAILY 10/17/23 10/17/23 tablet (Tricor) infliximab 100 mg intravenous 100 mg IV SEEINSTR 10/17/23 10/17/23 solution (Remicade) rosuvastatin 40 mg tablet (Crestor) 40 mg PO DAILY 10/17/23 10/17/23 sodium chloride 0.65 % nasal spray 1 spray intranasal BID 10/17/23 10/17/23 aerosol Allergies Allergy/AdvReac Type Severity Reaction Status Date / Time Penicillins Allergy Severe Difficulty Verified 07/29/23 12:30 Breathing Review of Systems Review of Systems ROS Unobtainable: All systems reviewed & are unremarkable except as noted in HPI and below Patient History Medical History Hypothyroidism GERD (gastroesophageal reflux disease) Chronic hypokalemia Hyperlipidemia Hypertension Type 2 diabetes mellitus Psoriasis Psoriatic arthritis Chronic kidney disease Social History household members: spouse and significant other Smoking Status: Former smoker alcohol intake: current substance use type: does not use Smoking Status: Former smoker alcohol intake frequency: a few times a week Substance Use Type: does not use Exam Narrative Exam Narrative: GEN: female, alert and oriented x 3, patient appears to be in mild distress. No diaphoresis. HEENT: Atraumatic, pupils are equal round reactive to light, extraocular movements are intact, nares are clear, TMs are clear with no fluid, there is no conjunctival pallor. Throat is clear without any exudates, erythema, tonsillar enlargement or uvular deviation, no facial droop HEART: Regular rate and rhythm without murmur, clicks, rubs. No carotid bruits, pulses are equal in upper and lower extremities LUNGS:Lungs clear to auscultation, no wheezes, rales, crackles, chest moves symmetrically ABD:bowel sounds normal, soft, non-tender, no guarding, rebound, rigidity, no masses noted, no hepatosplenomegaly :No CVA tenderness MSCL: Non-tender, no muscle atrophy, muscles strength 5/5 upper and lower extremities, full range of motion, normal gait NEURO:CN 2-12 intact, sensation normal. SKIN: No rash, erythema or other skin changes Initial Vital Signs Initial Vital Signs: Vital Signs Temperature 98.4 F 10/17/23 06:51 Pulse Rate 74 10/17/23 06:51 Respiratory Rate 18 10/17/23 06:51 Blood Pressure 195/96 H 10/17/23 06:51 Pulse Oximetry 97 10/17/23 06:51 Oxygen Delivery Method Room Air 10/17/23 06:51 Course Orders Ordered: ED Orders 10/17/23 10:52 Urine Drug Screen, Rapid Stat Urine Microscopic Stat Acetaminophen (Acetaminophen 325 Mg Tablet) 650 mg PO Q6H PRN PRN Reason: Fever/Mild Pain (1-3) Hydrocodone Bitart/Acetaminophen (Hydrocodone/Acet 5/325 Tablet) 1 tab PO Q4H PRN PRN Reason: Pain, Moderate (4-6) Last Admin: 10/17/23 15:19 Dose: 1 tab Documented By: AMMON Albuterol (Albuterol 2.5 Mg/3 Ml Neb (Adult)) 2.5 mg INH [id number] WERNER Last Admin: 10/17/23 15:24 Dose: 2.5 mg Documented By: AMBER Albuterol (Albuterol 2.5 Mg/3 Ml Neb (Adult)) 2.5 mg INH RTQ2HR PRN PRN Reason: Shortness Of Breath Amlodipine Besylate (Amlodipine 5 Mg Tablet) 5 mg PO DAILY WERNER Last Admin: 10/17/23 14:52 Dose: 5 mg Documented By: AMMON Aspirin (Aspirin Ec 81 Mg Tablet) 81 mg PO DAILY [facility] Atorvastatin Calcium (Atorvastatin 20 Mg Tablet) 80 mg PO BEDTIME WERNER Budesonide (Budesonide 0.5 Mg/2 Ml Neb) 0.5 mg INH RTBID WERNER Dextrose (Dextrose 50 % In Water 25 Gm/50 Ml Syringe) 25 gm TUBE PRN PRN PRN Reason: Blood Sugar - Low Last Admin: 10/17/23 07:02 Dose: 25 gm Documented By: DARIUS Escitalopram Oxalate (Escitalopram 10 Mg Tablet) 10 mg PO DAILY WERNER Last Admin: 10/17/23 14:52 Dose: 10 mg Documented By: AMMON Fenofibrate (Fenofibrate, Micronized 67 Mg Capsule) 67 mg PO DAILY [facility] Hydralazine HCl (Hydralazine 20 Mg/Ml Vial) 10 mg IV Q6H PRN PRN Reason: SBP > 180 Last Admin: 10/17/23 15:41 Dose: 10 mg Documented By: AMMON Hydrochlorothiazide (Hydrochlorothiazide 25 Mg Tablet) 25 mg PO DAILY [facility] Dextrose (D10w) 100 mls @ 999 mls/hr IV PRN PRN PRN Reason: Hypoglycemia Insulin Human Lispro (Insulin Lispro 100 Unit/Ml 3ml Vial) 0 unit SUBCUT ACHS [facility]; Protocol Levothyroxine Sodium (Levothyroxine 75 Mcg Tablet) 75 mcg PO DAILY@0600 WERNER Naloxone HCl (Naloxone 0.4 Mg/Ml Vial) 0.2 mg IV Q2MIN PRN PRN Reason: Opiate Reversal Oxymetazoline HCl (Oxymetazoline Nasal [place] 30 Ml) 2 sprays NASAL Q12HR PRN PRN Reason: Congestion Last Admin: 10/17/23 14:52 Dose: 2 sprays Documented By: AMMON Pantoprazole Sodium (Pantoprazole Dr 20 Mg Tablet) 20 mg PO BID [facility] Sodium Chloride (Sodium Chloride 0.9% Flush) 10 ml IV PRN PRN PRN Reason: Flush Last Admin: 10/17/23 15:41 Dose: 10 ml Documented By: AMMON Discontinued Medications Albuterol (Albuterol 2.5 Mg/3 Ml Neb (Adult)) 2.5 mg INH [id number] PRN PRN Reason: Bronchodilation Dextrose (Dextrose 50 % In Water 25 Gm/50 Ml Syringe) 25 gm IV NOW ONE Stop: 10/17/23 08:04 Last Admin: 10/17/23 08:10 Dose: 25 gm Documented By: NIVIA Sodium Chloride (Normal Saline 0.9%) 1,000 mls @ 150 mls/hr IV CONT WERNER Last Infusion: 10/17/23 14:17 Dose: 0 mls/hr Documented By: Infusion: 10/17/23 13:31 Dose: 150 mls/hr Documented By: Admin: 10/17/23 08:14 Dose: 150 mls/hr Documented By: NIVIA Dextrose (D10w) 1,000 mls @ 75 mls/hr IV CONT WERNER Last Infusion: 10/17/23 18:17 Dose: 0 mls/hr Documented By: Infusion: 10/17/23 13:30 Dose: 125 mls/hr Documented By: Infusion: 10/17/23 12:49 Dose: 125 mls/hr Documented By: Admin: 10/17/23 11:53 Dose: 75 mls/hr Documented By: NIVIA Potassium Chloride (Potassium Chloride 20 Meq Tab) 40 meq PO NOW ONE Stop: 10/17/23 08:38 Last Admin: 10/17/23 09:01 Dose: 40 meq Documented By: NIVIA Sodium Chloride (Sodium Chloride Nasal [place]) 1 spray NASAL BID [facility] Last Admin: 10/17/23 15:14 Dose: Not Given Documented By: AMMON Vital Signs Vital signs: Vital Signs - 8 hr 10/17/23 10:30 10/17/23 10:30 10/17/23 11:00 Pulse Rate 72 Respiratory Rate 17 Blood Pressure 165/77 H 165/76 H Pulse Oximetry 99 Oxygen Delivery Method Room Air 10/17/23 11:00 10/17/23 11:30 10/17/23 11:30 Pulse Rate 69 74 Respiratory Rate 22 16 Blood Pressure 171/80 H Pulse Oximetry 98 99 Oxygen Delivery Method Room Air 10/17/23 12:00 10/17/23 12:00 10/17/23 12:30 Pulse Rate 77 Respiratory Rate Blood Pressure 176/84 H 167/75 H Pulse Oximetry 99 Oxygen Delivery Method Room Air 10/17/23 12:30 Pulse Rate 71 Respiratory Rate 29 H Blood Pressure Pulse Oximetry 98 Oxygen Delivery Method Room Air MDM - Seizure Lab Data 10/17/23 06:45 06/29/24 06:45 Labs: Lab Results 10/17/23 10/17/23 Range/Units 06:45 10:52 WBC 5.6 (4.5-11.0) X10^3/uL RBC 3.09 L (4.0-5.2) X10^6/uL Hgb 10.0 L (12.0-16.0) g/dL Hct 29.6 L (36-46) % MCV 96.0 (80-100) fL MCH 32.3 (26-34) PG MCHC 33.6 (30-36) % RDW 14.7 (11.6-14.8) % Plt Count 380 (150-400) X10^3/uL Neut % (Auto) 38.6 L (50-75) % Lymph % (Auto) 45.1 H (25-40) % Bates % (Auto) 11.7 (3-14) % Eos % (Auto) 0.7 L (2-4) % Baso % (Auto) 3.9 H (0-2) % Neut # (Auto) 2200 (1374-4871) /uL Lymph # (Auto) 2500 (3523-6469) /uL Bates # (Auto) 700 (0-900) /uL Eos # (Auto) 0 (0-450) /uL Baso # (Auto) 200 H (0-100) /uL Sodium 139 (137-145) mmol/L Potassium 3.0 L (3.4-5.1) mmol/L Chloride 113 H (98-107) mmol/L Carbon Dioxide 15 L (22-32) mmol/L BUN 22 H (7-17) mg/dL Creatinine 2.14 H (0.52-1.04) mg/dL Estimated GFR 24 L (>60) mL/min BUN/Creatinine Ratio 10.3 (6-22) Glucose 54 L (80-110) mg/dL Calcium 8.6 (8.4-10.2) mg/dL Total Bilirubin 0.3 (0.2-1.3) mg/dL AST 132 H (14-36) IU/L ALT 58 H (<35) IU/L Alkaline Phosphatase 156 H (38-126) U/L Total Creatine Kinase 39 (30-135) U/L Troponin I < 0.012 (0.01-0.034) ng/mL NT-Pro-B Natriuret Pep 2470 H (<125) pg/mL Total Protein 6.9 (6.3-8.2) g/dL Albumin 3.3 L (3.5-5.0) g/dL Globulin 3.6 (1.7-4.1) g/dL Albumin/Globulin Ratio 0.9 L (1.0-2.8) Lipase 24 (23-300) U/L Urine RBC 1-5/hpf (0-5/HPF) Urine WBC 1-5/hpf (0-5/HPF) Ur Squamous Epith Cells 1-5 /hpf (0-5/HPF) Urine Bacteria Occasional (0-1) (None) Hyaline Casts 0-1/lpf (None) Ur Culture Indicated? Cult not indicated Vol Urine Centrifuged 10ml (spun) Salicylates 3.1 (<20) mg/dL U Opiates 300ng/mL cut Negative (Negative) Ur Oxycodone Screen Negative (Negative) Urine Methadone Screen Negative (Negative) Acetaminophen < 10 (10-30) ug/mL Ur Barbiturates Screen Negative (Negative) U Tricyclic Antidepress Negative (Negative) Ur Phencyclidine Scrn Negative (Negative) Ur Amphetamines Screen Negative (Negative) U Methamphetamines Scrn Negative (Negative) Ur MDMA Scrn (Ecstasy) Negative (Negative) U Benzodiazepines Scrn Negative (Negative) Urine Cocaine Screen Negative (Negative) U Marijuana (THC) Screen Positive H (Negative) Urine pH Normal (Normal) Urine Specific [place] Normal (Normal) Ethyl Alcohol 18 H ( - 10) mg/dL Ur Creatinine Normal (Normal) Point of Care Testing Glucose POC 77 Urine Dip Bedside Urine Glucose Negative Bedside Urine Bilirubin - Negative Bedside Urine Ketone - Negative Urine Specific [place] 1.020 Bedside Urine Occult Blood +/- Bedside Urine pH 6.0 Bedside Urine Protein +++ 300 Bedside Urine Urobilinogen - Negative Bedside Urine Nitrite - Negative Bedside Urine Leukocytes - Negative Esterase ECG Data Attestation: I personally reviewed and interpreted this ECG as follows: Interpretation: Sinus rhythm rate of 69 ND 202 QRS 82 QTC 497, nonspecific change T-waves inverted in 3, V1 V2 V3. Patient has prior from 07/29/2023, left axis deviation with nonspecific change. MDM Narrative Medical decision making narrative: 74-year-old female with report of hypoglycemia home with a glucose 30s, patient received dex with EMS, patient received another dose of dex, glucose here on recheck is 182. Patient was given shake as well as sandwich and breakfast was ordered while being evaluated she is alert although states she feels a little sweaty and nauseated. Patient's arrived shortly thereafter, he noted that she was up this morning they were looking at [employer] she had not eaten. He is unsure if she took her morning insulin but she was just started on 5 units of long-acting insulin in the morning on top of her normal regimen. She has not had anything to eat but he would noted they had lows intermittently throughout the week. He states that she told him that she felt funny, they went to attempt to check her sugar and she had forgotten how to use her equipment to check her glucose. She then sort of tense up with shaking her arms he states her face looked like it was not a lot of pain this lasted about 60 seconds. But then she continued to be altered until EMS arrived had glucose in the 30s and received dextrose. Patient is still somewhat sleepy but able to eat and drink here. He states that often when she has significant low she is very worn out for a prolonged period of time. He notes that she did have a hospitalization for back fracture, was hospitalized for about 10 days then spent about a month and rehab and just returned home a week ago. She states she had a lot of medication changes throughout that time but that her most recent change was the increase in her insulin. He states she did complain of a little bit of recent upper respiratory infection but no other recent complaints. Patient had a 2nd low had only had boost, she is eating her diet tray and is eating pancake and received another dose of dextrose. Patient's labs show white count of 5.6 hemoglobin is 10 fairly consistent with priors, platelets are 380, patient's sodium is 139 potassium is low at 3, this was replaced orally, CO2 is 15 with a chloride of 113, BUN 22, creatinine 2.14 but improved from July of 2023 when she was 3.16 and appears to range between 2 and 1.9 as of February of 2023. LFTs are slightly elevated 132 AST 58 ALT 156 alk-phos, bilirubin 0.3, lipase is 24. Troponin is negative, BNP is 2470. Salicylates is 3.1, acetaminophen level is 10 alcohol is 18 EKG shows nonspecific change UA is negative except for protein UDS positive for THC but no other changes. Head CT head CT shows no acute intracranial abnormality, mild ethmoid air cell opacification of the right and mild debora bullosa. Mild maxillary mucosal thickening seen. Chest x-ray possible mild opacity right lung base may represent atelectasis or early airspace disease consider future imaging surveillance assess for resolution. Patient was slowly dropping despite eating, recheck went down to 70 despite eating a meal including pancakes, shake has had several doses of IV dextrose patient was started on dextrose drip. Spoke with Dr. Gavin who accepts. . Critical Care Time Critical Care Time Critical Care Time: Yes Total Critical Care Time: 40 Attestation: The high probability of a clinically significant, sudden or life threatening deterioration of the cardiac, endocrine system(s) required my full and direct attention, intervention and personal management. The aggregate critical care time was [--] minutes. This time is in addition to time spent performing reported procedures but includes the following: [x] Data Review and interpretation [x] Patient assessment and monitoring of vital signs [x] Documentation [x] Medication orders and management Discharge Plan Departure Patient Disposition: Admitted As Inpatient Clinical Impression: Hypoglycemia, Hypokalemia Admit Date/Time: 10/17/23 12:54 Admit Provider: Clemente Gavin
--- NOTE | 2023-10-17 07:20 | EKG_ITS ---
[address] [address] Test Date: 2023-10-17 Pat Name: Piper Heath Department: [facility] Room: Gender: Female Weatherization Installer: AMBER : [id number] Requested By: Order Number: [id number] Reading MD: Clemente Gavin Measurements Intervals [place] Rate: 69 P: 61 TX: 202 QRS: -28 QRSD: 82 T: 0 QT: 464 QTc: 497 Interpretive Statements Normal sinus rhythm Prolonged QT Electronically Signed On 10-18-2023 9:45:46 PDT by Clemente Gavin
--- NOTE | 2023-10-17 07:28 | DI.RAD.S_ITS ---
PROCEDURE: XR CHEST 1V INDICATIONS: hypoglycemia TECHNIQUE: One view of the chest was acquired. COMPARISON: [facility], CR, XR CHEST 2V, 03/09/2023, 20:32. [facility], CR, XR CHEST 1V, 09/29/2022, 5:41. FINDINGS: Surgical changes and devices: None. Lungs and pleura: Low lung volumes. There is a possible mild opacity at the right lung base. Mediastinum: Heart size is at the upper limit of normal. Cardiomediastinal contours are unchanged Bones and chest wall: Degenerative findings. IMPRESSION: Possible mild opacity at the right lung base may represent atelectasis or early airspace disease. Consider future imaging surveillance to assess for resolution. Dictated by: Kamaljit Andre M.D. on 10/17/2023 at 8:36 Approved by: Kamaljit Andre M.D. on 10/17/2023 at 8:37
--- NOTE | 2023-10-17 07:43 | DI.CT.S_ITS ---
PROCEDURE: CT HEAD/BRAIN WO CON INDICATIONS: hypoglycemia, altered TECHNIQUE: Noncontrast 4.5 mm thick angled axial sections acquired from the foramen magnum to the vertex, with coronal and sagittal reformats. For radiation dose reduction, the following was used: automated exposure control, adjustment of mA and/or kV according to patient size. COMPARISON: [facility], CT, CT HEAD/BRAIN WO CON, 03/09/2023, 20:44. FINDINGS: Image quality: Diagnostic CSF spaces: Basal cisterns are patent. Lateral ventricles are symmetric. Volume: Vascular calcifications. Periventricular white matter disease is commonly seen with chronic microangiopathy. Volume loss is present. These findings are [id number] Brain: No intracranial hemorrhage. Cevallos-white differentiation is grossly maintained. Craniofacial structures: Mild ethmoid air cell opacification on the right and opacified debora bullosa. Mild maxillary mucosal thickening also seen. IMPRESSION: No acute intracranial abnormality. If there is high concern for parenchymal pathology, consider further evaluation with MRI. Dictated by: Kamaljit Andre M.D. on 10/17/2023 at 8:38 Approved by: Kamaljit Andre M.D. on 10/17/2023 at 8:40
[2023-10-17 07:51] LABS: Add Manual Diff / Slide Review NO; Basophils Absolute Auto 200 /uL (0-100); Basophils Percent Auto 3.9 % (0-2); Eosinophils Absolute Auto 0 /uL (0-450); Eosinophils Percent Auto 0.7 % (2-4); Hematocrit 29.6 % (36-46); Lymphocytes Absolute Auto 2500 /uL (1100-4500); Lymphocytes Percent Auto 45.1 % (25-40); Mean Corpuscular HGB Conc 33.6 % (30-36); Mean Corpuscular Hemoglobin 32.3 PG (26-34); Monocytes Absolute Auto 700 /uL (0-900); Monocytes Percent Auto 11.7 % (3-14); Neutrophils Absolute Auto 2200 /uL (1500-7000); Neutrophils Percent Auto 38.6 % (50-75); Platelet Count 380 X10^3/uL (150-400); Red Blood Cell Count 3.09 X10^6/uL (4.0-5.2); Red Cell Distribution Width 14.7 % (11.6-14.8); White Blood Cell Count 5.6 X10^3/uL (4.5-11.0)
[2023-10-17 07:56] LABS: Creatine Kinase 39 U/L (30-135)
[2023-10-17 07:59] LABS: Acetaminophen < 10 ug/mL (10-30); Alanine Aminotransferase 58 IU/L (<35); Albumin 3.3 g/dL (3.5-5.0); Albumin Globulin Ratio 0.9 (1.0-2.8); Alkaline Phosphatase 156 U/L (38-126); Aspartate Aminotransferase 132 IU/L (14-36); BUN Creatinine Ratio 10.3 (6-22); Bilirubin Total 0.3 mg/dL (0.2-1.3); Blood Urea Nitrogen 22 mg/dL (7-17); Calcium 8.6 mg/dL (8.4-10.2); Carbon Dioxide 15 mmol/L (22-32); Chloride 113 mmol/L (98-107); Estimated Glomerular Filt Rate 24 mL/min (>60); Ethanol (ETOH) 18 mg/dL; Globulin 3.6 g/dL (1.7-4.1); Glucose 54 mg/dL (80-110); HEMOLYSIS < 15 (0-50); Lipase 24 U/L (23-300); Salicylate 3.1 mg/dL (<20); Sodium 139 mmol/L (137-145); Total Protein 6.9 g/dL (6.3-8.2)
[2023-10-17 08:09] LABS: NT-proBNP (BNP-Adult 18+) 2470 pg/mL (<125); Troponin I < 0.012 ng/mL (0.01-0.034)
[2023-10-17] MEDS: DEXTROSE 50 % IN WATER 25 GM/50 ML SYRINGE IV (08:10)
[2023-10-17] MEDS: SODIUM CHLORIDE 0.9% 1,000 ML 150 ML IV (08:14)
--- NOTE | 2023-10-17 08:37 | PC.NURSE ---
This MEAT CUTTER assisted pt to eat provided breakfast by cutting divehi toast into small pieces and feeding pt offering next bite when pt done chewing.
[2023-10-17] MEDS: POTASSIUM CHLORIDE 20 MEQ TAB 40 MEQ PO (09:01)
[2023-10-17 11:14] LABS: UR Morphine/Opiate cutoff 300 Negative (Negative); Ur Creatinine Normal (Normal); Ur Specific Gravity Normal (Normal); Urine Amphetamines Negative (Negative); Urine Barbiturates Negative (Negative); Urine Benzodiazepines Negative (Negative); Urine Cocaine Negative (Negative); Urine MDMA Negative (Negative); Urine Methadone Negative (Negative); Urine Methamphetamines Negative (Negative); Urine Oxycodone Negative (Negative); Urine Phencyclidine Negative (Negative); Urine Tetrahydrocannabinol Positive (Negative); Urine Tricyclic Antidepressant Negative (Negative); Urine pH Normal (Normal)
[2023-10-17] MEDS: DEXTROSE 10 % IN WATER 1,000 ML 75 ML IV (11:53)
[2023-10-17 12:48] LABS: Bacteria Urine Occasional (0-1); Culture Indicated Urine Cult Not Indicated; RBC Urine 1-5/HPF (0-5/HPF); Squamous Epithelial Cell Urine 1-5 /HPF (0-5/HPF); Urine Volume 10mL (spun); WBC Urine 1-5/HPF (0-5/HPF)
[2023-10-17 12:49] LABS: Hyaline Casts Urine 0-1/LPF
--- NOTE | 2023-10-17 12:50 | PC.NURSE ---
Pt BG 77 after being on D10 drip. Dr. Gavin notified, verbal order to increase D10 gtt to 125mls/hr.
--- NOTE | 2023-10-17 13:49 | PM.HP.1 ---
History of Present Illness History of Present Illness Date Patient Seen: 10/17/23 Chief complaint: seizure, vomiting Narrative: From ED doctor: 4-year-old female with history of GERD, hypokalemia, hyponatremia, CKD, type 2 diabetes on insulin, hypertension, psoriatic arthritis, hyperlipidemia, hypothyroidism brought in by EMS for hypoglycemia. Patient does not recall incidents but was reportedly had a glucose 30, received dex EN route with EMS, had recheck in another amp of dex here in the department. She is 182 on recheck and was fed. Patient does not recall events from earlier today she notes she did had her insulin last night. She presumes she is at [facility], she knows the year the month she knows her name. Mentation appears to be improving. Patient states that she feels a little nauseated and sweaty. Denies any headache, denies any chest pain, states some mild shortness of breath, no vomiting. She denies any GI or urinary symptoms. No numbness tingling weakness of extremities. Patient states that she believes she had her insulin last night she does not know if she had any today. Her family is not at bedside but she was found by her this morning. Reports allergy to penicillin. S: She developed acute confusion this morning and then went into a generalized seizure. EMS arrived and she was hypoglycemic and given dextrose. She would recurrent hypoglycemia in the ED necessitating a dextrose infusion. She was started on Lantus about 3 weeks ago and has not changed the dose from 10 HS. She takes no oral diabetic medications. She was feeling normal yesterday she denies any recent fevers or chills. She was in the hospital in [place], at [facility], for about 3 weeks followed by 1 month long-term facility rehabilitation stay. She has been home for about 3 weeks. Upon arrival to the CCU, she was alert and oriented and feels much better. She was hypertensive. She did not take her medications this morning. [facility] Medical History Hypothyroidism GERD (gastroesophageal reflux disease) Chronic hypokalemia Hyperlipidemia Hypertension Type 2 diabetes mellitus Psoriasis Psoriatic arthritis Chronic kidney disease Social History household members: spouse and significant other Smoking Status: Former smoker alcohol intake: current substance use type: does not use Meds Home Medications and Allergies Home Medications Medication Instructions Recorded Confirmed Type One Touchverio In Vitro Strip 04/16/18 03/10/23 History acebutolol 400 mg capsule 400 mg PO DAILY 04/16/18 10/17/23 History albuterol sulfate 90 mcg/actuation 2 puff inhalation Q4-6H PRN 04/16/18 10/17/23 History aerosol inhaler (Ventolin HFA) Bronchodilation amlodipine 5 mg tablet 5 mg PO DAILY 04/16/18 10/17/23 History fluticasone 250 mcg-salmeterol 50 1 inh inhalation BID 04/16/18 10/17/23 History mcg/dose blistr powdr for inhalation (Advair Diskus) inhalational spacing device (E-Z 04/16/18 03/10/23 History Spacer) insulin NPH isoph U-100 human 100 45 unit SUBCUT QPM 04/16/18 10/17/23 History unit/mL subcutaneous suspension (Novolin N NPH U-100 Insulin isophane) insulin aspart U-100 100 unit/mL 4 - 10 unit SUBCUT QPM 04/16/18 10/17/23 History (3 mL) subcutaneous pen (Novolog FlexPen U-100 Insulin aspart) insulin syringe-needle U-100 0.3 04/16/18 03/10/23 History mL 29 gauge x 1/2 (BD Insulin Syringe) levothyroxine 75 mcg tablet 75 mcg PO DAILY 04/16/18 10/17/23 History (Synthroid) omeprazole 20 mg tablet,delayed 20 mg PO BID 04/16/18 10/17/23 History release pen needle, diabetic 31 gauge x 04/16/18 03/10/23 History 5/16 (Unifine Pentips) hydrochlorothiazide 12.5 mg tablet 25 mg PO DAILY 03/10/23 10/17/23 History hydrocodone 5 mg-acetaminophen 325 1 tab PO Q4HR 03/10/23 10/17/23 History mg tablet aspirin 81 mg capsule 81 mg PO DAILY 10/17/23 10/17/23 History escitalopram oxalate 10 mg tablet 10 mg PO DAILY 10/17/23 10/17/23 History (Lexapro) fenofibrate nanocrystallized 48 mg 48 mg PO DAILY 10/17/23 10/17/23 History tablet (Tricor) infliximab 100 mg intravenous 100 mg IV SEEINSTR 10/17/23 10/17/23 History solution (Remicade) rosuvastatin 40 mg tablet (Crestor) 40 mg PO DAILY 10/17/23 10/17/23 History sodium chloride 0.65 % nasal spray 1 spray intranasal BID 10/17/23 10/17/23 History aerosol Allergies Allergy/AdvReac Type Severity Reaction Status Date / Time Penicillins Allergy Severe Difficulty Verified 07/29/23 12:30 Breathing Review of Systems Review of Systems Narrative: All else reviewed and otherwise unremarkable except as noted in the history and physical. Exam Vital Signs (past 8 hours): - 10/17/23 06:51 10/17/23 07:00 10/17/23 07:00 Temperature 98.4 F Pulse Rate 74 73 Respiratory Rate 18 16 Blood Pressure 195/96 H 197/98 H Pulse Oximetry 97 98 Oxygen Delivery Method Room Air Room Air 10/17/23 07:30 10/17/23 07:31 10/17/23 07:31 Temperature Pulse Rate 70 70 Respiratory Rate 22 17 Blood Pressure 178/84 H Pulse Oximetry 100 100 Oxygen Delivery Method Room Air 10/17/23 08:01 10/17/23 08:02 10/17/23 08:02 Temperature Pulse Rate 67 66 Respiratory Rate 17 Blood Pressure 178/85 H Pulse Oximetry 100 100 Oxygen Delivery Method Room Air 10/17/23 08:30 10/17/23 08:30 10/17/23 09:00 Temperature Pulse Rate 71 68 Respiratory Rate 29 H 25 H Blood Pressure 169/79 H Pulse Oximetry 100 100 Oxygen Delivery Method Room Air 10/17/23 09:30 10/17/23 10:00 10/17/23 10:30 Temperature Pulse Rate 67 70 72 Respiratory Rate 24 19 17 Blood Pressure Pulse Oximetry 100 99 Oxygen Delivery Method Room Air Room Air 10/17/23 10:30 10/17/23 11:00 10/17/23 11:00 Temperature Pulse Rate 69 Respiratory Rate 22 Blood Pressure 165/77 H 165/76 H Pulse Oximetry 98 Oxygen Delivery Method 10/17/23 11:30 10/17/23 11:30 10/17/23 12:00 Temperature Pulse Rate 74 Respiratory Rate 16 Blood Pressure 171/80 H 176/84 H Pulse Oximetry 99 Oxygen Delivery Method Room Air 10/17/23 12:00 10/17/23 12:30 10/17/23 12:30 Temperature Pulse Rate 77 71 Respiratory Rate 29 H Blood Pressure 167/75 H Pulse Oximetry 99 98 Oxygen Delivery Method Room Air Room Air 10/17/23 13:00 Temperature Pulse Rate 69 Respiratory Rate 15 Blood Pressure Pulse Oximetry 98 Oxygen Delivery Method Nasal Cannula Oxygen Delivery Method Nasal Cannula Narrative Exam Narrative: NAD, alert and oriented, fluent speech, calm. Normocephalic skull, EOMI, anicteric sclera, symmetric pupils. Oropharynx unremarkable, no droop. Neck supple, midline trachea, no adenopathy. Lungs clear, normal rate and effort. Heart regular, no murmur gallop or rub. Abdomen is soft, non distended and non tender. Extremities are free of edema. Skin is free of rash or lesions. Joints are not swollen or deformed. Judgment appears to be normal. Objective Imaging Chest x-ray: Radiologist's impression: Possible mild opacity at the right lung base may represent atelectasis or early airspace disease. Consider future imaging surveillance to assess for resolution. CT scan - head: Radiologist's impression: CSF spaces: Basal cisterns are patent. Lateral ventricles are symmetric. Volume: Vascular calcifications. Periventricular white matter disease is commonly seen with chronic microangiopathy. Volume loss is present. These findings are [id number] Brain: No intracranial hemorrhage. [place]evallos-white differentiation is grossly maintained. Craniofacial structures: Mild ethmoid air cell opacification on the right and opacified debora bullosa. Mild maxillary mucosal thickening also seen. Labs 10/17/23 06:45 10/17/23 06:45 Labs: Laboratory Results - last 24 hr 10/17/23 10/17/23 06:45 10:52 WBC 5.6 RBC 3.09 L Hgb 10.0 L Hct 29.6 L MCV 96.0 MCH 32.3 MCHC 33.6 RDW 14.7 Plt Count 380 Neut % (Auto) 38.6 L Lymph % (Auto) 45.1 H Richardson % (Auto) 11.7 Eos % (Auto) 0.7 L Baso % (Auto) 3.9 H Neut # (Auto) 2200 Lymph # (Auto) 2500 Richardson # (Auto) 700 Eos # (Auto) 0 Baso # (Auto) 200 H Sodium 139 Potassium 3.0 L Chloride 113 H Carbon Dioxide 15 L BUN 22 H Creatinine 2.14 H Estimated GFR 24 L BUN/Creatinine Ratio 10.3 Glucose 54 L Calcium 8.6 Total Bilirubin 0.3 AST 132 H ALT 58 H Alkaline Phosphatase 156 H Total Creatine Kinase 39 Troponin I < 0.012 NT-Pro-B Natriuret Pep 2470 H Total Protein 6.9 Albumin 3.3 L Globulin 3.6 Albumin/Globulin Ratio 0.9 L Lipase 24 Urine RBC 1-5/hpf Urine WBC 1-5/hpf Ur Squamous Epith Cells 1-5 /hpf Urine Bacteria Occasional (0-1) Hyaline Casts 0-1/lpf Ur Culture Indicated? Cult not indicated Vol Urine Centrifuged 10ml (spun) Salicylates 3.1 U Opiates 300ng/mL cut Negative Ur Oxycodone Screen Negative Urine Methadone Screen Negative Acetaminophen < 10 Ur Barbiturates Screen Negative U Tricyclic Antidepress Negative Ur Phencyclidine Scrn Negative Ur Amphetamines Screen Negative U Methamphetamines Scrn Negative Ur MDMA Scrn (Ecstasy) Negative U Benzodiazepines Scrn Negative Urine Cocaine Screen Negative U Marijuana (THC) Screen Positive H Urine pH Normal Urine Specific [place] Normal Ethyl Alcohol 18 H Ur Creatinine Normal Assessment & Plan Assessment & Plan narrative: 1. Hypoglycemia, present on admission and active. 2. Hypokalemia, present on admission and active. 3. DARIN and chronic kidney disease stage 2, present on admission and active. 4. Alcohol, present on admission and active. 5. DM 2, insulin dependent, present on admission and active. 6. Psoriatic arthritis, present on admission and active. 7. Hypertension, present on admission and active. 8. Hypothyroidism, present on admission and active. PLAN: -D10 drip at 1:25 a.m., monitor glucose Q 1 hour. -hold insulin. -replete potassium. -monitor renal function with IV fluids. -monitor blood pressure and resume blood pressure medications as needed. -continue thyroid supplementation. -start oral normal blood pressure medications, as needed hydralazine as needed. She lives in [place] with her . She is full resuscitation, confirmed today. Her has her proxy decision maker. Time Spent With Patient Time with patient: 30 to 49 minutes with 50% spent counseling/coordinating care
--- NOTE | 2023-10-17 14:18 | PC.ADMIT ---
[address] [facility] Unit G3 Admission Note: Admitted from ED via stretcher, slide board used for transfer to ICU bed. Patient A/O x3, BP 193/127, all other vitals normal. Bed at bedside helping with admission process and questions. Dr Gavin alerted to patient arrival and hypertension, awaiting further orders. The patient,Piper Heath,74 y/o, was given written information regarding hospital policies, unit procedures and contact persons. Patient's smoking status: Former smoker. Vital Signs - 8 hr 10/17/23 06:51 10/17/23 07:00 10/17/23 07:00 Temperature 98.4 F Pulse Rate 74 73 Respiratory Rate 18 16 Blood Pressure 195/96 H 197/98 H Pulse Oximetry 97 98 Oxygen Delivery Method Room Air Room Air 10/17/23 07:30 10/17/23 07:31 10/17/23 07:31 Temperature Pulse Rate 70 70 Respiratory Rate 22 17 Blood Pressure 178/84 H Pulse Oximetry 100 100 Oxygen Delivery Method Room Air 10/17/23 08:01 10/17/23 08:02 10/17/23 08:02 Temperature Pulse Rate 67 66 Respiratory Rate 17 Blood Pressure 178/85 H Pulse Oximetry 100 100 Oxygen Delivery Method Room Air 10/17/23 08:30 10/17/23 08:30 10/17/23 09:00 Temperature Pulse Rate 71 68 Respiratory Rate 29 H 25 H Blood Pressure 169/79 H Pulse Oximetry 100 100 Oxygen Delivery Method Room Air 10/17/23 09:30 10/17/23 10:00 10/17/23 10:30 Temperature Pulse Rate 67 70 72 Respiratory Rate 24 19 17 Blood Pressure Pulse Oximetry 100 99 Oxygen Delivery Method Room Air Room Air 10/17/23 10:30 10/17/23 11:00 10/17/23 11:00 Temperature Pulse Rate 69 Respiratory Rate 22 Blood Pressure 165/77 H 165/76 H Pulse Oximetry 98 Oxygen Delivery Method 10/17/23 11:30 10/17/23 11:30 10/17/23 12:00 Temperature Pulse Rate 74 Respiratory Rate 16 Blood Pressure 171/80 H 176/84 H Pulse Oximetry 99 Oxygen Delivery Method Room Air 10/17/23 12:00 10/17/23 12:30 10/17/23 12:30 Temperature Pulse Rate 77 71 Respiratory Rate 29 H Blood Pressure 167/75 H Pulse Oximetry 99 98 Oxygen Delivery Method Room Air Room Air 10/17/23 13:00 10/17/23 13:30 10/17/23 13:37 Temperature Pulse Rate 69 71 Respiratory Rate 15 Blood Pressure 192/88 H Pulse Oximetry 98 99 Oxygen Delivery Method Nasal Cannula 10/17/23 13:37 10/17/23 14:00 10/17/23 14:00 Temperature Pulse Rate 69 69 Respiratory Rate 16 24 Blood Pressure 193/127 H Pulse Oximetry 97 99 Oxygen Delivery Method
[2023-10-17] MEDS: AMLODIPINE 5 MG TABLET PO (14:52)
[2023-10-17] MEDS: OXYMETAZOLINE NASAL SPRAY 30 ML 2 SPRAYS NASAL (14:52)
[2023-10-17] MEDS: ESCITALOPRAM 10 MG TABLET PO (14:52)
[2023-10-17 15:10] LABS: MRSA (Nasal) PCR NOT DETECTED (Not Detect)
[2023-10-17] MEDS: HYDROCODONE/ACET 5/325 TABLET 1 TAB PO ×2 (15:19→20:29)
[2023-10-17] MEDS: ALBUTEROL 2.5 MG/3 ML NEB (ADULT) INH ×2 (15:24→20:11)
[2023-10-17] MEDS: SODIUM CHLORIDE 0.9% FLUSH 10 ML IV (15:41)
[2023-10-17] MEDS: HYDRALAZINE 20 MG/ML VIAL 10 MG IV (15:41)
[2023-10-17] MEDS: BUDESONIDE 0.5 MG/2 ML NEB INH (20:11)
[2023-10-17] MEDS: PANTOPRAZOLE DR 20 MG TABLET PO (20:29)
[2023-10-17] MEDS: ATORVASTATIN 20 MG TABLET 80 MG PO (20:30)
[2023-10-18] VITALS (24 sets, daily range): BP systolic 150–181; BP diastolic 67–112; PULSE 66–87; RESP 12–38; TEMP 36.6–36.7; O2SAT 93–99
[2023-10-18] MEDS: SODIUM CHLORIDE 0.9% FLUSH 10 ML IV ×2 (00:25→08:33)
[2023-10-18] MEDS: HYDROCODONE/ACET 5/325 TABLET 1 TAB PO ×3 (00:25→13:34)
[2023-10-18 04:51] LABS: Add Manual Diff / Slide Review NO; Basophils Absolute Auto 200 /uL (0-100); Basophils Percent Auto 1.9 % (0-2); Eosinophils Absolute Auto 0 /uL (0-450); Eosinophils Percent Auto 0.3 % (2-4); Hemoglobin 8.7 g/dL (12.0-16.0); Lymphocytes Absolute Auto 2800 /uL (1100-4500); Lymphocytes Percent Auto 31.8 % (25-40); Mean Corpuscular HGB Conc 34.9 % (30-36); Mean Corpuscular Hemoglobin 33.3 PG (26-34); Mean Corpuscular Volume 95.5 fL (80-100); Monocytes Absolute Auto 800 /uL (0-900); Monocytes Percent Auto 9.1 % (3-14); Neutrophils Absolute Auto 5000 /uL (1500-7000); Neutrophils Percent Auto 56.9 % (50-75); Platelet Count 297 X10^3/uL (150-400); Red Blood Cell Count 2.62 X10^6/uL (4.0-5.2); Red Cell Distribution Width 14.7 % (11.6-14.8); White Blood Cell Count 8.7 X10^3/uL (4.5-11.0)
[2023-10-18 05:02] LABS: BUN Creatinine Ratio 11.3 (6-22); Blood Urea Nitrogen 25 mg/dL (7-17); Calcium 7.9 mg/dL (8.4-10.2); Carbon Dioxide 20 mmol/L (22-32); Chloride 110 mmol/L (98-107); Estimated Glomerular Filt Rate 23 mL/min (>60); Glucose 152 mg/dL (80-110); HEMOLYSIS < 15 (0-50); Potassium 3.9 mmol/L (3.4-5.1); Sodium 134 mmol/L (137-145)
[2023-10-18] MEDS: LEVOTHYROXINE 75 MCG TABLET PO (05:59)
[2023-10-18] MEDS: ALBUTEROL 2.5 MG/3 ML NEB (ADULT) INH ×3 (07:34→16:42)
[2023-10-18] MEDS: BUDESONIDE 0.5 MG/2 ML NEB INH (07:34)
[2023-10-18] MEDS: PANTOPRAZOLE DR 20 MG TABLET PO (08:15)
[2023-10-18] MEDS: ESCITALOPRAM 10 MG TABLET PO (08:15)
[2023-10-18] MEDS: ASPIRIN EC 81 MG TABLET PO (08:15)
[2023-10-18] MEDS: FENOFIBRATE, MICRONIZED 67 MG CAPSULE PO (08:15)
[2023-10-18] MEDS: hydroCHLOROthiazide 25 MG TABLET PO (08:15)
[2023-10-18] MEDS: AMLODIPINE 5 MG TABLET PO ×2 (08:15→13:00)
--- NOTE | 2023-10-18 10:52 | CM.DANOTE ---
Initial DCP Assessment Visit Note Reviewed EMR and team rounds for pt's medical status and updates. Met with pt's spouse at bedside to introduce self and role, pt was found to be sleeping, appearing comfortable and in no distress. Pt lives independently with her spouse in their own RV camper at [facility]. Spouse will also plan to transport pt home once she's medically stable, anticipated for Wednesday 10/18. No identified DCP needs at this time. Payor: Medicare PCP: Rakesh/Francheska Pt is a 74 year-old F with a PMH of GERD, hypokalemia, SKD, type 2-diabetes on insulin brought to the ED yesterday afternoon via EMS for hypoglycemia and small seizure. Her glucose was found to be 30,she presented as confused/AMS. She received Dex and fluids by EMS en route and cleared mentally by the time she arrived to the ED, she was also hypokalemic. Plan was made to asmit pt and continue to monitor glucose, renal function w/IV fluids, and monitor blood pressure. Despite several doses of Dex and ample amounts of food, she has continued to go low overnight. Per her spouse, she typically will sleep and need more recovery time after a hypoglycemic episode. Spouse also shares that pt has several DME at home, including a walker, bath chair, and chair lift into the RV, he is her primary cg as well. DCP will continue to follow and assist with any further evolving needs throughout the remainder of her stay. Discharge Planning/Care Management CM Discharge Assessment Start: 10/18/23 10:32 Freq: Status: Active Protocol: Document 10/18/23 10:32 DPL (Rec: 10/18/23 10:33 DPL [id number]) Discharge Planning Assessment Assigned [facility] Aide [id number] Lopez Advance Directives? No History Provided By Family Member,Medical Record Has Patient been admitted in last 30 No days? Prior Living Arrangements Apartment/Condo Household Members spouse,significant other Type of transporation used prior to Drives own vehicle admit Independent with ADL's Yes Is patient alert and oriented? Yes Comment N/A Caregiver for Another No Comment No identified home d/c needs at this time. Barriers to Discharge No Discharge Plan Home Transportation Arrangement Spouse Referrals Initiated None needed Whiteboard Updated in Patient Room with Yes name and ext. # of [facility] Aide Review Status In Process Please Provide Date Initial DC 10/18/23 Assessment Was Performed
[2023-10-18] MEDS: INSULIN LISPRO 100 UNIT/ML 3ML VIAL SUBCUT (12:15)
--- NOTE | 2023-10-18 12:58 | PM.DS.1 ---
History of Present Illness History of Present Illness Chief complaint: seizure, vomiting Narrative: From ED doctor: 4-year-old female with history of GERD, hypokalemia, hyponatremia, CKD, type 2 diabetes on insulin, hypertension, psoriatic arthritis, hyperlipidemia, hypothyroidism brought in by EMS for hypoglycemia. Patient does not recall incidents but was reportedly had a glucose 30, received dex EN route with EMS, had recheck in another amp of dex here in the department. She is 182 on recheck and was fed. Patient does not recall events from earlier today she notes she did had her insulin last night. She presumes she is at [facility], she knows the year the month she knows her name. Mentation appears to be improving. Patient states that she feels a little nauseated and sweaty. Denies any headache, denies any chest pain, states some mild shortness of breath, no vomiting. She denies any GI or urinary symptoms. No numbness tingling weakness of extremities. Patient states that she believes she had her insulin last night she does not know if she had any today. Her family is not at bedside but she was found by her this morning. Reports allergy to penicillin. S: She developed acute confusion this morning and then went into a generalized seizure. EMS arrived and she was hypoglycemic and given dextrose. She would recurrent hypoglycemia in the ED necessitating a dextrose infusion. She was started on Lantus about 3 weeks ago and has not changed the dose from 10 HS. She takes no oral diabetic medications. She was feeling normal yesterday she denies any recent fevers or chills. She was in the hospital in [place], at [facility], for about 3 weeks followed by 1 month senior living facility rehabilitation stay. She has been home for about 3 weeks. Upon arrival to the CCU, she was alert and oriented and feels much better. She was hypertensive. She did not take her medications this morning. Discharge Providers Provider Date of admission: 10/17/23 12:54 Discharge Date: 10/18/23 Primary care physician: Doctor Jeff MD Discharge provider: Clemente Gavin MD Summary Hospital Course Discharge Diagnosis: 1. Hypoglycemia, present on admission and resolved. 2. Hypokalemia, present on admission and resolved. 3. DARIN and chronic kidney disease stage 2, present on admission and active. 4. Alcohol, present on admission and active. 5. DM 2, insulin dependent, present on admission and active. 6. Psoriatic arthritis, present on admission and active. 7. Hypertension, present on admission and active. 8. Hypothyroidism, present on admission and active. Hospital Course: She was admitted with hypoglycemia resulting in generalized tonic-clonic activity. She was treated with a dextrose boluses and then infusion. She does take long-acting insulin and this was held. She weaned off from the infusion of dextrose after several hours and did well overnight. There was no evidence of infection. She does have what appears to be fairly uncontrolled hypertension and amlodipine was started and up titrated. On the day of discharge she was at baseline and eating without difficulty. She was felt to be stable for discharge home and we will initially hold her long-acting use correctional and insulin for the next couple of days. She will be started on amlodipine 10 daily and hydrochlorothiazide will be increased from 12.5-25 daily. The will be sending me several glucose measurements a day and 2 blood pressure measurements a day over the next several days and we can reintroduce long-acting insulin between now and her primary care follow up. Status at Discharge Cognitive/behavioral status at discharge: at baseline, oriented Functional status at discharge: independent ambulation Overall status at discharge: patient is back to baseline Time Spent with Patient Time spent: Greater than 30 minutes Exam Vital Signs (past 8 hours): - 10/18/23 05:00 10/18/23 05:00 10/18/23 05:30 Temperature Pulse Rate 72 70 Respiratory Rate 15 14 Blood Pressure 165/76 H Pulse Oximetry 98 96 Oxygen Delivery Method 10/18/23 06:00 10/18/23 06:00 10/18/23 06:30 Temperature Pulse Rate 69 68 Respiratory Rate 21 14 Blood Pressure 169/89 H Pulse Oximetry 97 98 Oxygen Delivery Method 10/18/23 07:00 10/18/23 07:00 10/18/23 07:00 Temperature Pulse Rate 67 Respiratory Rate 14 Blood Pressure 181/79 H Pulse Oximetry 98 Oxygen Delivery Method Room Air 10/18/23 07:30 10/18/23 08:00 10/18/23 08:00 Temperature Pulse Rate 66 67 Respiratory Rate 13 20 Blood Pressure 174/112 H Pulse Oximetry 97 97 Oxygen Delivery Method 10/18/23 08:09 10/18/23 09:40 10/18/23 12:00 Temperature 97.9 F Pulse Rate 72 71 Respiratory Rate 38 H 17 Blood Pressure 177/88 H 169/78 H Pulse Oximetry 98 Oxygen Delivery Method Oxygen Delivery Method Room Air Narrative Exam Narrative: NAD, alert and oriented. Fluent speech. Lungs are clear, normal rate and effort. Heart is regular, no murmur gallop or rub. Abdomen is soft, non distended. Extremities are free of edema. Objective Imaging Multiple studies:: Radiologist's impression: Chest x-ray: Radiologist's impression: Possible mild opacity at the right lung base may represent atelectasis or early airspace disease. Consider future imaging surveillance to assess for resolution. CT scan - head: Radiologist's impression: CSF spaces: Basal cisterns are patent. Lateral ventricles are symmetric. Volume: Vascular calcifications. Periventricular white matter disease is commonly seen with chronic microangiopathy. Volume loss is present. These findings are [id number] Brain: No intracranial hemorrhage. Cevallos-white differentiation is grossly maintained. Craniofacial structures: Mild ethmoid air cell opacification on the right and opacified debora bullosa. Mild maxillary mucosal thickening also seen. Labs 10/18/23 04:03 10/18/23 04:03 Labs: Laboratory Results - last 24 hr 10/17/23 10/18/23 13:50 04:03 WBC 8.7 D RBC 2.62 L Hgb 8.7 L Hct 25.0 L MCV 95.5 MCH 33.3 MCHC 34.9 RDW 14.7 Plt Count 297 Neut % (Auto) 56.9 Lymph % (Auto) 31.8 Moody % (Auto) 9.1 Eos % (Auto) 0.3 L Baso % (Auto) 1.9 Neut # (Auto) 5000 Lymph # (Auto) 2800 Moody # (Auto) 800 Eos # (Auto) 0 Baso # (Auto) 200 H Sodium 134 L Potassium 3.9 Chloride 110 H Carbon Dioxide 20 L BUN 25 H Creatinine 2.22 H Estimated GFR 23 L BUN/Creatinine Ratio 11.3 Glucose 152 H Calcium 7.9 L Nasal Screen MRSA (PCR) Not detected PFSH Medical History Hypothyroidism GERD (gastroesophageal reflux disease) Chronic hypokalemia Hyperlipidemia Hypertension Type 2 diabetes mellitus Psoriasis Psoriatic arthritis Chronic kidney disease Social History household members: spouse and significant other Smoking Status: Former smoker alcohol intake: current substance use type: does not use Discharge Assessment & Plan Assessment and Plan Assessment: 1. Hypoglycemia, present on admission and resolved. 2. Hypokalemia, present on admission and resolved. 3. DARIN and chronic kidney disease stage 2, present on admission and active. Baseline Cr around 2.0. 4. Alcohol, present on admission and active. 5. DM 2, insulin dependent, present on admission and active. 6. Psoriatic arthritis, present on admission and active. 7. Hypertension (likely poorly controlled), present on admission and active. 8. Hypothyroidism, present on admission and active. Plan of Treatment: Hold long-acting insulin and use correctional for the next 1-2 days with close follow up by telephone with me. We will up titrate the long-acting slowly as needed. Increased hydrochlorothiazide 25 daily and added amlodipine 10 daily with blood pressure monitoring and close follow up. Primary care within the next week. Discharge Plan Discharge Plan Patient Disposition: Home Provider Discharge Comment: Stable for discharge home, we will hold long-acting insulin for now and increase blood pressure medications. Discharge orders & Medications Prescriptions: New amlodipine 10 mg tablet 10 mg PO DAILY Qty: 30 2RF hydrochlorothiazide 25 mg tablet 25 mg PO DAILY Qty: 30 2RF Continued hydrocodone-acetaminophen 5-325 mg tablet 1 tab PO Q4HR infliximab [Remicade] 100 mg Recon Soln 100 mg IV SEEINSTR Rx Instructions: Infuse into a venous catheter Managed by Dr. Palacio escitalopram oxalate [Lexapro] 10 mg Tablet 10 mg PO DAILY sodium chloride 0.65 % Aerosol,[place] 1 spray INTRANASAL BID rosuvastatin [Crestor] 40 mg Tablet 40 mg PO DAILY fenofibrate nanocrystallized [Tricor] 48 mg Tablet 48 mg PO DAILY aspirin 81 mg Capsule 81 mg PO DAILY Novolin N NPH U-100 Insulin 100 unit/mL Suspension 45 unit SUBCUT QPM insulin aspart U-100 [Novolog FlexPen U-100 Insulin] 100 unit/mL Insulin Pen 4 - 10 unit SUBCUT QPM (DME) insulin syringe-needle U-100 [BD Insulin Syringe] 0.3 mL 29 gauge x 1/2 Syringe fluticasone propion-salmeterol [Advair Diskus] 250-50 mcg/dose Blister With Device 1 inh INHALATION BID acebutolol 400 mg Capsule 400 mg PO DAILY levothyroxine [Synthroid] 75 mcg Tablet 75 mcg PO DAILY Patient Comments: Patient stopped taking, stating it's making her sick. albuterol sulfate [Ventolin HFA] 90 mcg/actuation Hfa Aerosol Inhaler 2 puff INHALATION Q4-6H PRN (Reason: Bronchodilation) omeprazole 20 mg Tablet,Delayed Release (Dr/Ec) 20 mg PO BID (DME) pen needle, diabetic [Unifine Pentips] 31 gauge x 5/16 Needle (DME) E-Z Spacer Spacer (DME) One Touchverio In Vitro Strip strip Discontinued hydrochlorothiazide 12.5 mg tablet 25 mg PO DAILY amlodipine 5 mg Tablet 5 mg PO DAILY Follow up/Referrals: Doctor Jeff, [Primary Care Provider] - Diet/Activity/Treatments Diet: Carb-consistent/Diabetic Visit Report/Discharge Packet Instructions: DI for Hypoglycemia Stand Alone Forms: Patient Portal/API Discharge Data Primary Care Provider: Doctor Jeff
--- NOTE | 2023-10-18 13:44 | CM.DPC ---
DCP Cont. Update-pt has been medically cleared for home d/c. Per family's request, this SURGICAL SCRUB TECHNICIAN sent referral and F/F to [facility] for home f/u. SURGICAL SCRUB TECHNICIAN also provided the contact information for [employer], discussed Paid Leave of [place] w/spouse as a way for him to obtain FMLA/paid, he will also plan to stay home tomorrow from work in order to assist with some residual balance and shakiness that pt is feeling concerned about in terms of being alone the first day post-d/c. No further DCP needs identified at this time.
== END 2023-10-18 16:49 | disposition home health service (06) | DRG 638 ==
LOC: ED 11:56 → AC 12:55 → ICU 13:01
PROVIDERS: Admitting Provider Hospitalist; Emergency Provider Emergency Medicine; Referring Provider Emergency Medicine; Visit Provider Hospitalist
DX: E11.649 Type 2 diabetes mellitus with hypoglycemia without coma (principal); D84.821 Immunodeficiency due to drugs; N17.9 Acute kidney failure, unspecified; E87.6 Hypokalemia; E11.22 Type 2 diabetes mellitus with diabetic chronic kidney disease; I12.9 Hypertensive chronic kidney disease with stage 1 through stage 4 chronic kidney disease, or unspecified chronic kidney disease; N18.2 Chronic kidney disease, stage 2 (mild); L40.50 Arthropathic psoriasis, unspecified; E03.9 Hypothyroidism, unspecified; K21.9 Gastro-esophageal reflux disease without esophagitis; E78.5 Hyperlipidemia, unspecified; Z79.620 Long term (current) use of immunosuppressive biologic; Z79.4 Long term (current) use of insulin; Z87.891 Personal history of nicotine dependence
CPT/HCPCS: 36415; 70450; 71045; 80048; 80053; 80305; 80320; 80329; 81003; 81015; 82550; 82962; 83690; 83880; 84484; 85025; 87797; 93005; 94640; 94762; 96374; 99285; 99291; G0480; J0360; J1815; J7613

== ENCOUNTER 2024-01-04 00:11 | Emergency (ER) | payer MEDICARE, OTHER, SELFPAY ==
[2023-10-17 12:59] VITALS: BMI 22.9
[2024-01-04] VITALS (12 sets, daily range): BP systolic 85–127; BP diastolic 49–56; PULSE 76–80; RESP 16–18; TEMP 36.2; O2SAT 94–100; BMI 21.2
--- NOTE | 2024-01-04 00:24 | ED_ITS ---
HPI - Recheck/Abnormal Lab/Rx General Chief Complaint: Recheck/Abnormal Lab/Rx Stated Complaint: Generalized pain & nausea Time Seen by Provider: 01/04/24 00:15 Source: patient, family and EMS Mode of arrival: EMS Limitations: no limitations History of Present Illness HPI narrative: Patient is a 74-year-old female. Has a history of arthritis and fibromyalgia and other chronic pain issues. States she receives a Remicade infusion every several weeks. Patient's states that for the week prior to the infusion in the week after the infusion she has a increase in pain. She missed her last infusion. She was 2 weeks late because she ?got sick? she was scheduled to have an infusion on Thursday this week. Patient's states that her response to pain is vomiting. Over the past couple days she has been unable to take her medications because of vomiting. She was pain medication at home but she was unable to hold it down. She does have nausea medication at home but she states the Zofran also makes her nauseous. This is happened to her in the past. She comes in the emergency department to get fluids and pain control. Related Data Home Medications Medication Instructions Recorded Confirmed [employer]verio In Vitro Strip 04/16/18 03/10/23 acebutolol 400 mg capsule 400 mg PO DAILY 04/16/18 01/04/24 albuterol sulfate 90 mcg/actuation 2 puff inhalation Q4-6H PRN 04/16/18 01/04/24 aerosol inhaler (Ventolin HFA) Bronchodilation fluticasone 250 mcg-salmeterol 50 1 inh inhalation BID 04/16/18 01/04/24 mcg/dose blistr powdr for inhalation (Advair Diskus) inhalational spacing device (E-Z 04/16/18 03/10/23 Spacer) insulin NPH isoph U-100 human 100 5 unit SUBCUT QPM 04/16/18 01/04/24 unit/mL subcutaneous suspension (Novolin N NPH U-100 Insulin isophane) insulin aspart U-100 100 unit/mL 4 - 10 unit SUBCUT QPM 04/16/18 01/04/24 (3 mL) subcutaneous pen (Novolog FlexPen U-100 Insulin aspart) insulin syringe-needle U-100 0.3 04/16/18 03/10/23 mL 29 gauge x 1/2 (BD Insulin Syringe) levothyroxine 75 mcg tablet 100 mcg PO DAILY 04/16/18 01/04/24 (Synthroid) omeprazole 20 mg tablet,delayed 20 mg PO BID 04/16/18 01/04/24 release pen needle, diabetic 31 gauge x 04/16/18 03/10/2309/02 (Unifine Pentips) hydrocodone 5 mg-acetaminophen 325 1 tab PO Q8H 03/10/23 01/04/24 mg tablet aspirin 81 mg capsule 81 mg PO DAILY 10/17/23 01/04/24 escitalopram oxalate 10 mg tablet 10 mg PO DAILY 10/17/23 01/04/24 (Lexapro) fenofibrate nanocrystallized 48 mg 48 mg PO DAILY 10/17/23 10/17/23 tablet (Tricor) infliximab 100 mg intravenous 100 mg IV SEEINSTR 10/17/23 01/04/24 solution (Remicade) rosuvastatin 40 mg tablet (Crestor) 40 mg PO DAILY 10/17/23 01/04/24 sodium chloride 0.65 % nasal spray 1 spray intranasal BID 10/17/23 10/17/23 aerosol hydroxyzine HCl 25 mg tablet 25 mg PO Q4-6H PRN pain 01/04/24 01/04/24 ondansetron 4 mg disintegrating 4 - 8 mg PO Q6H PRN nausea/vomiting 01/04/24 01/04/24 tablet Previous Rx's Medication Instructions Recorded amlodipine 10 mg tablet 10 mg PO DAILY #30 tabs 10/18/23 hydrochlorothiazide 25 mg tablet 25 mg PO DAILY #30 tabs 10/18/23 Allergies Allergy/AdvReac Type Severity Reaction Status Date / Time Penicillins Allergy Severe Difficulty Verified 07/29/23 12:30 Breathing Review of Systems Review of Systems ROS Unobtainable: All systems reviewed & are unremarkable except as noted in HPI and below Patient History Medical History Hypothyroidism GERD (gastroesophageal reflux disease) Chronic hypokalemia Hyperlipidemia Hypertension Type 2 diabetes mellitus Psoriasis Psoriatic arthritis Chronic kidney disease Social History household members: spouse and significant other Smoking Status: Former smoker alcohol intake: current substance use type: does not use Smoking Status: Former smoker alcohol intake frequency: a few times a week Substance Use Type: does not use Exam Initial Vital Signs Initial Vital Signs: Vital Signs Temperature 97.1 F L 01/04/24 00:16 Pulse Rate 77 01/04/24 00:16 Respiratory Rate 16 01/04/24 00:16 Blood Pressure 95/53 L 01/04/24 00:16 Pulse Oximetry 94 01/04/24 00:16 Oxygen Delivery Method Room Air 01/04/24 00:16 Const General: cooperative and No ill appearing [facility] Head: normal to inspection and normocephalic Resp Effort & Inspection: normal respiratory effort Cardio Rate: regular rate Skin General: no rashes or lesions noted Neuro General: patient alert, patient awake, patient oriented x3 and moves all extremities Extrem General: capillary refill normal Course Orders Ordered: ED Orders 01/04/24 00:25 Basic Metabolic Panel Stat Complete Blood Count AUTO DIFF Stat 01/04/24 01:09 VBG [Venous Blood Gas] STAT 01/04/24 01:22 Venous Blood Gas Routine 01/04/24 01:35 Creatinine Urine Random Stat Sodium Urine Random Stat Urinalysis and Microscopic Stat 01/04/24 02:09 Hepatic (Liver) Panel Stat Lactate (Lactic Acid) Stat Lipase Stat 01/04/24 02:48 Blood Culture Stat Sodium Chloride (Normal Saline 0.9%) 1,000 mls @ 150 mls/hr IV CONT EWRNER Last Admin: 01/04/24 01:55 Dose: 150 mls/hr Documented By: BRENT Discontinued Medications Hydromorphone HCl (Hydromorphone 1 Mg Inj) 1 mg IV NOW ONE Stop: 01/04/24 00:25 Last Admin: 01/04/24 00:31 Dose: 1 mg Documented By: BRENT Hydromorphone HCl (Hydromorphone 0.5 Mg Inj) 0.5 mg IV NOW ONE Stop: 01/04/24 01:52 Last Admin: 01/04/24 01:54 Dose: 0.5 mg Documented By: BRENT Sodium Chloride (Normal Saline 0.9%) 1,000 mls @ 1,000 mls/hr IV BOLUS ONE Stop: 01/04/24 01:23 Last Infusion: 01/04/24 01:55 Dose: Infused Documented By: Admin: 01/04/24 00:31 Dose: 1,000 mls/hr Documented By: BRENT Sodium Chloride (Normal Saline 0.9%) 1,000 mls @ 1,000 mls/hr IV BOLUS ONE Stop: 01/04/24 03:07 Last Admin: 01/04/24 02:28 Dose: Not Given Documented By: BRENT Ondansetron HCl (Ondansetron 4 Mg/2 Ml Inj) 4 mg IV NOW ONE Stop: 01/04/24 04:10 Vital Signs Vital signs: Vital Signs - 8 hr 01/04/24 00:16 01/04/24 00:21 01/04/24 00:30 Temperature 97.1 F L Pulse Rate 77 76 76 Respiratory Rate 16 Blood Pressure 95/53 L Pulse Oximetry 94 100 100 Oxygen Delivery Method Room Air 01/04/24 00:30 01/04/24 01:00 01/04/24 01:00 Temperature Pulse Rate 77 Respiratory Rate Blood Pressure 92/55 L 95/53 L Pulse Oximetry 98 Oxygen Delivery Method Room Air 01/04/24 01:30 01/04/24 01:30 01/04/24 02:00 Temperature Pulse Rate 77 Respiratory Rate Blood Pressure 95/53 L 85/51 L Pulse Oximetry 100 Oxygen Delivery Method 01/04/24 02:00 01/04/24 02:30 01/04/24 02:30 Temperature Pulse Rate 77 79 Respiratory Rate 18 Blood Pressure 90/55 L Pulse Oximetry 98 99 Oxygen Delivery Method 01/04/24 03:00 01/04/24 03:02 01/04/24 03:02 Temperature Pulse Rate 78 78 Respiratory Rate Blood Pressure 96/49 L Pulse Oximetry 98 98 Oxygen Delivery Method 01/04/24 03:30 01/04/24 03:30 Temperature Pulse Rate 79 Respiratory Rate 18 Blood Pressure 89/52 L Pulse Oximetry 99 Oxygen Delivery Method MDM - Recheck/Abnormal Lab/Rx Medical Records Attestation: I reviewed the patient's medical records. Lab Data Attestation: I reviewed the patient's lab results. 01/03/24 21:00 01/03/24 21:00 Labs: Lab Results 01/03/24 01/04/24 01/04/24 Range/Units 21:00 01:22 01:35 WBC 19.9 H (4.5-11.0) X10^3/uL RBC 3.08 L (4.0-5.2) X10^6/uL Hgb 8.9 L (12.0-16.0) g/dL Hct 26.3 L (36-46) % MCV 85.2 (80-100) fL MCH 29.0 (26-34) PG MCHC 34.0 (30-36) % RDW 12.2 (11.6-14.8) % Plt Count 346 (150-400) X10^3/uL Neut % (Auto) 92.5 H (50-75) % Lymph % (Auto) 3.7 L (25-40) % [place] % (Auto) 3.6 (3-14) % Eos % (Auto) 0.0 L (2-4) % Baso % (Auto) 0.2 (0-2) % Neut # (Auto) 45501 H (2031-0453) /uL Lymph # (Auto) 700 L (5792-7976) /uL [place] # (Auto) 700 (0-900) /uL Eos # (Auto) 0 (0-450) /uL Baso # (Auto) 0 (0-100) /uL VBG pH 7.30 L (7.33-7.43) VBG pCO2 27.7 L (45-50) mmHg VBG pO2 58 H (35-45) mmHg VBG HCO3 14 L (24-28) mmol/L VBG Total CO2 13 L (24-29) mmol/L VBG O2 Saturation 87 H (70-75) % VBG Base Excess -11.3 L (0-4) mmol/L Sodium 130 L (137-145) mmol/L Potassium 3.1 L (3.4-5.1) mmol/L Chloride 82 L (98-107) mmol/L Carbon Dioxide 12 L (22-32) mmol/L BUN 108 H* (7-17) mg/dL Creatinine 11.21 H* (0.52-1.04) mg/dL Estimated GFR 3 L (>60) mL/min BUN/Creatinine Ratio 9.6 (6-22) Glucose 165 H (80-110) mg/dL Lactate 1.1 (0.7-2.1) mmol/L Calcium 5.8 L* (8.4-10.2) mg/dL Total Bilirubin 0.6 (0.2-1.3) mg/dL Conjugated Bilirubin 0.0 (0.0-0.3) md/dL Unconjugated Bilirubin 0.0 (0.0-1.1) mg/dL AST 61 H (14-36) IU/L ALT 18 (<35) IU/L Alkaline Phosphatase 247 H (38-126) U/L Total Protein 7.0 (6.3-8.2) g/dL Albumin 3.4 L (3.5-5.0) g/dL Globulin 3.6 (1.7-4.1) g/dL Albumin/Globulin Ratio 0.9 L (1.0-2.8) Lipase 86 (23-300) U/L Urine Color Yellow Urine Appearance Clear Urine pH 5.0 (4.5-8.0) Ur Specific [place] >=1.030 H (1.000-1.035) Urine Protein 3+ H (Negative) Urine Glucose (UA) Negative (Negative) g/dL Urine Ketones Negative (NEGATIVE) Urine Occult Blood 1+ H (Negative) Urine Nitrate Negative (Negative) Urine Bilirubin Negative (NEGATIVE) Urine Urobilinogen 0.2 (0.2) E.U./dL Ur Leukocyte Esterase Negative (NEGATIVE) Urine RBC 0-1/hpf (0-5/HPF) Urine WBC None seen (0-5/HPF) Ur Squamous Epith Cells 1-5 /hpf (0-5/HPF) Amorphous Sediment 3+ Urine Bacteria None seen (None) Granular Casts 1-5/lpf (None) Ur Culture Indicated? Cult not indicated Vol Urine Centrifuged 10ml (spun) Ur Random Sodium 29 L (30-90) mmol/L Urine Creatinine 75.55 mg/dL [facility] Narrative Medical decision making narrative: Alert and upon arrival. Has been providing quite a bit history. Patient has not generalized soreness that she states is consistent with her prior history of arthritis. No fevers. Does report a decrease in oral intake and inability to take medicines over the past couple days because of the pain. Labs were obtained. Patient given pain medications. This did improve her symptoms. Lab reports today show a worsening of her kidney function with a creatinine greater than 11 and GFR of less than 5. She was still producing urine. She did urinate prior to coming to the ER. Patient has received greater than 2 L of fluids since arrival here to the ER. Her urinalysis does not show any signs of infection. Her FeNa is 3.3% which points towards an intrinsic renal failure. Her potassium is normal. She was not fluid overloaded. She was not have signs of obstructive uropathy. She was not fluid overloaded. I do suspect that there is a degree of dehydration. Patient has a pH of 7.3. Her bicarb was 13.6. She does have a compensated acidosis. Lactate is normal. Did have some hypotension episodes with a systolic blood pressure in her 80s but mean arterial pressure has always been in the mid 60s. Review of the medical record shows that she has been hypertensive in the past however she did have blood pressures recorded in the low 100s at prior visits within the past year. She has a leukocytosis. No specific source of infection is found. She was no abdominal tenderness. Afebrile. No URI symptoms. No UTI symptoms. No symptoms consistent with a cellulitis. Blood cultures were obtained but will hold on antibiotics for now. Patient does require transfer to facility for her acute renal failure. I did discuss the case with Dr. Morales hospitalist at [facility] who accepts the patient in transfer. Patient is stable for transport. Discharge Plan Departure Patient Disposition: [facility] Clinical Impression: Acute renal failure, Leukocytosis Prescriptions: No Action hydrocodone-acetaminophen 5-325 mg tablet 1 tab PO Q8H infliximab [Remicade] 100 mg Recon Soln 100 mg IV SEEINSTR Rx Instructions: Infuse into a venous catheter Managed by Dr. Palacio escitalopram oxalate [Lexapro] 10 mg Tablet 10 mg PO DAILY sodium chloride 0.65 % Aerosol,[place] 1 spray INTRANASAL BID rosuvastatin [Crestor] 40 mg Tablet 40 mg PO DAILY fenofibrate nanocrystallized [Tricor] 48 mg Tablet 48 mg PO DAILY aspirin 81 mg Capsule 81 mg PO DAILY amlodipine 10 mg tablet 10 mg PO DAILY Qty: 30 2RF hydrochlorothiazide 25 mg tablet 25 mg PO DAILY Qty: 30 2RF ondansetron 4 mg tablet,disintegrating 4 - 8 mg PO Q6H PRN (Reason: nausea/vomiting) hydroxyzine HCl 25 mg tablet 25 mg PO Q4-6H PRN (Reason: pain) Novolin N NPH U-100 Insulin 100 unit/mL Suspension 5 unit SUBCUT QPM Patient Comments: hasn't been taking recently due to low glucose levels insulin aspart U-100 [Novolog FlexPen U-100 Insulin] 100 unit/mL Insulin Pen 4 - 10 unit SUBCUT QPM (DME) insulin syringe-needle U-100 [BD Insulin Syringe] 0.3 mL 29 gauge x 1/2 Syringe fluticasone propion-salmeterol [Advair Diskus] 250-50 mcg/dose Blister With Device 1 inh INHALATION BID acebutolol 400 mg Capsule 400 mg PO DAILY levothyroxine [Synthroid] 75 mcg Tablet 100 mcg PO DAILY albuterol sulfate [Ventolin HFA] 90 mcg/actuation Hfa Aerosol Inhaler 2 puff INHALATION Q4-6H PRN (Reason: Bronchodilation) omeprazole 20 mg Tablet,Delayed Release (Dr/Ec) 20 mg PO BID (DME) pen needle, diabetic [Unifine Pentips] 31 gauge x 5/16 Needle (DME) E-Z Spacer Spacer (DME) One [employer] In Vitro Strip strip Referrals: Miscellaneous,Doctor, MD [Primary Care Provider] -
[2024-01-04] MEDS: SODIUM CHLORIDE 0.9% 1,000 ML 1000 ML IV (00:31)
[2024-01-04] MEDS: HYDROMORPHONE 1 MG INJ IV (00:31)
[2024-01-04 01:01] LABS: Add Manual Diff / Slide Review NO; Basophils Absolute Auto 0 /uL (0-100); Basophils Percent Auto 0.2 % (0-2); Eosinophils Absolute Auto 0 /uL (0-450); Hematocrit 26.3 % (36-46); Hemoglobin 8.9 g/dL (12.0-16.0); Lymphocytes Absolute Auto 700 /uL (1100-4500); Lymphocytes Percent Auto 3.7 % (25-40); Mean Corpuscular Volume 85.2 fL (80-100); Monocytes Absolute Auto 700 /uL (0-900); Monocytes Percent Auto 3.6 % (3-14); Neutrophils Absolute Auto 18400 /uL (1500-7000); Neutrophils Percent Auto 92.5 % (50-75); Platelet Count 346 X10^3/uL (150-400); Red Blood Cell Count 3.08 X10^6/uL (4.0-5.2); Red Cell Distribution Width 12.2 % (11.6-14.8); White Blood Cell Count 19.9 X10^3/uL (4.5-11.0)
[2024-01-04 01:03] LABS: BUN Creatinine Ratio 9.6 (6-22); Carbon Dioxide 12 mmol/L (22-32); Chloride 82 mmol/L (98-107); Estimated Glomerular Filt Rate 3 mL/min (>60); Glucose 165 mg/dL (80-110); HEMOLYSIS < 15 (0-50); Potassium 3.1 mmol/L (3.4-5.1); Sodium 130 mmol/L (137-145)
[2024-01-04 01:07] LABS: Blood Urea Nitrogen 108 mg/dL (7-17)
[2024-01-04 01:08] LABS: Calcium 5.8 mg/dL (8.4-10.2)
[2024-01-04 01:26] LABS: Base Excess VBG -11.3 mmol/L (0-4); HCO3 VBG 14 mmol/L (24-28); Oxygen Saturation VBG 87 % (70-75); PCO2 VBG 27.7 mmHg (45-50); PO2 VBG 58 mmHg (35-45); Total CO2 VBG 13 mmol/L (24-29)
[2024-01-04 01:46] LABS: Appearance Urine UA CLEAR; Bilirubin Urine UA NEGATIVE (NEGATIVE); Color Urine UA YELLOW; Glucose Urine UA NEGATIVE (Negative); Ketones Urine UA NEGATIVE (NEGATIVE); Leukocyte Esterase Urine UA NEGATIVE (NEGATIVE); Nitrite Urine UA NEGATIVE (Negative); Occult Blood Urine UA 1+ (Negative); Protein Urine UA 3+ (Negative); Specific Gravity Urine UA >=1.030 (1.000-1.035); Urobilinogen Urine UA 0.2 E.U./dL (0.2)
[2024-01-04 01:53] LABS: Amorphous Sediment Urine 3+; Bacteria Urine None Seen; Culture Indicated Urine Cult Not Indicated; Granular Casts Urine 1-5/LPF; RBC Urine 0-1/HPF (0-5/HPF); Squamous Epithelial Cell Urine 1-5 /HPF (0-5/HPF); Urine Volume 10mL (spun); WBC Urine None Seen (0-5/HPF)
[2024-01-04] MEDS: HYDROMORPHONE 0.5 MG INJ IV (01:54)
[2024-01-04] MEDS: SODIUM CHLORIDE 0.9% 1,000 ML 150 ML IV (01:55)
[2024-01-04 02:03] LABS: Creatinine Urine Random 75.55 mg/dL; Sodium Urine Random 29 mmol/L (30-90)
[2024-01-04 02:22] LABS: Alanine Aminotransferase 18 IU/L (<35); Albumin 3.4 g/dL (3.5-5.0); Albumin Globulin Ratio 0.9 (1.0-2.8); Alkaline Phosphatase 247 U/L (38-126); Aspartate Aminotransferase 61 IU/L (14-36); Bilirubin Total 0.6 mg/dL (0.2-1.3); Globulin 3.6 g/dL (1.7-4.1); HEMOLYSIS < 15 (0-50); Lactate (Lactic Acid) 1.1 mmol/L (0.7-2.1); Lipase 86 U/L (23-300)
--- NOTE | 2024-01-04 03:59 | PC.NURSE ---
report given to CHRISTIAN Carrillo at [facility] go [facility]
[2024-01-04] MEDS: ONDANSETRON 4 MG/2 ML INJ IV (04:24)
== END 2024-01-04 04:26 | disposition short-term general hospital (02) ==
PROVIDERS: Emergency Provider Emergency Medicine
DX: N19 Unspecified kidney failure (principal); D72.829 Elevated white blood cell count, unspecified; L40.50 Arthropathic psoriasis, unspecified; Z79.899 Other long term (current) drug therapy
CPT/HCPCS: 36415; 51798; 80048; 80076; 81001; 82570; 82805; 83605; 83690; 84300; 85025; 87040; 96361; 96374; 96375; 96376; 99284; J1170; J2405